=== PATIENT | female | born 1980 | race Two or more races ===

== ENCOUNTER 2020-05-28 15:28 | Outpatient (REF) | payer MEDICARE, MEDICAID, SELFPAY | END 2020-05-28 15:29 | disposition home or self-care (01) | LOC: HO.LAB 15:28 | PROVIDERS: Visit Provider Internal Medicine | DX: Z20.828 Contact with and (suspected) exposure to other viral communicable diseases (principal) | CPT/HCPCS: 87635 ==

== ENCOUNTER 2021-12-23 19:28 | Emergency (ER) | payer MEDICARE, MEDICAID, SELFPAY ==
--- NOTE | ~2021-12-23 | CT_ITS ---
EXAMINATION: CT ANGIOGRAM OF THE CHEST WITH AND WITHOUT CONTRAST (CT PULMONARY ANGIOGRAM FOR PE) CLINICAL INFORMATION: Reason for Exam right-sided chest pain with elevated D-dimer COMPARISON: Chest x-ray 12/23/2021 TECHNIQUE: Prior to contrast administration, noncontrast localization images were obtained. Subsequently, multidetector volumetric imaging was performed from the thoracic inlet to below the diaphragms following the administration of 100 mL Omnipaque 350 intravenous contrast. No contrast reaction reported Sagittal, coronal, and MIP oblique sagittal reformatted images were obtained on the CT workstation, uploaded to PACS, and reviewed. This CT examination was performed using dose optimization techniques as appropriate, variously including the following: *Automated exposure control *Adjustment of mA and/or kV according to patient size (this includes techniques or standardized protocols for targeted exams where dose is matched to indication/reason for exam; i.e. extremities or head) *Use of iterative reconstruction technique Total exam dose-length product 489 mGy-cm FINDINGS: QUALITY OF STUDY/CONTRAST BOLUS: Satisfactory. PULMONARY ARTERIES: No central or segmental pulmonary emboli. THORACIC AORTA: No aneurysm or dissection. LUNG: No focal consolidation, nodules or masses. Small calcified granuloma the right lower lobe. PLEURA: No pleural effusion or pneumothorax. MEDIASTINUM: Normal heart size. No pericardial effusion. No hilar or mediastinal lymphadenopathy. No evidence of septal bowing or right heart strain. CHEST WALL/AXILLA: No axillary or internal mammary lymphadenopathy. OSSEOUS STRUCTURES: No acute or suspicious osseous abnormality. Multilevel degenerative spondylosis of the dorsal spine. Focal bony exostosis of the posterior right fourth rib UPPER ABDOMEN: Unremarkable. No reflux of contrast into the hepatic veins to suggest elevated right heart pressures. CT/CT angio chest PE protocol IMPRESSION: No evidence of pulmonary embolism. No acute abnormality the chest. VTE: negative
--- NOTE | ~2021-12-23 | XR_ITS ---
EXAMINATION: XR CHEST CLINICAL INFORMATION: Chest pain COMPARISON: None TECHNIQUE: Frontal view of the chest was obtained. FINDINGS: No significant abnormality is noted involving the heart, lungs, mediastinum, bony thorax or soft tissues. XR/XR chest 1V IMPRESSION: Unremarkable chest examination.
--- NOTE | 2021-12-23 19:36 | ECG_ITS ---
Test Reason : chest pain Blood Pressure : / mmHG Vent. Rate : 080 BPM Atrial Rate : 080 BPM P-R Int : 160 ms QRS Dur : 092 ms QT Int : 368 ms P-R-T Axes : 029 011 024 degrees QTc Int : 424 ms Normal sinus rhythm Normal ECG No previous ECGs available Referred By: Generic ED Physician Electronically Signed By:Dwight oTledo
[2021-12-23 20:08] LABS: Basophils Absolute Auto 0.1 X10*3/uL (0.0-0.2); Basophils Percent Auto 0.8 % (0-2); Eosinophils Absolute Auto 0.2 X10*3/uL (0.0-0.4); Eosinophils Percent Auto 2.2 % (0-4); Hematocrit 37.4 % (37.0-47.0); Imm Gran Abs Auto 0.03 X10*3/uL (0.00-0.03); Imm Gran Pct Auto 0.3 % (0.0-0.4); Lymphocytes Absolute Auto 3.4 X10*3/uL (1.2-4.9); MANUAL DIFF FLAG NO; Mean Corpuscular HGB Conc 32.1 g/dl (31.0-35.0); Mean Corpuscular Hemoglobin 28.2 pg (27.0-33.0); Mean Platelet Volume 10.3 fL (9.4-12.3); Monocytes Absolute Auto 0.7 X10*3/uL (0.1-1.2); Monocytes Percent Auto 6.5 % (2-11); Neutrophils Absolute Auto 5.9 x10*3/uL (2.0-8.3); Neutrophils Percent Auto 57.2 % (45-73); Platelet Count 380 X10*3/uL (160-400); Red Blood Count 4.25 X10*6/uL (4.20-5.50); Red Cell Distribution Width 13.1 % (11.0-16.0); White Blood Count 10.4 X10*3/uL (4.8-10.8)
[2021-12-23 20:24] LABS: Anion Gap 12 (12-20); Blood Urea Nitrogen 14 mg/dL (9-16); Calcium 9.1 mg/dL (8.4-10.2); Carbon Dioxide 29 mmol/L (22-29); Chloride 101 mmol/L (96-108); Estimated Glomerular Filt Rate > 60; Glucose Random 85 mg/dL (60-115); Potassium 4.1 mmol/L (3.3-5.1); Sodium 138 mmol/L (135-145)
[2021-12-23 20:33] LABS: Troponin-I High Sensitivity < 3.5 ng/L (<3.5-17.0)
[2021-12-23 21:27] VITALS: BP 128/63; PULSE 76; RESP 18; TEMP 36.3; O2SAT 98; BMI 40.8
[2021-12-23 21:37] LABS: Appearance Urine CLEAR; Color Urine YELLOW; Glucose Urine UA NEG (NEG); Leukocyte Esterase Urine NEG (NEG); Nitrite Urine NEG (NEG); PH 6.5 (5.0-8.0); Urine Blood NEG (NEG); Urine Ketones NEG (NEG); Urine Protein NEG (NEG-TRACE)
[2021-12-23 21:38] LABS: UPreg QC Valid YES; Urine Pregnancy NEGATIVE (NEGATIVE)
--- NOTE | 2021-12-23 22:30 | ED.CHESTPAIN ---
HPI - Chest Pain General Chief Complaint: Chest Pain Stated Complaint: chest pain ,back pain, dif. 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 and on gets worse when taking deep breath and palpation no cough no shortness of breath no palpitation patient never had similar pain in the past patient not on any control pills does have a family history of blood clots but patient never had blood clots Related Data Previous Rx's Medication Instructions Recorded ibuprofen 600 mg tablet 600 mg PO Q6H PRN #20 tab 12/24/21 Allergies Allergy/AdvReac Type Severity Reaction Status Date / Time No Known Allergies Allergy Unverified 05/08/20 17:51 Review of Systems Review of Systems: Yes all other systems are reviewed and are negative [facility] Past Medical History Medical History Obese Social History Social History Advance Directives: No Physical Exam Vital Signs: Vital Signs: Last Vital Signs Temp 98.4 F 12/23/21 23:44 Pulse 70 12/23/21 23:44 Resp 18 12/23/21 23:44 BP 131/92 H 12/23/21 23:44 Pulse Ox 100 12/23/21 23:44 BMI result Body Mass Index 40.8 Appearance: Alert. Oriented X3. No acute distress. ENT: Pharynx normal. Oral Mucosa moist Neck: Normal inspection. Neck supple. CVS: Normal heart rate and rhythm. Pulses normal. Respiratory: No respiratory distress. Equal air entry bilateral, no wheezing/rales/rhonchi tenderness right 2nd intercostal space Abdomen: Soft and nontender. Bowel sounds are present, no mass palpable, Skin: Skin warm and dry. Normal skin color. Normal skin turgor. Extremities: No lower extremity edema. No calf tenderness Neuro: Oriented X 3. MDM - Chest Pain MDM Narrative Medical decision making narrative: Patient atypical pain reproducible on palpation of the 2nd right intercostal space normal EKG normal to high sensitive troponin. Patient does have family history of DVTs will check for D-dimer. 23:17 patient slightly elevated D-dimer with strong family history of DVTs get CTA chest to rule out PE 01:25 CTA chest negative for PE discharge patient home on analgesics for costochondritis Lab Data Attestation: I reviewed the patient's lab results. Result diagrams: 12/23/21 19:59 12/23/21 19:59 Labs: Lab Results 12/23/21 12/23/21 12/23/21 Range/Units 19:59 19:59 19:59 WBC 10.4 (4.8-10.8) X10*3/uL RBC 4.25 (4.20-5.50) X10*6/uL Hgb 12.0 (12.0-16.0) g/dl Hct 37.4 (37.0-47.0) % MCV 88.0 (80.0-98.0) fL MCH 28.2 (27.0-33.0) pg MCHC 32.1 (31.0-35.0) g/dl RDW 13.1 (11.0-16.0) % Plt Count 380 (160-400) X10*3/uL MPV 10.3 (9.4-12.3) fL Immature Gran % (Auto) 0.3 (0.0-0.4) % Neut % (Auto) 57.2 (45-73) % Lymph % (Auto) 33.0 (20-40) % Wetzel % (Auto) 6.5 (2-11) % Eos % (Auto) 2.2 (0-4) % Baso % (Auto) 0.8 (0-2) % Lymph # (Auto) 3.4 (1.2-4.9) X10*3/uL Wetzel # (Auto) 0.7 (0.1-1.2) X10*3/uL Eos # (Auto) 0.2 (0.0-0.4) X10*3/uL Baso # (Auto) 0.1 (0.0-0.2) X10*3/uL Abs Immat Gran (auto) 0.03 (0.00-0.03) X10*3/uL Absolute Neuts (auto) 5.9 (2.0-8.3) x10*3/uL Absolute Nucleated RBC 0.000 (0.0-0.012) X10*3/uL Nucleated RBC % (auto) 0.0 (0.0-0.2) /100WBC D-Dimer High Sensitivty NG/ML Sodium 138 (135-145) mmol/L Potassium 4.1 (3.3-5.1) mmol/L Chloride 101 (96-108) mmol/L Carbon Dioxide 29 (22-29) mmol/L Anion Gap 12 (12-20) BUN 14 (9-16) mg/dL Creatinine 0.85 (0.5-1.4) mg/dL Estim Creat Clear Calc TNP Estimated GFR > 60 Random Glucose 85 (60-115) mg/dL Calcium 9.1 (8.4-10.2) mg/dL Troponin I High Sens < 3.5 (<3.5-17.0) ng/L Urine Color Urine Appearance Urine pH (5.0-8.0) Ur Specific Wright (1.005-1.025) Urine Protein (NEG-TRACE) MG/DL Urine Glucose (UA) (NEG) MG/DL Urine Ketones (NEG) MG/DL Urine Blood (NEG) Urine Nitrite (NEG) Ur Leukocyte Esterase (NEG) Urine Test (NEGATIVE) 12/23/21 12/23/21 12/23/21 Range/Units 21:31 21:31 22:49 WBC (4.8-10.8) X10*3/uL RBC (4.20-5.50) X10*6/uL Hgb (12.0-16.0) g/dl Hct (37.0-47.0) % MCV (80.0-98.0) fL MCH (27.0-33.0) pg MCHC (31.0-35.0) g/dl RDW (11.0-16.0) % Plt Count (160-400) X10*3/uL MPV (9.4-12.3) fL Immature Gran % (Auto) (0.0-0.4) % Neut % (Auto) (45-73) % Lymph % (Auto) (20-40) % Wetzel % (Auto) (2-11) % Eos % (Auto) (0-4) % Baso % (Auto) (0-2) % Lymph # (Auto) (1.2-4.9) X10*3/uL Wetzel # (Auto) (0.1-1.2) X10*3/uL Eos # (Auto) (0.0-0.4) X10*3/uL Baso # (Auto) (0.0-0.2) X10*3/uL Abs Immat Gran (auto) (0.00-0.03) X10*3/uL Absolute Neuts (auto) (2.0-8.3) x10*3/uL Absolute Nucleated RBC (0.0-0.012) X10*3/uL Nucleated RBC % (auto) (0.0-0.2) /100WBC D-Dimer High Sensitivty 294 NG/ML Sodium (135-145) mmol/L Potassium (3.3-5.1) mmol/L Chloride (96-108) mmol/L Carbon Dioxide (22-29) mmol/L Anion Gap (12-20) BUN (9-16) mg/dL Creatinine (0.5-1.4) mg/dL Estim Creat Clear Calc Estimated GFR Random Glucose (60-115) mg/dL Calcium (8.4-10.2) mg/dL Troponin I High Sens (<3.5-17.0) ng/L Urine Color YELLOW Urine Appearance CLEAR Urine pH 6.5 (5.0-8.0) Ur Specific Wright 1.020 (1.005-1.025) Urine Protein NEG (NEG-TRACE) MG/DL Urine Glucose (UA) NEG (NEG) MG/DL Urine Ketones NEG (NEG) MG/DL Urine Blood NEG (NEG) Urine Nitrite NEG (NEG) Ur Leukocyte Esterase NEG (NEG) Urine Test NEGATIVE (NEGATIVE) ECG Data ECG #1: Attestation: I personally reviewed and interpreted this ECG as follows: Interpretation: Normal sinus rhythm heart rate 80 beats per minute normal interval normal axis no acute ST wave changes no acute ischemia impression normal EKG Discharge Plan Discharge Clinical Impression: Costalchondritis Patient Disposition: Home, Self-Care Instructions: Costochondritis (ED) Additional Instructions: Ibuprofen for pain Follow-up with PCP if any concerns Prescriptions: New ibuprofen 600 mg tablet 600 mg PO Q6H PRN (Reason: pain) Qty: 20 0RF
[2021-12-23 22:34] VITALS: BP 124/82; PULSE 71; RESP 16; TEMP 37.1; O2SAT 99
[2021-12-23 23:10] LABS: D Dimer High Sensitivity 294 NG/ML
[2021-12-23 23:44] VITALS: BP 131/92; PULSE 70; RESP 18; TEMP 36.9; O2SAT 100
[2021-12-24] MEDS: iohexoL 350 MG/ML 100 ML INFUS..BTL IV (00:24)
[2021-12-24] MEDS: Ketorolac Tromethamine 30 MG/ML VIAL IVPUSH (01:32)
== END 2021-12-24 01:56 | disposition home or self-care (01) ==
PROVIDERS: Emergency Provider Internal Medicine
DX: M94.0 Chondrocostal junction syndrome [Tietze] (principal); R79.1 Abnormal coagulation profile
CPT/HCPCS: 36415; 71045; 71275; 80048; 81003; 81025; 84484; 85025; 85379; 93005; 96374; 99284; J1885; Q9967

== ENCOUNTER 2022-03-03 17:46 | Emergency (ER) | payer MEDICARE, MEDICAID, SELFPAY ==
--- NOTE | ~2022-03-03 | US_ITS ---
EXAMINATION: US PELVIS CLINICAL INFORMATION: Ovarian torsion versus abscess, pelvic pain COMPARISON: 02/25/2015 TECHNIQUE: Ultrasound of the pelvis is performed using both transabdominal and transvaginal transducers along with Doppler. Transvaginal imaging is performed due to inadequate visualization transabdominally. FINDINGS: The uterus measures 13.0 cm in length and 4.6 x 6.9 cm in AP and transverse dimensions. Endometrial stripe measures 0.6 cm in thickness. The bilateral ovaries are only visible on transabdominal imaging. The right ovary measures 3.7 x 2.0 x 2.6 cm, and the left ovary measures 2.6 x 1.7 x 1.8 cm. Several follicles are noted bilaterally. Doppler evaluation demonstrates normal-appearing arterial and venous waveforms in the bilateral ovaries. No free fluid is seen. US/US pelvic ovarian doppler IMPRESSION: No acute findings identified.
--- NOTE | ~2022-03-03 | US_ITS ---
EXAMINATION: US PELVIS CLINICAL INFORMATION: Ovarian torsion versus abscess, pelvic pain COMPARISON: 02/25/2015 TECHNIQUE: Ultrasound of the pelvis is performed using both transabdominal and transvaginal transducers along with Doppler. Transvaginal imaging is performed due to inadequate visualization transabdominally. FINDINGS: The uterus measures 13.0 cm in length and 4.6 x 6.9 cm in AP and transverse dimensions. Endometrial stripe measures 0.6 cm in thickness. The bilateral ovaries are only visible on transabdominal imaging. The right ovary measures 3.7 x 2.0 x 2.6 cm, and the left ovary measures 2.6 x 1.7 x 1.8 cm. Several follicles are noted bilaterally. Doppler evaluation demonstrates normal-appearing arterial and venous waveforms in the bilateral ovaries. No free fluid is seen. US/US pelvic and transvaginal IMPRESSION: No acute findings identified.
--- NOTE | ~2022-03-03 | CT_ITS ---
EXAMINATION: CT ABDOMEN AND PELVIS WITHOUT CONTRAST CLINICAL INFORMATION: Left lower quadrant pain, rule out diverticulitis COMPARISON: None TECHNIQUE: Multidetector volumetric imaging was performed from the superior aspect of the liver through the pubic symphysis. Sagittal and coronal reformatted images were obtained on the technologist's workstation. This CT examination was performed using dose optimization techniques as appropriate, variously including the following: *Automated exposure control *Adjustment of mA and/or kV according to patient size (this includes techniques or standardized protocols for targeted exams where dose is matched to indication/reason for exam; i.e. extremities or head) *Use of iterative reconstruction technique DLP: 935 mGy-cm FINDINGS: LUNG BASES: The visualized lung bases are unremarkable. LIVER, GALLBLADDER, AND BILIARY TREE: The liver is normal in size, shape, and attenuation. No focal hepatic lesion or biliary ductal dilatation is present. Patient is status post cholecystectomy. PANCREAS: Unremarkable. SPLEEN: Unremarkable. ADRENAL GLANDS: Unremarkable. KIDNEYS AND URETERS: No hydronephrosis or obstructing calculus identified bilaterally. A few scattered calculi are present in the left kidney measuring up to 4 mm. BLADDER: Nearly empty and not well evaluated. GASTROINTESTINAL TRACT: No evidence of bowel obstruction. There is sigmoid colon diverticulosis without evidence of diverticulitis. The appendix is unremarkable. No free fluid or free air is seen. ABDOMINAL WALL: No significant hernia is appreciated. LYMPH NODES: Scattered mesenteric and retroperitoneal subcentimeter lymph nodes are present, without significant enlargement by size criteria. VASCULAR: Unremarkable. PELVIC VISCERA: Unremarkable. OSSEOUS STRUCTURES: Scattered degenerative endplate changes are present in the spine. CT/CT abdomen pelvis wo con IMPRESSION: No acute findings identified in the abdomen/pelvis. Colonic diverticulosis without findings of diverticulitis.
--- NOTE | 2022-03-03 17:51 | ECG_ITS ---
Test Reason : dizzy/abdminal pain Blood Pressure : / mmHG Vent. Rate : 081 BPM Atrial Rate : 081 BPM P-R Int : 162 ms QRS Dur : 082 ms QT Int : 372 ms P-R-T Axes : 037 012 027 degrees QTc Int : 432 ms Normal sinus rhythm Normal ECG When compared with ECG of 23-DEC-2021 19:46, No significant change was found Referred By: Generic ED Physician Electronically Signed By:NORA MARTINEZ MD
[2022-03-03 19:33] VITALS: BP 149/101; PULSE 84; RESP 18; TEMP 36.8; O2SAT 98; BMI 43.4
[2022-03-03 19:48] LABS: MANUAL DIFF FLAG NO
[2022-03-03 19:51] LABS: Appearance Urine CLEAR; Color Urine YELLOW; Glucose Urine UA NEG (NEG); Leukocyte Esterase Urine NEG (NEG); Nitrite Urine NEG (NEG); Specific Gravity - Urine >= 1.030 (1.005-1.025); UACC Culture Trigger NO; Urine Blood TRACE (NEG); Urine Ketones NEG (NEG); Urine Protein TRACE MG/DL (NEG-TRACE)
[2022-03-03 19:53] LABS: UPreg QC Valid YES; Urine Pregnancy NEGATIVE (NEGATIVE)
[2022-03-03 19:58] LABS: RBC Urine 0-2 /HPF (0); Squamous Epithelial Cell Urine 1+ /LPF; WBC Urine 0 /HPF (0-4)
[2022-03-03 20:00] LABS: Basophils Absolute Auto 0.1 X10*3/uL (0.0-0.2); Basophils Percent Auto 0.7 % (0-2); Eosinophils Absolute Auto 0.2 X10*3/uL (0.0-0.4); Eosinophils Percent Auto 1.6 % (0-4); Hematocrit 38.9 % (37.0-47.0); Hemoglobin 12.4 g/dl (12.0-16.0); Imm Gran Abs Auto 0.06 X10*3/uL (0.00-0.03); Imm Gran Pct Auto 0.4 % (0.0-0.4); Lymphocytes Absolute Auto 3.4 X10*3/uL (1.2-4.9); Lymphocytes Percent Auto 25.5 % (20-40); Mean Corpuscular HGB Conc 31.9 g/dl (31.0-35.0); Mean Corpuscular Hemoglobin 27.3 pg (27.0-33.0); Mean Corpuscular Volume 85.7 fL (80.0-98.0); Mean Platelet Volume 10.1 fL (9.4-12.3); Monocytes Absolute Auto 0.8 X10*3/uL (0.1-1.2); Monocytes Percent Auto 6.3 % (2-11); Neutrophils Absolute Auto 8.8 x10*3/uL (2.0-8.3); Neutrophils Percent Auto 65.5 % (45-73); Platelet Count 422 X10*3/uL (160-400); Red Blood Count 4.54 X10*6/uL (4.20-5.50); Red Cell Distribution Width 13.4 % (11.0-16.0); White Blood Count 13.4 X10*3/uL (4.8-10.8)
[2022-03-03 20:07] LABS: COVID-19 Test Negative (Negative)
[2022-03-03 20:08] LABS: Alanine Aminotransferase 38 U/L (0-31); Albumin Level 4.2 g/dL (3.5-5.0); Alkaline Phosphatase 72 U/L (39-117); Anion Gap 11 (12-20); Aspartate Amino Transferase 29 U/L (5-31); Bilirubin Total 0.4 mg/dL (0.0-1.0); Blood Urea Nitrogen 13 mg/dL (9-16); Calcium 8.8 mg/dL (8.4-10.2); Carbon Dioxide 27 mmol/L (22-29); Chloride 104 mmol/L (96-108); Creatinine Clr Calc Pharmacy 94.4; Estimated Glomerular Filt Rate > 60; Glucose Random 105 mg/dL (60-115); Potassium 4.6 mmol/L (3.3-5.1); Sodium 137 mmol/L (135-145); Total Protein 7.9 g/dL (6.5-8.0)
--- NOTE | 2022-03-04 00:18 | ED_ITS ---
HPI - Abdominal Pain General Chief Complaint: Abdominal Pain <FABIANO Coelho Last Filed: 03/04/22 03:38> Stated Complaint: Cramping/Dizziness <FABIANO Coelho Last Filed: 03/04/22 03:38> Time Seen by Provider: 03/04/22 01:56 <FABIANO Coelho Last Filed: 03/04/22 03:38> Source: patient <FABIANO Coelho Last Filed: 03/04/22 03:38> Mode of arrival: ambulatory <FABIANO Coelho Last Filed: 03/04/22 03:38> Limitations: no limitations <FABIANO Coelho Last Filed: 03/04/22 03:38> History of Present Illness HPI narrative: 41 yold female presents to the ED for lower abdominal cramping, brown discharge, and lower back pain since yesterday. Patient states irregular menstruation due to PCOS and her pain presenlty is ismiliary to her menstruation. Patient admits to be sexually active with no protection with same partner. patient admits to [facility] of PCoS and chlamydia <FABIANO Coelho Last Filed: 03/04/22 03:38> MD elicited complaint: abdominal pain <FABIANO Coelho Last Filed: 03/04/22 03:38> Related Data Home Medications: Previous Rx's Medication Instructions Recorded ibuprofen 600 mg tablet 600 mg PO Q6H PRN pain #20 tabs 12/24/21 naproxen 500 mg tablet 500 mg PO BID PRN pain 10 days #20 03/04/22 tabs <FABIANO Coelho Last Filed: 03/04/22 03:38> Allergies/Adverse Reactions: Allergies Allergy/AdvReac Type Severity Reaction Status Date / Time No Known Allergies Allergy Verified 03/03/22 19:33 <FABIANO Coelho Last Filed: 03/04/22 03:38> Review of Systems Review of Systems lower abdominal cramping with brown discharge and back pain. <FABIANO Coelho Last Filed: 03/04/22 03:38> Yes all other systems are reviewed and are negative <FABIANO Coelho Last Filed: 03/04/22 03:38> [facility] Past Medical History Medical History: Medical History Obese <FABIANO Coelho - Last Filed: 03/04/22 03:38> Social History Social History: Social History Alcohol intake: never Patient Tobacco Use Status: Current everyday Tobacco user Smoked in Last 30 Days: Yes Use of substances other than those prescribed or required for medical reasons: No Advance Directives: No Patient : No <FABIANO Coelho - Last Filed: 03/04/22 03:38> Physical Exam ED Vital Signs: Vital Signs - 24 hr 03/03/22 19:33 03/04/22 00:22 Temperature 98.2 F 97.6 F Pulse Rate 84 61 Respiratory Rate 18 17 Blood Pressure 149/101 H 125/86 Pulse Oximetry 98 98 Oxygen Delivery Method Room Air Room Air BMI result Body Mass Index 43.4 <FABIANO Coelho - Last Filed: 03/04/22 03:38> Vital Signs - 24 hr 03/03/22 19:33 03/04/22 00:22 Temperature 98.2 F 97.6 F Pulse Rate 84 61 Respiratory Rate 18 17 Blood Pressure 149/101 H 125/86 Pulse Oximetry 98 98 Oxygen Delivery Method Room Air Room Air BMI result Body Mass Index 43.4 <Seth Gann MD - Last Filed: 03/04/22 04:35> Const General: cooperative, healthy appearing, comfortable, no acute distress, well developed, alert, awake and Physically active <FABIANO Coelho - Last Filed: 03/04/22 03:38> Orientation/consciousness: oriented to time and patient oriented x3 <FABIANO Coelho Last Filed: 03/04/22 03:38> HENMT Head: Yes normal to inspection, Yes No palpable skull fracture present, Yes normocephalic, Yes atraumatic and No abrasion <FABIANO Coelho Last Filed: 03/04/22 03:38> Eyes General: appearance normal, both eyes and all related structures <FABIANO Coelho Last Filed: 03/04/22 03:38> Neck Neck: Yes normal visual inspection, Yes full ROM, Yes no lymphadenopathy, Yes no meningeal signs, Yes trachea midline, Yes supple, No anterior neck swelling and No tender <FABIANO Coelho Last Filed: 03/04/22 03:38> Chest Chest palpation & inspection: normal inspection of the chest and normal palpation of entire chest wall <FABIANO Coelho Last Filed: 03/04/22 03:38> Resp Effort & Inspection: normal respiratory effort and able to speak in complete sentences <FABIANO Neal Tolu Last Filed: 03/04/22 03:38> Auscultation: clear to auscultation bilaterally <FABIANO Coelho Last Filed: 03/04/22 03:38> Cardio Jugular venous distension: no JVD <FABIANO Coelho Last Filed: 03/04/22 03:38> Heart sounds: S1 normal heart sound present and S2 normal heart sound present <FABIANO Coelho Last Filed: 03/04/22 03:38> GI Inspection: Yes normal to inspection and No abdominal wall ecchymosis <FABIANO Coelho Tolu Last Filed: 03/04/22 03:38> Palpation (GI): Soft to palpation, not firm, Tenderness to palpation present (GI) suprapubicly (bilaterally), no guarding and not rigid <FABIANO Coelho Tolu Last Filed: 03/04/22 03:38> Other: positive for adenxal tenderness bilaterally on palpation. Positive for mucus is discharged. Mild CMT. <FABIANO Coelho Tolu Last Filed: 03/04/22 03:38> General: No CVA tenderness and Yes no CVA tenderness <FABIANO Coelho Tolu Last Filed: 03/04/22 03:38> Back/Spine/Pelvis Back: no CVA tenderness, No CVA tenderness and No ecchymosis <FABIANO Coelho Last Filed: 03/04/22 03:38> Skin General skin exam: no rashes or lesions noted and elasticity normal <FABIANO Coelho Tolu Last Filed: 03/04/22 03:38> Neuro General: oriented to time, patient oriented x3, gait normal, no meningeal signs and CN's II-XI intact bilaterally <FABIANO Coelho - Last Filed: 03/04/22 03:38> Cranial nerves: Yes CN's II-XII intact bilaterally <FABIANO Coelho - Last Filed: 03/04/22 03:38> Extrem General: Yes normal to inspection and Yes full ROM <FABIANO Coelho - Last Filed: 03/04/22 03:38> Psych Appearance: grossly normal, well kempt and not disheveled <FABIANO Coelho - Last Filed: 03/04/22 03:38> Course Course Course Narrative: labs ordered <FABIANO Coelho - Last Filed: 03/04/22 03:38> Reevaluation(s) Reevaluation #1: Pending ultrasound. The EKG negative STEMI. Pending troponin due to patient stating dizziness earlier yesterday morning and she is 41 years old. No need for head CT scan not suspect stroke. NIH score 0. patient feels better after receiving Toradol. Ultrasound and troponin pending. Dr. jin will follow <FABIANO Coelho - Last Filed: 03/04/22 03:38> Time: 03:25 <FABINAO Coelho - Last Filed: 03/04/22 03:38> MDM - Abdominal Pain MDM Narrative Medical decision making narrative: Pelvic pain <FABIANO Coelho - Last Filed: 03/04/22 03:38> Patient with lower abdominal pain ultrasound negative for Matteo cyst CT scan was also done which is negative for diverticulitis patient had diverti culosis and nonspecific lower abdominal pain vitals are stable labs are stable discharge patient home <Seth Gann MD - Last Filed: 03/04/22 04:35> Lab Data Attestation: I reviewed the patient's lab results. <Seth Gann MD - Last Filed: 03/04/22 04:35> Result diagrams: : 03/03/22 19:42 03/03/22 19:42 <FABIANO Coelho - Last Filed: 03/04/22 03:38> Labs: Lab Results 03/03/22 03/03/22 03/03/22 Range/Units 19:42 19:42 19:42 WBC 13.4 H (4.8-10.8) X10*3/uL RBC 4.54 (4.20-5.50) X10*6/uL Hgb 12.4 (12.0-16.0) g/dl Hct 38.9 (37.0-47.0) % MCV 85.7 (80.0-98.0) fL MCH 27.3 (27.0-33.0) pg MCHC 31.9 (31.0-35.0) g/dl RDW 13.4 (11.0-16.0) % Plt Count 422 H (160-400) X10*3/uL MPV 10.1 (9.4-12.3) fL Immature Gran % (Auto) 0.4 (0.0-0.4) % Neut % (Auto) 65.5 (45-73) % Lymph % (Auto) 25.5 (20-40) % Dane % (Auto) 6.3 (2-11) % Eos % (Auto) 1.6 (0-4) % Baso % (Auto) 0.7 (0-2) % Lymph # (Auto) 3.4 (1.2-4.9) X10*3/uL Dane # (Auto) 0.8 (0.1-1.2) X10*3/uL Eos # (Auto) 0.2 (0.0-0.4) X10*3/uL Baso # (Auto) 0.1 (0.0-0.2) X10*3/uL Abs Immat Gran (auto) 0.06 H (0.00-0.03) X10*3/uL Absolute Neuts (auto) 8.8 H (2.0-8.3) x10*3/uL Absolute Nucleated RBC 0.000 (0.0-0.012) X10*3/uL Nucleated RBC % (auto) 0.0 (0.0-0.2) /100WBC Sodium 137 (135-145) mmol/L Potassium 4.6 (3.3-5.1) mmol/L Chloride 104 (96-108) mmol/L Carbon Dioxide 27 (22-29) mmol/L Anion Gap 11 L (12-20) BUN 13 (9-16) mg/dL Creatinine 0.88 (0.5-1.4) mg/dL Estim Creat Clear Calc 94.4 Estimated GFR > 60 Random Glucose 105 (60-115) mg/dL Calcium 8.8 (8.4-10.2) mg/dL Total Bilirubin 0.4 (0.0-1.0) mg/dL AST 29 (5-31) U/L ALT 38 H (0-31) U/L Alkaline Phosphatase 72 (39-117) U/L Total Protein 7.9 (6.5-8.0) g/dL Albumin 4.2 (3.5-5.0) g/dL Urine Color Urine Appearance Urine pH (5.0-8.0) Ur Specific [place] (1.005-1.025) Urine Protein (NEG-TRACE) MG/DL Urine Glucose (UA) (NEG) MG/DL Urine Ketones (NEG) MG/DL Urine Blood (NEG) Urine Nitrite (NEG) Ur Leukocyte Esterase (NEG) Urine RBC (0) /HPF Urine WBC (0-4) /HPF Ur Squamous Epith Cells /LPF Urine Bacteria /LPF Urine Test NEGATIVE (NEGATIVE) Chlam trachomat DNA PCR (Not Detect.) COVID-19 (ZOË) (Negative) COVID-19 Clin Com N.gonorrhoeae DNA (PCR) (Not Detect.) 03/03/22 03/03/22 03/04/22 Range/Units 19:42 19:42 00:41 WBC (4.8-10.8) X10*3/uL RBC (4.20-5.50) X10*6/uL Hgb (12.0-16.0) g/dl Hct (37.0-47.0) % MCV (80.0-98.0) fL MCH (27.0-33.0) pg MCHC (31.0-35.0) g/dl RDW (11.0-16.0) % Plt Count (160-400) X10*3/uL MPV (9.4-12.3) fL Immature Gran % (Auto) (0.0-0.4) % Neut % (Auto) (45-73) % Lymph % (Auto) (20-40) % Dane % (Auto) (2-11) % Eos % (Auto) (0-4) % Baso % (Auto) (0-2) % Lymph # (Auto) (1.2-4.9) X10*3/uL Dane # (Auto) (0.1-1.2) X10*3/uL Eos # (Auto) (0.0-0.4) X10*3/uL Baso # (Auto) (0.0-0.2) X10*3/uL Abs Immat Gran (auto) (0.00-0.03) X10*3/uL Absolute Neuts (auto) (2.0-8.3) x10*3/uL Absolute Nucleated RBC (0.0-0.012) X10*3/uL Nucleated RBC % (auto) (0.0-0.2) /100WBC Sodium (135-145) mmol/L Potassium (3.3-5.1) mmol/L Chloride (96-108) mmol/L Carbon Dioxide (22-29) mmol/L Anion Gap (12-20) BUN (9-16) mg/dL Creatinine (0.5-1.4) mg/dL Estim Creat Clear Calc Estimated GFR Random Glucose (60-115) mg/dL Calcium (8.4-10.2) mg/dL Total Bilirubin (0.0-1.0) mg/dL AST (5-31) U/L ALT (0-31) U/L Alkaline Phosphatase (39-117) U/L Total Protein (6.5-8.0) g/dL Albumin (3.5-5.0) g/dL Urine Color YELLOW Urine Appearance CLEAR Urine pH 6.0 (5.0-8.0) Ur Specific [place] >= 1.030 H (1.005-1.025) Urine Protein TRACE (NEG-TRACE) MG/DL Urine Glucose (UA) NEG (NEG) MG/DL Urine Ketones NEG (NEG) MG/DL Urine Blood TRACE (NEG) Urine Nitrite NEG (NEG) Ur Leukocyte Esterase NEG (NEG) Urine RBC 0-2 (0) /HPF Urine WBC 0 (0-4) /HPF Ur Squamous Epith Cells 1+ /LPF Urine Bacteria NONE /LPF Urine Test (NEGATIVE) Chlam trachomat DNA PCR NOT DETECTED (Not Detect.) COVID-19 (ZOË) Negative (Negative) COVID-19 Clin Com See Note N.gonorrhoeae DNA (PCR) NOT DETECTED (Not Detect.) <FABIANO Coelho - Last Filed: 03/04/22 03:38> Lab Results 03/03/22 03/03/22 03/03/22 Range/Units 19:42 19:42 19:42 WBC 13.4 H (4.8-10.8) X10*3/uL RBC 4.54 (4.20-5.50) X10*6/uL Hgb 12.4 (12.0-16.0) g/dl Hct 38.9 (37.0-47.0) % MCV 85.7 (80.0-98.0) fL MCH 27.3 (27.0-33.0) pg MCHC 31.9 (31.0-35.0) g/dl RDW 13.4 (11.0-16.0) % Plt Count 422 H (160-400) X10*3/uL MPV 10.1 (9.4-12.3) fL Immature Gran % (Auto) 0.4 (0.0-0.4) % Neut % (Auto) 65.5 (45-73) % Lymph % (Auto) 25.5 (20-40) % Dane % (Auto) 6.3 (2-11) % Eos % (Auto) 1.6 (0-4) % Baso % (Auto) 0.7 (0-2) % Lymph # (Auto) 3.4 (1.2-4.9) X10*3/uL Dane # (Auto) 0.8 (0.1-1.2) X10*3/uL Eos # (Auto) 0.2 (0.0-0.4) X10*3/uL Baso # (Auto) 0.1 (0.0-0.2) X10*3/uL Abs Immat Gran (auto) 0.06 H (0.00-0.03) X10*3/uL Absolute Neuts (auto) 8.8 H (2.0-8.3) x10*3/uL Absolute Nucleated RBC 0.000 (0.0-0.012) X10*3/uL Nucleated RBC % (auto) 0.0 (0.0-0.2) /100WBC Sodium 137 (135-145) mmol/L Potassium 4.6 (3.3-5.1) mmol/L Chloride 104 (96-108) mmol/L Carbon Dioxide 27 (22-29) mmol/L Anion Gap 11 L (12-20) BUN 13 (9-16) mg/dL Creatinine 0.88 (0.5-1.4) mg/dL Estim Creat Clear Calc 94.4 Estimated GFR > 60 Random Glucose 105 (60-115) mg/dL Calcium 8.8 (8.4-10.2) mg/dL Total Bilirubin 0.4 (0.0-1.0) mg/dL AST 29 (5-31) U/L ALT 38 H (0-31) U/L Alkaline Phosphatase 72 (39-117) U/L Total Protein 7.9 (6.5-8.0) g/dL Albumin 4.2 (3.5-5.0) g/dL Urine Color Urine Appearance Urine pH (5.0-8.0) Ur Specific [place] (1.005-1.025) Urine Protein (NEG-TRACE) MG/DL Urine Glucose (UA) (NEG) MG/DL Urine Ketones (NEG) MG/DL Urine Blood (NEG) Urine Nitrite (NEG) Ur Leukocyte Esterase (NEG) Urine RBC (0) /HPF Urine WBC (0-4) /HPF Ur Squamous Epith Cells /LPF Urine Bacteria /LPF Urine Test NEGATIVE (NEGATIVE) Chlam trachomat DNA PCR (Not Detect.) COVID-19 (ZOË) (Negative) COVID-19 Clin Com N.gonorrhoeae DNA (PCR) (Not Detect.) 03/03/22 03/03/22 03/04/22 Range/Units 19:42 19:42 00:41 WBC (4.8-10.8) X10*3/uL RBC (4.20-5.50) X10*6/uL Hgb (12.0-16.0) g/dl Hct (37.0-47.0) % MCV (80.0-98.0) fL MCH (27.0-33.0) pg MCHC (31.0-35.0) g/dl RDW (11.0-16.0) % Plt Count (160-400) X10*3/uL MPV (9.4-12.3) fL Immature Gran % (Auto) (0.0-0.4) % Neut % (Auto) (45-73) % Lymph % (Auto) (20-40) % Dane % (Auto) (2-11) % Eos % (Auto) (0-4) % Baso % (Auto) (0-2) % Lymph # (Auto) (1.2-4.9) X10*3/uL Dane # (Auto) (0.1-1.2) X10*3/uL Eos # (Auto) (0.0-0.4) X10*3/uL Baso # (Auto) (0.0-0.2) X10*3/uL Abs Immat Gran (auto) (0.00-0.03) X10*3/uL Absolute Neuts (auto) (2.0-8.3) x10*3/uL Absolute Nucleated RBC (0.0-0.012) X10*3/uL Nucleated RBC % (auto) (0.0-0.2) /100WBC Sodium (135-145) mmol/L Potassium (3.3-5.1) mmol/L Chloride (96-108) mmol/L Carbon Dioxide (22-29) mmol/L Anion Gap (12-20) BUN (9-16) mg/dL Creatinine (0.5-1.4) mg/dL Estim Creat Clear Calc Estimated GFR Random Glucose (60-115) mg/dL Calcium (8.4-10.2) mg/dL Total Bilirubin (0.0-1.0) mg/dL AST (5-31) U/L ALT (0-31) U/L Alkaline Phosphatase (39-117) U/L Total Protein (6.5-8.0) g/dL Albumin (3.5-5.0) g/dL Urine Color YELLOW Urine Appearance CLEAR Urine pH 6.0 (5.0-8.0) Ur Specific [place] >= 1.030 H (1.005-1.025) Urine Protein TRACE (NEG-TRACE) MG/DL Urine Glucose (UA) NEG (NEG) MG/DL Urine Ketones NEG (NEG) MG/DL Urine Blood TRACE (NEG) Urine Nitrite NEG (NEG) Ur Leukocyte Esterase NEG (NEG) Urine RBC 0-2 (0) /HPF Urine WBC 0 (0-4) /HPF Ur Squamous Epith Cells 1+ /LPF Urine Bacteria NONE /LPF Urine Test (NEGATIVE) Chlam trachomat DNA PCR NOT DETECTED (Not Detect.) COVID-19 (ZOË) Negative (Negative) COVID-19 Clin Com See Note N.gonorrhoeae DNA (PCR) NOT DETECTED (Not Detect.) <Seth Gann MD - Last Filed: 03/04/22 04:35> ECG Data Interpretation: NOrmal Sinus rhythm. Vent rate 81, IL 162, QRS 82, and QTC 432 <FABIANO Coelho Last Filed: 03/04/22 03:38> Discharge Plan Discharge Clinical Impression: Pelvic pain, Abdominal pain <FABIANO Coelho Last Filed: 03/04/22 03:38> Patient Disposition: Home, Self-Care <FABIANO Coelho Last Filed: 03/04/22 03:38> Instructions: Abdominal Pain (ED), Pelvic Pain (ED) <FABIANO Coelho Last Filed: 03/04/22 03:38> Additional Instructions: return to ED for any worsening abdominal pain, nausea, vomiting, fever, chills, dysuria, hematuria, flank pain, loss of appetite, vaginal discharge, vaginal bleeding, or any other concerning symptoms. Please follow-up primary care provider OBGYN <FABIANO Coelho - Last Filed: 03/04/22 03:38> Prescriptions: New naproxen 500 mg tablet 500 mg PO BID PRN (Reason: pain) 10 Days Qty: 20 0RF No Action ibuprofen 600 mg tablet 600 mg PO Q6H PRN (Reason: pain) Qty: 20 0RF <FABIANO Coelho Last Filed: 03/04/22 03:38> Stand Alone Forms: Work/School Release <FABIANO Coelho Last Filed: 03/04/22 03:38> Print Language: Luxembourgish <FABIANO Coelho Last Filed: 03/04/22 03:38>
[2022-03-04 00:22] VITALS: BP 125/86; PULSE 61; RESP 17; TEMP 36.4; O2SAT 98
[2022-03-04] MEDS: Ketorolac Tromethamine 30 MG/ML VIAL IM (01:38)
--- NOTE | 2022-03-04 01:44 | PC.NURSE ---
administered medication to pt per MAR
[2022-03-04 02:20] LABS: CT PCR NOT DETECTED (Not Detect.); NG PCR NOT DETECTED (Not Detect.)
[2022-03-04 09:27] LABS: BV Int Neg Control Negative (Negative); BV Int Pos Control Positive (Positive)
== END 2022-03-04 04:52 | disposition home or self-care (01) ==
PROVIDERS: Physician Assistant; Emergency Provider Internal Medicine
DX: R10.2 Pelvic and perineal pain (principal); R10.9 Unspecified abdominal pain; E66.9 Obesity, unspecified; Z68.41 Body mass index [BMI] 40.0-44.9, adult; F17.200 Nicotine dependence, unspecified, uncomplicated; Z20.822 Contact with and (suspected) exposure to COVID-19
CPT/HCPCS: 74176; 76830; 76856; 80053; 81001; 81025; 85025; 87480; 87491; 87510; 87591; 87635; 87660; 93005; 93975; 96372; 99284; 99285; J1885

== ENCOUNTER 2022-05-11 18:58 | Emergency (ER) | payer MEDICARE, MEDICAID, SELFPAY ==
[2022-05-11 19:12] VITALS: BP 145/83; PULSE 62; RESP 18; TEMP 36.4; O2SAT 99; BMI 47.2
[2022-05-11 20:07] LABS: MANUAL DIFF FLAG NO
[2022-05-11 20:09] LABS: Basophils Absolute Auto 0.1 X10*3/uL (0.0-0.2); Basophils Percent Auto 0.9 % (0-2); Eosinophils Absolute Auto 0.3 X10*3/uL (0.0-0.4); Eosinophils Percent Auto 2.9 % (0-4); Hematocrit 38.9 % (37.0-47.0); Hemoglobin 12.5 g/dl (12.0-16.0); Imm Gran Abs Auto 0.03 X10*3/uL (0.00-0.03); Imm Gran Pct Auto 0.3 % (0.0-0.4); Lymphocytes Absolute Auto 3.4 X10*3/uL (1.2-4.9); Lymphocytes Percent Auto 36.1 % (20-40); Mean Corpuscular HGB Conc 32.1 g/dl (31.0-35.0); Mean Corpuscular Hemoglobin 27.4 pg (27.0-33.0); Mean Corpuscular Volume 85.3 fL (80.0-98.0); Mean Platelet Volume 9.6 fL (9.4-12.3); Monocytes Absolute Auto 0.6 X10*3/uL (0.1-1.2); Monocytes Percent Auto 6.4 % (2-11); Neutrophils Percent Auto 53.4 % (45-73); Platelet Count 397 X10*3/uL (160-400); Red Blood Count 4.56 X10*6/uL (4.20-5.50); White Blood Count 9.4 X10*3/uL (4.8-10.8)
[2022-05-11 20:45] LABS: Anion Gap 17 (12-20); Blood Urea Nitrogen 12 mg/dL (9-16); Calcium 9.1 mg/dL (8.4-10.2); Carbon Dioxide 28 mmol/L (22-29); Chloride 100 mmol/L (96-108); Creatinine Clr Calc Pharmacy 121.4; Estimated Glomerular Filt Rate > 60; Glucose Random 107 mg/dL (60-115); Potassium 4.5 mmol/L (3.3-5.1); Sodium 140 mmol/L (135-145)
== END 2022-05-12 00:45 | disposition left against medical advice (07) ==
PROVIDERS: Emergency Provider Emergency Medicine
DX: R10.9 Unspecified abdominal pain (principal); R07.9 Chest pain, unspecified
CPT/HCPCS: 36415; 80048; 85025; 99281; 99283

== ENCOUNTER 2023-03-31 16:17 | Outpatient (REF) | payer OTHER, SELFPAY ==
[2023-03-31 18:57] LABS: Alanine Aminotransferase 77 U/L (0-31); Albumin Level 4.1 g/dL (3.5-5.0); Alkaline Phosphatase 68 U/L (39-117); Anion Gap 12 (12-20); Aspartate Amino Transferase 59 U/L (5-31); Bilirubin Total 0.9 mg/dL (0.0-1.0); Blood Urea Nitrogen 6 mg/dL (9-16); Calcium 9.4 mg/dL (8.4-10.2); Carbon Dioxide 24 mmol/L (22-29); Chloride 105 mmol/L (96-108); Cholesterol 137 mg/dL; Estimated Glomerular Filt Rate > 60; Glucose Random 88 mg/dL (60-115); HDL Cholesterol 35 mg/dL; LDL Cholesterol Calculated 85 mg/dl; Potassium 4.3 mmol/L (3.3-5.1); Sodium 137 mmol/L (135-145); Total Protein 8.5 g/dL (6.5-8.0); Triglycerides 87 mg/dL
[2023-03-31 19:07] LABS: TSH reflex Free T4 1.28 uIU/mL (0.32-4.0)
[2023-04-01 02:58] LABS: Syphilis Screen Nonreactive (Nonreactive)
[2023-04-01 03:08] LABS: HIV AB/AG Nonreactive (Nonreactive); HIV Num 1 0.06 S/CO (0.00-0.99)
[2023-04-01 05:28] LABS: Estimated Average Glucose 111 mg/dL; Hemoglobin A1c % 5.5 %
[2023-04-01 06:41] LABS: CT PCR NOT DETECTED (Not Detect.); NG PCR NOT DETECTED (Not Detect.)
[2023-04-05 13:53] LABS: HCV Log PCR <1.18 NOT DETECTED Log IU/mL (NOT DETECTED); HepC Viral Load <15 NOT DETECTED IU/mL (NOT DETECTED)
== END 2023-03-31 16:18 | disposition home or self-care (01) ==
LOC: HO.HHCL 16:17
PROVIDERS: Visit Provider Registered Nurse
DX: Z00.00 Encounter for general adult medical examination without abnormal findings (principal); Z11.4 Encounter for screening for human immunodeficiency virus [HIV]; Z20.2 Contact with and (suspected) exposure to infections with a predominantly sexual mode of transmission; E66.01 Morbid (severe) obesity due to excess calories; R63.2 Polyphagia; Z86.32 Personal history of gestational diabetes
CPT/HCPCS: 0353U; 80053; 80061; 83036; 84443; 86780; 87389; 87522

== ENCOUNTER 2023-04-12 15:54 | Outpatient (REF) | payer OTHER, SELFPAY ==
--- NOTE | ~2023-04-12 | MM_ITS ---
EXAMINATION: MM SCREENING DIGITAL BREAST TOMOSYNTHESIS, BILATERAL CLINICAL INFORMATION: Screening. Asymptomatic. COMPARISON: Mammography: This study is compared with the only prior mammogram for comparison from 2015. TECHNIQUE: Digital breast tomosynthesis is performed in both the craniocaudal and mediolateral oblique views along with computer-aided detection (CAD). Synthesized 2D images are generated from the tomosynthesis. FINDINGS: There are scattered areas of fibroglandular density (ACR BI-RADS breast composition Category b). The patient has bilateral nipple rings. There are no significant masses, abnormal calcifications, or other abnormalities. MM/MM tomosynthesis screening BI IMPRESSION: No mammographic evidence of malignancy. ASSESSMENT: BI-RADS BI-RADS 1 - Negative RECOMMENDATION: Routine annual mammography screening. 1 year F/U This examination should not preclude the clinical evaluation of a suspicious palpable abnormality. This patient's information was entered into a reminder system with a target due date for their next mammogram.
== END 2023-04-12 15:55 | disposition home or self-care (01) ==
LOC: HO.MAMMO 15:54
PROVIDERS: PCP Registered Nurse; Visit Provider Registered Nurse
DX: Z12.31 Encounter for screening mammogram for malignant neoplasm of breast (principal)
CPT/HCPCS: 77063; 77067

== ENCOUNTER → 2023-04-12 16:15 | Outpatient (BNV) | payer OTHER, SELFPAY | PROVIDERS: PCP Registered Nurse; Visit Provider Radiology Diagnostic Radiology | DX: Z12.31 Encounter for screening mammogram for malignant neoplasm of breast (principal) | CPT/HCPCS: 77063; 77067 ==

== ENCOUNTER 2023-04-15 18:10 | Outpatient (REF) | payer OTHER, SELFPAY ==
[2023-04-15 18:24] LABS: Appearance Urine Clear; Color Urine Yellow; Glucose Urine UA Negative (Negative); Leukocyte Esterase Urine Trace (Negative); Nitrite Urine Negative (Negative); PH 6.5 (5.0-9.0); Specific Gravity - Urine 1.015 (1.005-1.025); UMIC TRIGGER UACC YES; Urine Blood Negative (Negative); Urine Ketones Negative (Negative); Urine Protein Negative (Neg-Trace)
[2023-04-15 18:29] LABS: Bacteria Urine None Seen (None Seen); Hyaline Casts Urine 0-2 /LPF (0-2); Squamous Epithelial Cell Urine 0-2 /HPF (0-2); WBC Urine 0-5 /HPF (0-5)
== END 2023-04-15 18:11 | disposition home or self-care (01) ==
LOC: HO.LNP 18:10
PROVIDERS: Visit Provider Internal Medicine
DX: R39.9 Unspecified symptoms and signs involving the genitourinary system (principal)
CPT/HCPCS: 81001

== ENCOUNTER 2023-06-21 19:53 | Outpatient (REF) | payer OTHER, SELFPAY ==
[2023-06-22 11:20] LABS: BV Int Neg Control Negative (Negative); BV Int Pos Control Positive (Positive)
[2023-06-25 06:58] LABS: HPV 16 RNA NOT DETECTED (NOT DETECTED); HPV mRNA E6/E7 rflx Detected (Not Detected)
== END 2023-06-21 19:54 | disposition home or self-care (01) ==
LOC: HO.CHCLNP 19:53
PROVIDERS: Visit Provider Advanced Practice Midwife
DX: Z12.4 Encounter for screening for malignant neoplasm of cervix (principal); Z11.51 Encounter for screening for human papillomavirus (HPV); N89.8 Other specified noninflammatory disorders of vagina
CPT/HCPCS: 87480; 87510; 87624; 87625; 87660; 88142

== ENCOUNTER 2023-07-18 11:55 | Outpatient (REF) | payer OTHER, SELFPAY ==
[2023-07-18 14:37] LABS: Alanine Aminotransferase 88 U/L (0-31); Albumin Level 4.1 g/dL (3.5-5.0); Alkaline Phosphatase 74 U/L (39-117); Aspartate Amino Transferase 63 U/L (5-31); Bilirubin Direct 0.4 mg/dL (0.0-0.5); Bilirubin Total 0.9 mg/dL (0.0-1.0); Total Protein 8.7 g/dL (6.5-8.0)
[2023-07-18 15:13] LABS: Influenza A PCR NEGATIVE (Negative); Influenza B PCR NEGATIVE (Negative); Resp Syncy Virus RNA Qual PCR POSITIVE (Negative); SARS COV2 PCR INHOUSE NEGATIVE (Negative)
[2023-07-19 08:02] LABS: HBS Num1 88.47 mIU/mL (0-7.99); HBc Num1 0.11 S/CO (0.00-0.79); HBsAGNum1 0.29 S/CO (0.00-0.99); Hepatitis B Core Antibody Nonreactive (Nonreactive); Hepatitis B Surface Antigen Negative (Negative); ~Hepatitis B Surface Antibody REACTIVE (Nonreactive)
[2023-07-19 08:14] LABS: Hepatitis A Antibody IgM 0.13 Index (0-0.79); ~Hepatitis A Antibody IgM Nonreactive (Nonreactive)
== END 2023-07-18 11:56 | disposition home or self-care (01) ==
LOC: HO.CHCLDS 11:55
PROVIDERS: Visit Provider Registered Nurse
DX: R74.8 Abnormal levels of other serum enzymes (principal); E66.01 Morbid (severe) obesity due to excess calories; R07.2 Precordial pain; I25.10 Atherosclerotic heart disease of native coronary artery without angina pectoris; Z68.43 Body mass index [BMI] 50.0-59.9, adult; Z20.822 Contact with and (suspected) exposure to COVID-19; Z79.899 Other long term (current) drug therapy
CPT/HCPCS: 0241U; 80076; 86704; 86706; 86709; 87070; 87340; 93005; 99202

== ENCOUNTER 2023-07-18 12:35 | Outpatient (AMB) | payer OTHER, SELFPAY ==
--- NOTE | 2023-07-18 12:42 | A.OFFVIS_ITS ---
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 She states that she has been under lot of stress at home as her daughter turned 18 and being disrespectful to her. She gets sharp chest pains at different times. No specific patterns and can happen any time. With or without activity. No known cardiac issues. No history of any coronary disease or myocardial infarction or cardiomyopathy. 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 Patient herself has a history of smoking but not recently. She is morbidly obese. [facility] Medical History (Updated 07/18/23 @ 12:57 by Andrea Melendez MD) Obese Surgical History (Updated 07/18/23 @ 12:47 by Ashleigh Gaspar) Hx of lithotripsy Hx of section History of carpal tunnel surgery Family History (Updated 07/18/23 @ 12:46 by Ashleigh Gaspar) Son History of open heart surgery (Updated 07/18/23 @ 12:56 by Andrea Melendez MD) Alcohol intake: never Patient Tobacco Use Status: Former Tobacco user Review of Systems Const Denies chills, Denies daytime sleepiness, Denies fatigue, Denies fever(s), Denies frequent falls, Denies night sweats, Denies snoring, Denies weakness, Denies weight gain and Denies weight loss Eyes Denies loss of vision ENT Denies dizziness and Denies hearing loss Card Denies chest pain, Denies chest pain with activity, Denies syncope, Denies rapid heart rate, Denies edema, Denies claudication, Denies leg edema, Denies lightheadedness, Denies palpitations, Denies dyspnea, Denies dyspnea on exertion and Denies orthopnea Resp Denies cough, Denies excessive phlegm production, Denies dyspnea, Denies dyspnea on exertion, Denies snoring and Denies wheezing GI Denies abdominal pain, Denies hematochezia, Denies change in bowel habits, Denies change in stool character, Denies heartburn, Denies nausea and Denies vomiting Denies hematuria, Denies urinary frequency and Denies dysuria Musc Denies arthralgias, Denies muscle weakness, Denies numbness and Denies tingling Skin/Breast Denies nail changes and Denies rash Neuro Denies Abnormal speech present, Denies dizziness, Denies syncope, Denies frequent falls, Denies loss of vision, Denies memory loss, Denies numbness, Denies tingling and Denies weakness Psych Denies depression and Denies memory loss Endo Denies fatigue and Denies palpitations Aller/Immun Denies wheezing Physical Exam Vital Signs: Last Vital Signs Pulse 83 07/18/23 12:43 BP 120/84 07/18/23 12:43 BMI result Body Mass Index 50.0 Const General: comfortable and no acute distress Orientation/consciousness: patient oriented x3 HEENT Other: Unremarkable Head: Yes normal to inspection Neck Neck: Yes normal visual inspection Chest Chest palpation & inspection: normal inspection of the chest Resp Auscultation: clear to auscultation bilaterally Cardio Palpation: normal PMI Heart sounds: S1 normal heart sound present, S2 normal heart sound present, no gallops, no murmurs and no rubs GI Palpation (GI): Soft to palpation Back/Spine/Pelvis Other: unremarkable Skin General skin exam: no rashes or lesions noted Neuro General: patient oriented x3 Speech: No Abnormal speech present Extrem General: Yes normal to inspection Psych Mental Status: mental status grossly normal Office Procedures EKG Details: EKG with sinus rhythm at 83/Min; no significant ST-T changes and otherwise unremarkable[place] [id number], Complete Assessment & Plan Assessment & Plan (1) Precordial chest pain: Code(s): R07.2 - Precordial pain Plan Atypical chest pain, morbidly obese, smoking history. Get echocardiogram and exercise stress test. Based on findings, can plan further care. Orders: Orders CA echo transthoracic complete Today I25.10 - Atherosclerotic heart disease of [place] coronary artery without angina pectoris, R07.2 - Precordial pain CA stress test Today R07.2 - Precordial pain Medications: Changed From naproxen 500 mg PO BID 10 days PRN 20 tabs 0RF pain To naproxen 500 mg PO BID PRN Coding Level of Care Code New Pt Level 3 (77092) Diagnoses Precordial chest pain R07.2 CPT Codes EKG - CPT: 48779-[id number], Complete ([id number])
[2023-07-18 12:43] VITALS: BP 120/84; PULSE 83; BMI 50.0
== END 2023-07-18 13:05 | disposition home or self-care (01) ==
PROVIDERS: PCP Registered Nurse; Visit Provider Internal Medicine
DX: R07.2 Precordial pain (principal)
CPT/HCPCS: 93010; 99203

== ENCOUNTER 2023-07-28 17:04 | Emergency (ER) | payer OTHER, SELFPAY | END 2023-07-28 19:17 | disposition left against medical advice (07) | PROVIDERS: Emergency Provider Emergency Medicine | DX: M25.569 Pain in unspecified knee (principal); M54.9 Dorsalgia, unspecified; Z91.81 History of falling; Z53.21 Procedure and treatment not carried out due to patient leaving prior to being seen by health care provider ==

== ENCOUNTER → 2023-08-24 10:06 | Outpatient (REF) | payer OTHER, MEDICAID, SELFPAY ==
--- NOTE | 2023-08-24 10:08 | CA_ITS ---
Acquisition Time: 2023-08-24 10:04:50 Total Exercise Time: 00:05:01 Test Indications: CP Medications: SEE H Protocol: WALTER Max HR: 160 BPM 89% of Pred: 178 BPM Max BP: 158/074 mmHG Max Work Load: 7.0 METS Exercise stress test exercise 5 min 1 sec of Walter protocol achieving 89% MPHR, with moderate SOB, 5/10 chest heaviness at baseline, 7/10 chest heaviness, without arrhythmais, with normotensive response to exercise, with scooping in leads 2, 3, and aVF, Breathing and chest heaviness returned to baseline. Test reviewed with Dr. Toledo. Referred By: Andrea Melendez Overread By: Miracle Diaz
== END ==
LOC: HO.CARD 10:06
PROVIDERS: PCP Registered Nurse; Visit Provider Internal Medicine
DX: R07.2 Precordial pain (principal)
CPT/HCPCS: 93017

== ENCOUNTER → 2023-08-24 10:08 | Outpatient (BNV) | payer OTHER, SELFPAY | PROVIDERS: PCP Registered Nurse; Visit Provider Nurse Practitioner | DX: R07.2 Precordial pain (principal) | CPT/HCPCS: 93016; 93018 ==

== ENCOUNTER 2023-09-09 14:36 | Outpatient (REF) | payer OTHER, SELFPAY ==
--- NOTE | ~2023-09-09 | US_ITS ---
EXAMINATION: US PELVIS CLINICAL INFORMATION: Excessive and frequent menstruation with regular cycle, last menstrual period May 2023. COMPARISON: CT abdomen and pelvis 03/04/2022. Ultrasound pelvis 03/04/2022. TECHNIQUE: Ultrasound of the pelvis is performed using both transabdominal and transvaginal transducers along with Doppler. Transvaginal imaging is performed due to inadequate visualization transabdominally. FINDINGS: The uterus measures 13.4 x 3.5 x 6.0 cm. No discrete fibroids. Endometrial thickness is 0.7 cm. Visualization of uterus and endometrium is limited on transvaginal ultrasound images due to length of uterus and bowel gas. Left ovary measures 3.0 x 2.5 x 2.2 cm, volume 8.6 mm and is unremarkable. Right ovary measures 3.7 x 1.9 x 1.9 cm, volume 7.0 mL and is grossly unremarkable. Possible small amount of free fluid adjacent to the right ovary. Limited visualization of the bilateral ovaries due to bowel gas. The bilateral ovaries are grossly unremarkable. US/US pelvic and transvaginal IMPRESSION: 1. Endometrial thickness is 0.7 cm. 2. Possible small amount of free fluid adjacent to the right ovary. 3. Limited visualization of the bilateral ovaries due to bowel gas.
== END 2023-09-09 14:37 | disposition home or self-care (01) ==
LOC: HO.US 14:36
PROVIDERS: PCP Registered Nurse; Visit Provider Advanced Practice Midwife
DX: N92.0 Excessive and frequent menstruation with regular cycle (principal)
CPT/HCPCS: 76830; 76856

== ENCOUNTER 2024-01-09 17:25 | Outpatient (REF) | payer MEDICARE, MEDICAID, SELFPAY ==
[2024-01-10 09:00] LABS: CT PCR NOT DETECTED (Not Detect.); NG PCR NOT DETECTED (Not Detect.)
== END 2024-01-09 17:26 | disposition home or self-care (01) ==
LOC: HO.HHCLNP 17:25
PROVIDERS: Visit Provider Advanced Practice Midwife
DX: Z20.2 Contact with and (suspected) exposure to infections with a predominantly sexual mode of transmission (principal)
CPT/HCPCS: 0353U

== ENCOUNTER 2024-01-15 19:54 | Emergency (ER) | payer MEDICARE, MEDICAID, SELFPAY ==
[2024-01-15 19:55] VITALS: BP 150/110; PULSE 70; RESP 18; TEMP 36.8; O2SAT 97; BMI 53.1
== END 2024-01-15 20:57 | disposition left against medical advice (07) ==
PROVIDERS: Emergency Provider Emergency Medicine; PCP Registered Nurse
DX: K08.89 Other specified disorders of teeth and supporting structures (principal)
CPT/HCPCS: 99281

== ENCOUNTER 2024-02-06 12:03 | Outpatient (AMB) | payer MEDICARE, MEDICAID, SELFPAY ==
[2024-02-06 12:05] VITALS: BP 138/84; BMI 52.9
--- NOTE | 2024-02-06 12:05 | A.OFFVIS_ITS ---
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 No history of abnormal Pap smears in the past Last mammogram was in 04/13 BI-RADS 1 Last co testing 07/14 Pap smear was negative, HPV E6/E7 positive Last ultrasound in 09/14 showed the following: 'The uterus measures 13.4 x 3.5 x 6.0 cm. No discrete fibroids. Endometrial thickness is 0.7 cm. Visualization of uterus and endometrium is limited on transvaginal ultrasound images due to length of uterus and bowel gas. Left ovary measures 3.0 x 2.5 x 2.2 cm, volume 8.6 mm and is unremarkable. Right ovary measures 3.7 x 1.9 x 1.9 cm, volume 7.0 mL and is grossly unremarkable. Possible small amount of free fluid adjacent to the right ovary. Limited visualization of the bilateral ovaries due to bowel gas. The bilateral ovaries are grossly unremarkable. COUNTS INCLUDE 234 BEDS AT THE [facility] Medical History (Updated 02/06/24 @ 12:28 by Alin Healy MD) HTN (hypertension) Obese Surgical History (Updated 02/06/24 @ 12:12 by Rama Mcguire CMA) Hx of tubal ligation Hx of lithotripsy Hx of section History of carpal tunnel surgery Family History Son History of open heart surgery Social History Alcohol intake: never Patient Tobacco Use Status: Former Tobacco user Female Reproductive History Menstrual Total pregnancies: 3 Full term: 3 Number of Living Children: 3 Review of Systems Const All systems reviewed & are unremarkable except as noted in HPI and below Card Reports as per HPI Resp Reports as per HPI GI Reports as per HPI and Reports no additional complaints Reports as per HPI Physical Exam Vital Signs: Last Vital Signs BP 138/84 02/06/24 12:05 BMI result Body Mass Index 52.9 Const General: cooperative, healthy appearing and comfortable Chest Chest palpation & inspection: normal inspection of the chest and normal palpation of entire chest wall Breast/axilla inspection: normal inspection of the breasts and normal inspection of the axillae Breast/axilla palpation: normal palpation of the breasts, normal palpation of the axillae and no axillary lymphadenopathy Resp Effort & Inspection: normal respiratory effort Auscultation: clear to auscultation bilaterally Percussion: percussion normal Cardio Palpation: normal PMI Rate: regular rate Rhythm: regular rhythm Heart sounds: no murmurs and no rubs Peripheral pulses: Peripheral pulses 2+ throughout GI Inspection: Yes normal to inspection Palpation (GI): Soft to palpation, nontender, no guarding, not rigid and No hepatosplenomegaly present Percussion: Yes normal to percussion Auscultation: normal bowel sounds Rectal Exam - Female: deferred General: Yes bladder normal to palpation External Female Exam: No lesion Speculum Exam - Vagina: normal appearance of the vagina, normal palpation, n ormal vaginal discharge and not erythematous Speculum Exam - Cervix: normal appearance of the cervix and normal palpation Bimanual exam- vagina & uterus: normal bimanual exam, normal palpation, uterine size normal, bladder normal to palpation, consistency normal and normal palpation Bimanual Exam- Adnexa, other: normal adnexae, no masses and no tenderness Results AMB Test Urine AMB Test Urine Negative Last Edit by Rama Mcguire CMA on 12:22 Assessment & Plan Assessment & Plan (1) Abnormal uterine bleeding (AUB): Comment: With hair growth Code(s): N93.9 - Abnormal uterine and vaginal bleeding, unspecified Category: Medical Plan: GC and chlamydia taken CBC, TSH, prolactin, HCG, testosterone total and free, 17 hydroxyprogesterone and pelvic ultrasound ordered. Discussed with the patient the different causes of abnormal bleeding including thyroid disorders, uterine and ovarian pathology, endometrial hyperplasia, carcinoma and other potential causes. Discussed with the patient the work up including CBC (to r/o anemia), TSH, prolactin, pelvic Ultrasound, endometrial biopsy to r/o endometrial pathology. All questions answered and the patient verbalized understanding. Instructed the patient to schedule an appointment for an endometrial biopsy in 2 weeks. (2) HPV (human papilloma virus) infection: Comment: Negative Pap Code(s): B97.7 - Papillomavirus as the cause of diseases classified elsewhere Category: Medical Plan: Since the patient does not have a previous history of abnormal Pap smear, recommended repeat co testing in 07/15. Instructions given the patient to schedule her next co testing appointment. Orders: Orders Complete Blood Count no Diff Today N93.9 - Abnormal uterine and vaginal bleeding, unspecified TSH reflex Free T4 Today N93.9 - Abnormal uterine and vaginal bleeding, unspecified Testosterone, Free/Total Today L68.0 - Hirsutism AMB HCG Urine Test Today Z32.02 - Encounter for test, result negative Prolactin Today N93.9 - Abnormal uterine and vaginal bleeding, unspecified HCG Quantitative Today N93.9 - Abnormal uterine and vaginal bleeding, unspecified 17 Hydroxyprogesterone Today L68.0 - Hirsutism Coding Level of Care Code New Pt Level 3 (41324) Diagnoses Abnormal uterine bleeding (AUB) N93.9 HPV (human papilloma virus) infection B97.7
== END 2024-02-06 12:38 | disposition home or self-care (01) ==
PROVIDERS: PCP Registered Nurse; Visit Provider Obstetrics & Gynecology
DX: N93.9 Abnormal uterine and vaginal bleeding, unspecified (principal); B97.7 Papillomavirus as the cause of diseases classified elsewhere; Z32.02 Encounter for pregnancy test, result negative
CPT/HCPCS: 99203

== ENCOUNTER 2024-02-06 12:03 | Outpatient (REF) | payer MEDICARE, MEDICAID, SELFPAY | END 2024-02-06 12:04 | disposition home or self-care (01) | LOC: HO.LNP 12:03 | PROVIDERS: PCP Registered Nurse; Visit Provider Obstetrics & Gynecology | DX: Z13.89 Encounter for screening for other disorder (principal) | CPT/HCPCS: 81025; 99202 ==

== ENCOUNTER 2024-02-06 12:46 | Outpatient (REF) | payer MEDICARE, MEDICAID, SELFPAY ==
[2024-02-06 13:45] LABS: Hematocrit 39.5 % (37.0-47.0); Hemoglobin 12.6 g/dl (12.0-16.0); Mean Corpuscular HGB Conc 31.9 g/dl (31.0-35.0); Mean Corpuscular Hemoglobin 27.5 pg (27.0-33.0); Mean Corpuscular Volume 86.1 fL (80.0-98.0); Mean Platelet Volume 10.2 fL (9.4-12.3); Platelet Count 452 X10*3/uL (160-400); Red Blood Count 4.59 X10*6/uL (4.20-5.50); Red Cell Distribution Width 13.2 % (11.0-16.0); White Blood Count 8.5 X10*3/uL (4.8-10.8)
[2024-02-06 14:41] LABS: HCG Quantitative < 2 mIU/mL; TSH reflex Free T4 1.29 uIU/mL (0.32-4.0)
[2024-02-06 16:53] LABS: CT PCR NOT DETECTED (Not Detect.); NG PCR NOT DETECTED (Not Detect.)
[2024-02-07 12:13] LABS: Prolactin 8.8 ng/mL
[2024-02-12 16:04] LABS: Testosterone, Free 4.7 pg/mL (0.1-6.4); Testosterone, Total 25 ng/dL (2-45)
== END 2024-02-06 12:47 | disposition home or self-care (01) ==
LOC: HO.LAB 12:46
PROVIDERS: PCP Registered Nurse; Visit Provider Obstetrics & Gynecology
DX: N93.9 Abnormal uterine and vaginal bleeding, unspecified (principal); L68.0 Hirsutism; Z32.02 Encounter for pregnancy test, result negative
CPT/HCPCS: 0353U; 81025; 83498; 84146; 84402; 84403; 84443; 84702; 85027; 99202

== ENCOUNTER 2024-03-12 07:58 | Outpatient (AMB) | payer MEDICARE, MEDICAID, SELFPAY ==
--- NOTE | 2024-03-12 08:30 | MHC.OFFVIS ---
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: No Information Interpreted: non-clinical & clinical Medical Laboratory Scientist: Medical Laboratory Scientist Present (Rama GALVAN) Accompanied by: Self / Same As Patient Allergies No Known Allergies Allergy (Verified 03/12/24 08:40) Is last menstrual period known: Yes Last menstrual period: 03/08/24 Post menopausal: No Patient : No Do you need a note to return to daycare/school/sports/work: Yes (for surgery on tuesday) HPI Comments Details: Presenting for endometrial biopsy [facility] Medical History HTN (hypertension) Obese Surgical History Hx of tubal ligation Hx of lithotripsy Hx of section History of carpal tunnel surgery Family History Son History of open heart surgery Social History Alcohol intake: never Patient Tobacco Use Status: Former Tobacco user Female Reproductive History Menstrual Date of last menstrual period: 03/08/24 Total pregnancies: 2 Full term: 2 Review of Systems Card Reports as per HPI and Reports no additional complaints Resp Reports as per HPI and Reports no additional complaints GI Reports as per HPI and Reports no additional complaints Reports as per HPI Physical Exam Const General: cooperative, healthy appearing and comfortable Resp Effort & Inspection: normal respiratory effort Auscultation: clear to auscultation bilaterally Percussion: percussion normal Cardio Palpation: normal PMI Rate: regular rate Rhythm: regular rhythm Heart sounds: no murmurs and no rubs Peripheral pulses: Peripheral pulses 2+ throughout GI Inspection: Yes normal to inspection Palpation (GI): Soft to palpation, nontender, no guarding, not rigid and No hepatosplenomegaly present Percussion: Yes normal to percussion Auscultation: normal bowel sounds Rectal Exam - Female: deferred Assessment & Plan Assessment & Plan (1) Abnormal uterine bleeding (AUB): Comment: With hair growth Code(s): N93.9 - Abnormal uterine and vaginal bleeding, unspecified Category: Medical Plan: EMB attempted but aborted was of technical difficulties in identifying the cervix with the longest and largest speculum and the patient's inability to tolerate the procedure. Recommended next step hysteroscopy/D&C possible polypectomy under anesthesia. Discussed with the patient the procedure , all benefits and risks including but not limited to inability to complete the procedure , insufficient endometrial tissue for a complete evaluation of the endometrial cavity , bleeding, infection, possible need for blood transfusion with all its risk ( HIV,syphilis, Hepatitis, anaphylaxis shock, others..), injury to bladder, rectum, possible need for laparoscopy/laparotomy or hysterectomy. The patient verbalized understanding and signed the consent. Instructions given the patient to stay NPO after midnight the day prior to the procedure and to take only the specific medication (s) discussed the morning of the surgical procedure and to schedule a 2 week postoperative appointment Coding Level of Care Code Est Pt Level 3 (67764) Diagnoses Abnormal uterine bleeding (AUB) N93.9
[2024-03-12 08:40] VITALS: BMI 52.9
== END 2024-03-12 09:54 | disposition home or self-care (01) ==
PROVIDERS: PCP Registered Nurse; Visit Provider Obstetrics & Gynecology
DX: Z32.02 Encounter for pregnancy test, result negative (principal); N93.9 Abnormal uterine and vaginal bleeding, unspecified
CPT/HCPCS: 99213

== ENCOUNTER 2024-03-12 07:58 | Outpatient (REF) | payer MEDICARE, MEDICAID, SELFPAY ==
[2024-03-12 18:01] LABS: CT PCR NOT DETECTED (Not Detect.); NG PCR NOT DETECTED (Not Detect.)
== END 2024-03-12 07:59 | disposition home or self-care (01) ==
LOC: HO.LNP 07:58
PROVIDERS: PCP Registered Nurse; Visit Provider Obstetrics & Gynecology
DX: N93.9 Abnormal uterine and vaginal bleeding, unspecified (principal)
CPT/HCPCS: 81025; 87491; 87591; 99212

== ENCOUNTER 2024-03-16 10:11 | Day surgery (SDC) | payer MEDICARE, MEDICAID, SELFPAY ==
[2024-03-16] VITALS (7 sets, daily range): BP systolic 128–145; BP diastolic 83–99; PULSE 66–97; RESP 16–17; TEMP 36.1–36.9; O2SAT 96–99; BMI 50.3
[2024-03-16 10:59] LABS: UPreg QC Valid YES; Urine Pregnancy NEGATIVE (NEGATIVE)
[2024-03-16] MEDS: Lactated Ringers 1,000 ML 100 ML IVCONT (11:25)
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
--- NOTE | 2024-03-16 11:31 | MHC.SHP ---
Pre-Procedural Eval Section A - 24 Hr Update-Section A only Date of Service: 03/16/24 Section B - Complete if H&P > 30 days Chief Complaint: Abnormal uterine and vaginal bleeding, Allergies: Allergies Allergy/AdvReac Type Severity Reaction Status Date / Time No Known Allergies Allergy Verified 03/16/24 10:54 Plan I have reviewed the history and physical and performed a pertinent physical examination on my patient. No changes have occurred unless specified. Time Spent With Patient Time: Total time managing care of this patient today ____ minutes.
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
--- NOTE | 2024-03-16 13:58 | P.BOP_ITS ---
Brief Operative Note Date of Service: 03/16/24 Pre-op diagnosis: Abnormal uterine bleeding Post-op diagnosis: same (Normal endometrial cavity) Procedure: Hysteroscopy D&C Surgeon: Alin Healy MD Anesthesia: GLMA Was an Wind Instrument Repairer used for this Procedure?: No Estimated blood loss (mL): 0 Pathology: other (Endometrial Scrapping) Condition: stable Disposition: PACU
--- NOTE | 2024-03-16 13:59 | W.PM.OPN ---
Operative Note Operative Note Date of Service: 03/16/24 Narrative: Preop Diagnosis: Abnormal uterine bleeding Operation: Diagnostic Hysteroscopy, Dilataion & Curettage Post Op Diagnosis: Normal endometrial and endocervical cavity, no evidence of pathology QBL: Minimal Anesthesia: GLMA Surgeon: Alin Healy MD Atmospheric Drier Tender: None Complication: None Pathology: Endometrial Scrapings Procedure: The patient was put in the dorsal lithotomy position, scrubbed, and draped in the usual manner. A sterile speculum was inserted in the patient's vagina. The anterior lip of the cervix was grasped with a single tooth tenaculum. The cervix was dilated up to 5 mm, then the scope was inserted in the patient's uterus. Inspection revealed normal endocervical & endometrial cavity with no evidence of pathology. The scope was taken out of the uterine cavity , then sharp curetting was carried on with no complications. At the end of the procedure, all instruments were taken out of the patient uterine and vaginal cavity. The single tooth tenaculum was removed and homeostasis was assured using pressure. The patient tolerated the procedure well and was transferred to the PACU in a stable condition.
[2024-03-16] MEDS: Acetaminophen 325 MG TABLET 650 MG PO (14:19)
[2024-03-16] MEDS: oxyCODONE HCl Immed Release 5 MG TABLET PO (14:19)
== END 2024-03-16 15:10 | disposition home or self-care (01) ==
PROVIDERS: PCP Registered Nurse; Visit Provider Obstetrics & Gynecology
PROC: 0UDB8ZZ Extraction of Endometrium, Via Natural or Artificial Opening Endoscopic (ICD-10-PCS; CPT 58558; principal; 2024-03-16 13:30)
DX: N93.9 Abnormal uterine and vaginal bleeding, unspecified (principal); L29.9 Pruritus, unspecified; E28.2 Polycystic ovarian syndrome; N80.9 Endometriosis, unspecified; Z98.51 Tubal ligation status; I10 Essential (primary) hypertension; E66.9 Obesity, unspecified; Z68.43 Body mass index [BMI] 50.0-59.9, adult; Z79.899 Other long term (current) drug therapy; Z98.890 Other specified postprocedural states; Z87.891 Personal history of nicotine dependence
CPT/HCPCS: 58558; 81025; 88305; J1100; J1885; J2250; J2405; J2704; J3010

== ENCOUNTER → 2024-03-16 10:11 | Outpatient (BNV) | payer MEDICARE, MEDICAID, SELFPAY | PROVIDERS: PCP Registered Nurse; Visit Provider Obstetrics & Gynecology | DX: N93.9 Abnormal uterine and vaginal bleeding, unspecified (principal) | CPT/HCPCS: 58558 ==

== ENCOUNTER 2024-04-02 09:50 | Outpatient (AMB) | payer MEDICARE, MEDICAID, SELFPAY ==
--- NOTE | 2024-04-02 09:51 | A.OFFVIS_ITS ---
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 The pathology showed the following: Endometrium, curettage: - Few superficial fragments of proliferative endometrium; negative for atypia or hyperplasia. - Fragments of mildly inflamed endocervical and squamous epithelium; fibroinflammatory material The following workup was done.: H&H= 12.6/39.5 TSH, prolactin, hCG, GC and chlamydia were negative. Testosterone free and total with 17 hydroxyprogesterone within normal Co testing was done in 07/14 showed negative Pap/HPV E6 E7 positive HPV 16/18/45 negative. Mammogram was BI-RADS 1 Pelvic ultrasound showed the following: The uterus measures 13.4 x 3.5 x 6.0 cm. No discrete fibroids. Endometrial thickness is 0.7 cm. Visualization of uterus and endometrium is limited on transvaginal ultrasound images due to length of uterus and bowel gas. Left ovary measures 3.0 x 2.5 x 2.2 cm, volume 8.6 mm and is unremarkable. Right ovary measures 3.7 x 1.9 x 1.9 cm, volume 7.0 mL and is grossly unremarkable. Possible small amount of free fluid adjacent to the right ovary. Limited visualization of the bilateral ovaries due to bowel gas. The bilateral ovaries are grossly unremarkable. [facility] Medical History Anxiety Endometriosis Migraines PCOS (polycystic ovarian syndrome) Gestational diabetes HTN (hypertension) Obese Surgical History Hx of tubal ligation Hx of lithotripsy Hx of section History of carpal tunnel surgery Family History Son History of open heart surgery Social History Alcohol intake: never Patient Tobacco Use Status: Former Tobacco user Review of Systems Const All systems reviewed & are unremarkable except as noted in HPI and below Reports as per HPI and Reports no additional complaints GI Reports no additional complaints Reports no additional complaints Physical Exam Vital Signs: BMI result Body Mass Index 52.9 Assessment & Plan Assessment & Plan (1) Abnormal uterine bleeding (AUB): Comment: With hair growth Code(s): N93.9 - Abnormal uterine and vaginal bleeding, unspecified Category: Medical Plan: Discussed with the patient the results of the work up done and options of treatment including Lysteda, control pills, Mirena IUD, endometrial ablation and hysterectomy. All pros, cons, risks and benefits if each option was discussed with the patient and the patient decided to go ahead with Mirena IUD so a more detailed discussion about it was conducted including mechanism of action, risks (uterine perforation, infection, injury to bladder, bowel, displacement, and others) benefits (hypo menorrhea, amenorrhea, ...). GC/CT were taken and the patient was instructed to schedule Mirena IUD insertion on day 1-5 of next cycle . All questions answered, the patient verbalized understanding (2) HPV (human papilloma virus) infection: Comment: Negative Pap Code(s): B97.7 - Papillomavirus as the cause of diseases classified elsewhere Category: Medical Plan: Instructions given the patient to schedule co testing appointment 07/15 Orders: Orders MM tomosynthesis screening BI Today Z12.31 - Encounter for screening mammogram for malignant neoplasm of breast Coding Level of Care Code Est Pt Level 3 (02935) Diagnoses Abnormal uterine bleeding (AUB) N93.9 HPV (human papilloma virus) infection B97.7
[2024-04-02 09:52] VITALS: BP 146/92; BMI 52.9
== END 2024-04-02 10:57 | disposition home or self-care (01) ==
LOC: HO.HWS 09:50
PROVIDERS: PCP Registered Nurse; Visit Provider Obstetrics & Gynecology
DX: N93.9 Abnormal uterine and vaginal bleeding, unspecified (principal); B97.7 Papillomavirus as the cause of diseases classified elsewhere
CPT/HCPCS: 99213

== ENCOUNTER → 2024-04-02 09:50 | Outpatient (BNVA) | payer MEDICARE, MEDICAID, SELFPAY | PROVIDERS: PCP Registered Nurse; Visit Provider Obstetrics & Gynecology | DX: N93.9 Abnormal uterine and vaginal bleeding, unspecified (principal); B97.7 Papillomavirus as the cause of diseases classified elsewhere; Z98.51 Tubal ligation status | CPT/HCPCS: 99212 ==

== ENCOUNTER 2024-06-01 10:56 | Outpatient (REF) | payer MEDICARE, MEDICAID, SELFPAY ==
[2024-06-01 14:11] LABS: MANUAL DIFF FLAG NO
[2024-06-01 14:16] LABS: Basophils Absolute Auto 0.1 X10*3/uL (0.0-0.2); Eosinophils Absolute Auto 0.3 X10*3/uL (0.0-0.4); Eosinophils Percent Auto 2.9 % (0-4); Hematocrit 37.7 % (37.0-47.0); Hemoglobin 12.2 g/dl (12.0-16.0); Imm Gran Abs Auto 0.04 X10*3/uL (0.00-0.03); Imm Gran Pct Auto 0.4 % (0.0-0.4); Lymphocytes Absolute Auto 2.9 X10*3/uL (1.2-4.9); Lymphocytes Percent Auto 31.7 % (20-40); Mean Corpuscular HGB Conc 32.4 g/dl (31.0-35.0); Mean Corpuscular Hemoglobin 27.4 pg (27.0-33.0); Mean Corpuscular Volume 84.7 fL (80.0-98.0); Mean Platelet Volume 10.4 fL (9.4-12.3); Monocytes Absolute Auto 0.6 X10*3/uL (0.1-1.2); Monocytes Percent Auto 6.1 % (2-11); Neutrophils Absolute Auto 5.3 x10*3/uL (2.0-8.3); Neutrophils Percent Auto 57.9 % (45-73); Platelet Count 458 X10*3/uL (160-400); Red Blood Count 4.45 X10*6/uL (4.20-5.50); Red Cell Distribution Width 13.6 % (11.0-16.0); White Blood Count 9.1 X10*3/uL (4.8-10.8)
[2024-06-01 14:37] LABS: Estimated Average Glucose 140 mg/dL; Hemoglobin A1C 136.4694 umol/L; Hemoglobin A1c % 6.5 % (<6.0); Total Hemoglobin (HGBA1C) 2898.2731 umol/L
[2024-06-01 14:45] LABS: Alanine Aminotransferase 72 U/L (0-31); Albumin Level 4.1 g/dL (3.5-5.0); Alkaline Phosphatase 73 U/L (39-117); Anion Gap 11 (12-20); Aspartate Amino Transferase 64 U/L (5-31); Bilirubin Total 0.7 mg/dL (0.0-1.0); Blood Urea Nitrogen 9 mg/dL (9-16); Calcium 9.4 mg/dL (8.4-10.2); Carbon Dioxide 30 mmol/L (22-29); Chloride 102 mmol/L (96-108); Cholesterol 142 mg/dL (<200); Estimated Glomerular Filt Rate > 60; Glucose Random 127 mg/dL (60-115); HDL Cholesterol 34 mg/dL (>40); LDL Cholesterol Calculated 81 mg/dL (<100); Potassium 3.7 mmol/L (3.3-5.1); Sodium 139 mmol/L (135-145); Total Protein 8.2 g/dL (6.5-8.0); Triglycerides 139 mg/dL (<150)
[2024-06-01 15:02] LABS: TSH reflex Free T4 1.28 uIU/mL (0.32-4.0)
[2024-06-01 18:36] LABS: CT PCR NOT DETECTED (Not Detect.); NG PCR NOT DETECTED (Not Detect.)
[2024-06-02 04:20] LABS: HIV AB/AG Nonreactive (Nonreactive); HIV Num 1 0.04 S/CO (0.00-0.99)
[2024-06-04 13:38] LABS: HCV Log PCR <1.18 NOT DETECTED Log IU/mL (NOT DETECTED); HepC Viral Load <15 NOT DETECTED IU/mL (NOT DETECTED)
[2024-06-05 17:08] LABS: RPR Rapid Plasma Reagin NON-REACTIVE (NON-REACTIVE)
== END 2024-06-01 10:57 | disposition home or self-care (01) ==
LOC: HO.CHCLDS 10:56
PROVIDERS: Visit Provider Registered Nurse
DX: Z00.00 Encounter for general adult medical examination without abnormal findings (principal); Z11.3 Encounter for screening for infections with a predominantly sexual mode of transmission; Z13.1 Encounter for screening for diabetes mellitus
CPT/HCPCS: 36415; 80053; 80061; 83036; 84443; 85025; 86592; 87389; 87491; 87522; 87591

== ENCOUNTER 2024-06-05 11:28 | Outpatient (REF) | payer MEDICARE, MEDICAID, SELFPAY ==
--- NOTE | ~2024-06-05 | XR_ITS ---
EXAMINATION: XR LUMBOSACRAL SPINE CLINICAL INFORMATION: Low back pain, shooting x 3 months. COMPARISON: None available. TECHNIQUE: Three views of the lumbosacral spine. FINDINGS: There is normal bony mineralization. There is no fracture, compression deformity, subluxation, or focal bony abnormality. Normal lordosis. No scoliosis. Alignment is anatomic. Mild lumbar degenerative disc changes are present, moderate in severity at L5-S1 with ventral disc osteophyte production. There is normal facet alignment. Mild degenerative facet changes L4-S1. Soft tissues demonstrate cholecystectomy clips. No additional soft tissue finding. XR/XR lumbar spine 2-3V IMPRESSION: 1. No acute bony findings. 2. Mild degenerative disc and facet disease, with moderate changes at L5-S1. Electronically signed by: Ant Diaz MD 07/24/2024 12:34 PM [facility]
== END 2024-06-05 11:29 | disposition home or self-care (01) ==
LOC: HO.XRAY 11:28
PROVIDERS: PCP Registered Nurse; Visit Provider Registered Nurse
DX: M54.50 Low back pain, unspecified (principal)
CPT/HCPCS: 72100

== ENCOUNTER → 2024-06-05 11:35 | Outpatient (BNV) | payer MEDICARE, MEDICAID, SELFPAY | PROVIDERS: PCP Registered Nurse; Visit Provider Radiology Diagnostic Radiology | DX: M54.50 Low back pain, unspecified (principal) | CPT/HCPCS: 72100 ==

== ENCOUNTER 2024-07-04 12:49 | Outpatient (REF) | payer MEDICARE, MEDICAID, SELFPAY ==
[2024-07-04 14:37] LABS: Estimated Average Glucose 143 mg/dL; Hemoglobin A1C 157.9968 umol/L; Hemoglobin A1c % 6.6 % (<6.0); Total Hemoglobin (HGBA1C) 3243.0191 umol/L
== END 2024-07-04 12:50 | disposition home or self-care (01) ==
LOC: HO.CHCLDS 12:49
PROVIDERS: Visit Provider Registered Nurse
DX: R73.09 Other abnormal glucose (principal)
CPT/HCPCS: 36415; 83036

== ENCOUNTER 2024-07-09 10:34 | Outpatient (REF) | payer MEDICARE, MEDICAID, SELFPAY ==
[2024-07-10 04:10] LABS: HBS Num1 120.65 mIU/mL (0-7.99); HBc Num1 0.17 S/CO (0.00-0.79); HBsAGNum1 0.44 S/CO (0.00-0.99); Hepatitis B Core Antibody Nonreactive (Nonreactive); Hepatitis B Surface Antigen Negative (Negative); ~Hepatitis B Surface Antibody REACTIVE (Nonreactive)
== END 2024-07-09 10:35 | disposition home or self-care (01) ==
LOC: HO.CHCLDS 10:34
PROVIDERS: Visit Provider Registered Nurse
DX: R74.8 Abnormal levels of other serum enzymes (principal); Z11.59 Encounter for screening for other viral diseases
CPT/HCPCS: 36415; 86704; 86706; 87340

== ENCOUNTER → 2024-07-18 19:00 | Outpatient (BNV) | payer MEDICARE, MEDICAID, SELFPAY | PROVIDERS: PCP Registered Nurse; Visit Provider Psychiatry & Neurology Neurology | DX: G47.33 Obstructive sleep apnea (adult) (pediatric) (principal) | CPT/HCPCS: 95806 ==

== ENCOUNTER → 2024-07-18 19:30 | Outpatient (REF) | payer MEDICARE, MEDICAID, SELFPAY | LOC: HO.SL 19:30 | PROVIDERS: PCP Registered Nurse; Visit Provider Registered Nurse | DX: R06.83 Snoring (principal); Z68.43 Body mass index [BMI] 50.0-59.9, adult; R40.0 Somnolence | CPT/HCPCS: 95806 ==

== ENCOUNTER 2024-07-25 14:11 | Outpatient (AMB) | payer MEDICARE, MEDICAID, SELFPAY ==
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
[2024-07-25 14:20] VITALS: BP 162/91; PULSE 79; O2SAT 97; BMI 55.2
== END 2024-07-25 14:41 | disposition home or self-care (01) ==
PROVIDERS: PCP Registered Nurse; Visit Provider Registered Nurse Emergency
DX: M54.9 Dorsalgia, unspecified (principal); G89.29 Other chronic pain; S39.012A Strain of muscle, fascia and tendon of lower back, initial encounter
CPT/HCPCS: 99204; G2211

== ENCOUNTER → 2024-07-25 14:11 | Outpatient (BNVA) | payer MEDICARE, MEDICAID, SELFPAY | PROVIDERS: PCP Registered Nurse; Visit Provider Registered Nurse Emergency | DX: M54.9 Dorsalgia, unspecified (principal); G89.4 Chronic pain syndrome; S39.012A Strain of muscle, fascia and tendon of lower back, initial encounter; V89.0XXA Person injured in unspecified motor-vehicle accident, nontraffic, initial encounter; Y93.9 Activity, unspecified; Y92.410 Unspecified street and highway as the place of occurrence of the external cause; Y99.9 Unspecified external cause status | CPT/HCPCS: 99202 ==

== ENCOUNTER 2024-08-06 09:41 | Outpatient (REF) | payer MEDICARE, MEDICAID, SELFPAY | END 2024-08-06 09:42 | disposition home or self-care (01) | LOC: HO.US 09:41 | PROVIDERS: PCP Registered Nurse; Visit Provider Registered Nurse | DX: R74.8 Abnormal levels of other serum enzymes (principal) | CPT/HCPCS: 76700; 76981 ==

== ENCOUNTER → 2024-08-06 09:43 | Outpatient (BNV) | payer MEDICARE, MEDICAID, SELFPAY | PROVIDERS: PCP Registered Nurse; Visit Provider Radiology Diagnostic Radiology | DX: R74.01 Elevation of levels of liver transaminase levels (principal); K76.0 Fatty (change of) liver, not elsewhere classified; R16.0 Hepatomegaly, not elsewhere classified; N13.30 Unspecified hydronephrosis | CPT/HCPCS: 76700; 76981 ==

== ENCOUNTER 2024-08-08 13:23 | Outpatient (AMB) | payer MEDICARE, MEDICAID, SELFPAY ==
--- NOTE | 2024-08-08 13:39 | HO.NEPHOV ---
Vital Signs 08/08/24 13:43 Height 5 ft 1 in Weight 289 lb 8 oz BMI 54.7 BP 114/80 Blood Pressure Location Lt brachial Position Sitting Pulse 84 Pulse Source Pulse Oximeter Pulse Oximetry (%) 98 Oxygen Delivery Method Room Air Intake Visit Reasons: History of Kidney Stones/ Pt missed 06/25 appt Program Eligibility Specialist Required: No Accompanied by: Self / Same As Patient Allergies No Known Allergies Allergy (Verified 08/08/24 13:43) HPI Comments Details: I had the pleasure of seeing Eloise for renal calculi. She had her first episode of renal calculus in her 20's. She has not had any relapse of the stone until recently. Now she continues to have low back pain as well as flank pain. When she had the flank pain in Sep, she underwent a CT scan which showed 4 mm obstructing stone at the right proximal ureter with resulting moderate right hydronephrosis. Her brother and sisters have renal calculi. She does not have any hematuria, fever, nausea or vomiting. Her renal functions have been normal. She is on Topamax. She has PCOS and has been on metformin. Her blood sugars have gone up and has been started on Trulicity. She has intermittent flank pain. She is concerned about an obstructed renal stones. Her blood pressure has been labile and has not been initiated on medications but she is working on weight loss to help with her BS and BP. [facility] Medical History (Updated 08/08/24 @ 14:01 by Nile Parkinson MD) History of kidney stones Anxiety Endometriosis Migraines PCOS (polycystic ovarian syndrome) Gestational diabetes HTN (hypertension) Obese Surgical History Hx of tubal ligation Hx of lithotripsy Hx of section History of carpal tunnel surgery Family History Son History of open heart surgery Social History Alcohol intake: never Patient Tobacco Use Status: Former Tobacco user Review of Systems Const All systems reviewed & are unremarkable except as noted in HPI and below Physical Exam Vital Signs: Last Vital Signs Pulse 84 08/08/24 13:43 BP 114/80 08/08/24 13:43 Pulse Ox 98 08/08/24 13:43 Oxygen Delivery Method Room Air 08/08/24 13:43 BMI result Body Mass Index 54.7 Const General: comfortable and no acute distress Orientation/consciousness: patient oriented x3 HEENT Head: Yes normocephalic Mouth: Normal oral and palatal mucosa present Eyes EOM: EOMs intact bilaterally Neck Neck: Yes supple Resp Auscultation: clear to auscultation bilaterally Cardio Jugular venous distension: no JVD Rate: regular rate GI Palpation (GI): Soft to palpation Auscultation: normal bowel sounds General: Yes no CVA tenderness Back/Spine/Pelvis Back: no CVA tenderness Skin General skin exam: no rashes or lesions noted Neuro General: patient oriented x3 and moves all extremities Extrem General: Yes no pedal edema Results Reviewed Nephrology Results: Renal US 08/08/24 Assessment & Plan Assessment & Plan (1) Renal calculus: Code(s): N20.0 - Calculus of kidney Category: Medical Plan I have arranged a stat renal USS to R/O obstructed renal calculus. She needs to maintain good hydration, cut back sodium in diet( which will help with her BP as well), cut back meat and increase fruits and vegetables. She likely will be a candidate for HCTZ and or K citrate. If possible, she should come off Topmax. I have also ordered 24 hour urine collection for stone screen. Further management is pending evolving data. All questions answered Orders: Orders Calcium 3 Weeks N20.0 - Calculus of kidney Parathyroid Hormone Intact 3 Weeks N20.0 - Calculus of kidney US renal BI 08/08/24 N20.0 - Calculus of kidney Uric Acid 3 Weeks N20.0 - Calculus of kidney Sodium, 24Hr Urine Group 08/08/24 N20.0 - Calculus of kidney Calcium, 24 Hr Ur 08/08/24 N20.0 - Calculus of kidney Oxalate, 24 Hr 08/08/24 N20.0 - Calculus of kidney Uric Acid, 24Hr Urine Group 08/08/24 N20.0 - Calculus of kidney Citric Acid 24hr Urine 08/08/24 N20.0 - Calculus of kidney Coding Level of Care Code New Pt Level 4 (03621) Diagnoses Renal calculus N20.0
[2024-08-08 13:43] VITALS: BP 114/80; PULSE 84; O2SAT 98; BMI 54.7
== END 2024-08-08 14:13 | disposition home or self-care (01) ==
PROVIDERS: PCP Registered Nurse; Referring Provider Registered Nurse; Visit Provider Internal Medicine Nephrology
DX: N20.0 Calculus of kidney (principal)
CPT/HCPCS: 99204

== ENCOUNTER 2024-08-08 14:25 | Outpatient (REF) | payer MEDICARE, MEDICAID, SELFPAY ==
--- NOTE | ~2024-08-08 | US_ITS ---
EXAMINATION: US RETROPERITONEAL LIMITED (RENAL ONLY) CLINICAL INFORMATION: Recent right obstructing stone with ongoing flank pain. COMPARISON: Ultrasound abdomen 08/06/2024 CT abdomen pelvis 03/04/2022 TECHNIQUE: Ultrasound of the kidneys was performed FINDINGS: RIGHT KIDNEY: 12.4 x 5.1 x 7.5 cm (SAG x AP x TRV). The kidney is normal in size, contour, and echogenicity. Renal cortical thickness is normal. No calculi or focal parenchymal lesions. There is mild fullness of the renal pelvis similar to the ultrasound 2 days ago but no gross hydronephrosis/caliectasis. LEFT KIDNEY: 11.2 x 5.6 x 4.5 cm (SAG x AP x TRV). The kidney is normal in size, contour, and echogenicity. Renal cortical thickness is normal. No calculi or focal parenchymal lesions. No hydronephrosis. US/US renal BI IMPRESSION: Mild fullness of the right renal pelvis without gross hydronephrosis. Electronically signed by: Tyrone Sigala MD 08/09/2024 11:57 PM EST
== END 2024-08-08 14:26 | disposition home or self-care (01) ==
LOC: HO.US 14:25
PROVIDERS: PCP Physician Assistant; Visit Provider Internal Medicine Nephrology
DX: N20.0 Calculus of kidney (principal)
CPT/HCPCS: 76775

== ENCOUNTER 2024-08-29 11:28 | Outpatient (REF) | payer MEDICARE, MEDICAID, SELFPAY ==
[2024-08-29 13:03] LABS: Lipase 26 U/L (8-78); Uric Acid 6.5 mg/dL (2.4-5.7)
[2024-08-29 13:09] LABS: Parathyroid Hormone Intact 51.7 pg/mL (8.7-77.1)
[2024-08-29 13:19] LABS: Amylase 38 U/L (28-100)
[2024-08-29 13:33] LABS: Creatinine, mg/dL 180.01
[2024-08-29 13:41] LABS: Creatinine, mg/dL 179.72; Uric Acid, mg/dL 71.8 mg/dL
[2024-08-29 13:52] LABS: Creatinine, 24Hr Urine 1.4 G/Day (1.0-2.0); Total Volume 24 Hour Urine 775 mL
[2024-08-29 13:53] LABS: Uric Acid, 24 Hr Urine 556.5 mg/Day (250-750)
[2024-08-29 13:54] LABS: Creatinine, 24Hr Urine 1.4 G/Day (1.0-2.0); Sodium 24 Hr Urine 112.4 mmol/Day (40-220); Total Volume 24 Hour Urine 775 mL
[2024-08-30 17:08] LABS: Calcium, 24 Hr Urine 107 mg/24 h; Calcium/Creatinine Ratio 80 mg/g creat (30-275); Creatinine 24Hr Urine 1.34 g/24 h (0.50-2.15)
[2024-09-02 01:59] LABS: 24hr Urine Total Volume 775 mL; Oxalic Acid 24 Urine 33.3 mg/24 h (3.6-38.0)
[2024-09-02 14:48] LABS: 24hr Urine Total Volume 775 mL; Citric Acid, 24hr Urine 467 mg/24 h (100-1300); Citric Acid/Creat Ratio 24U 348 mg/g creat (180-1070); Creatinine, 24U 1.34 g/24 h (0.50-2.15)
== END 2024-08-29 11:29 | disposition home or self-care (01) ==
LOC: HO.LAB 11:28
PROVIDERS: Absent Provider Internal Medicine Nephrology; PCP Registered Nurse; Visit Provider Registered Nurse
DX: N20.0 Calculus of kidney (principal); E11.9 Type 2 diabetes mellitus without complications
CPT/HCPCS: 36415; 82150; 82310; 82340; 82507; 83690; 83945; 83970; 84300; 84550; 84560

== ENCOUNTER 2024-08-31 10:40 | Outpatient (AMB) | payer MEDICARE, MEDICAID, SELFPAY ==
[2024-08-31 11:09] VITALS: BP 122/86; PULSE 78; O2SAT 98; BMI 55.2
--- NOTE | 2024-08-31 11:09 | HO.NEPHOV ---
Vital Signs 08/31/24 11:09 Height 5 ft 1 in Weight 292 lb BMI 55.2 BP 122/86 Blood Pressure Location Lt radial Position Sitting Pulse 78 Pulse Source Pulse Oximeter Pulse Oximetry (%) 98 Oxygen Delivery Method Room Air Intake Visit Reasons: Renal calculus-LVM Metal Room Dental Technician Required: No Accompanied by: Self / Same As Patient Allergies No Known Allergies Allergy (Verified 08/31/24 11:11) HPI Comments Details: Eloise was seen in follow up for renal calculi. She had her first episode of renal calculus in her 20's. She has not had any relapse of the stone until recently. When she had the flank pain in Sep, she underwent a CT scan which showed 4 mm obstructing stone at the right proximal ureter with resulting moderate right hydronephrosis. Her brother and sisters have renal calculi. She does not have any hematuria, fever, nausea or vomiting. Her renal functions have been normal. She is on Topamax. She has PCOS and has been on metformin. Her blood sugars have gone up and has been started on Trulicity. [facility] Medical History (Updated 08/08/24 @ 14:01 by Nile Parkinson MD) History of kidney stones Anxiety Endometriosis Migraines PCOS (polycystic ovarian syndrome) Gestational diabetes HTN (hypertension) Obese Surgical History Hx of tubal ligation Hx of lithotripsy Hx of section History of carpal tunnel surgery Family History Son History of open heart surgery Social History Alcohol intake: never Patient Tobacco Use Status: Former Tobacco user Review of Systems Const All systems reviewed & are unremarkable except as noted in HPI and below Physical Exam Vital Signs: Last Vital Signs Pulse 78 08/31/24 11:09 BP 122/86 08/31/24 11:09 Pulse Ox 98 08/31/24 11:09 Oxygen Delivery Method Room Air 08/31/24 11:09 BMI result Body Mass Index 55.2 Const General: comfortable and no acute distress Orientation/consciousness: patient oriented x3 HEENT Head: Yes normocephalic Mouth: Normal oral and palatal mucosa present Eyes EOM: EOMs intact bilaterally Neck Neck: Yes supple Resp Auscultation: clear to auscultation bilaterally Cardio Jugular venous distension: no JVD Rate: regular rate GI Palpation (GI): Soft to palpation Auscultation: normal bowel sounds General: Yes no CVA tenderness Back/Spine/Pelvis Back: no CVA tenderness Skin General skin exam: no rashes or lesions noted Neuro General: patient oriented x3 and moves all extremities Extrem General: Yes no pedal edema Results Reviewed Nephrology Results: Calcium 9.0 mg/dL (8.4-10.2) 08/29/24 PTH Intact 51.7 pg/mL (8.7-77.1) 08/29/24 Renal US 08/08/24 Assessment & Plan Assessment & Plan (1) Renal calculus: Code(s): N20.0 - Calculus of kidney Category: Medical Plan She needs to maintain good hydration, cut back sodium in diet( which will help with her BP as well), cut back meat and increase fruits and vegetables. She likely will be a candidate for HCTZ and or K citrate. If possible, she should come off Topmax. 24 hour urine collection for stone screen results are pending. Further management is pending evolving data. All questions answered Coding Level of Care Code Est Pt Level 4 (98712) Diagnoses Renal calculus N20.0
== END 2024-08-31 11:27 | disposition home or self-care (01) ==
PROVIDERS: PCP Registered Nurse; Visit Provider Internal Medicine Nephrology
DX: N20.0 Calculus of kidney (principal)
CPT/HCPCS: 99214

== ENCOUNTER → 2024-08-31 10:40 | Outpatient (BNVA) | payer MEDICARE, MEDICAID, SELFPAY | PROVIDERS: PCP Registered Nurse; Visit Provider Internal Medicine Nephrology | DX: N20.0 Calculus of kidney (principal) | CPT/HCPCS: 99212 ==

== ENCOUNTER 2024-10-25 13:57 | Outpatient (REF) | payer MEDICARE, MEDICAID, SELFPAY ==
[2024-10-30 15:06] LABS: HPV Genotype 16 Negative (Negative); HPV Genotype 18 Negative (Negative); HPV High Risk Negative (Negative)
== END 2024-10-25 13:58 | disposition home or self-care (01) ==
LOC: HO.LNP 13:57
PROVIDERS: PCP Registered Nurse; Visit Provider Advanced Practice Midwife
DX: Z13.89 Encounter for screening for other disorder (principal)
CPT/HCPCS: 87626; 88175

== ENCOUNTER 2024-10-25 13:57 | Outpatient (AMB) | payer MEDICARE, MEDICAID, SELFPAY ==
[2024-10-25 14:05] VITALS: BP 144/80; BMI 53.8
--- NOTE | 2024-10-25 14:05 | A.OFFVIS_ITS ---
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 Her last Pap smear was done 2022 and it had positive HPV.. Last year she had abnormal bleeding and had a D&C hysteroscopy with Dr. Healy. She had follow-up with him and a full discussion about what to do about her abnormal bleeding pattern. Thereafter she said she did not get a period for 4 months and the plan had been to put in a Mirena IU S when she got her next. Now her periods have returned and her last couple were very much shorter than they had been in the past but they are very painful and crampy and she bleeds very very heavily with them. This she had not called to schedule the Mirena insertion as previously discussd and planned. She also desires STI testing today.. She has struggles mightily with her weight she has been overweight for a long time she had gestational diabetes and preeclampsia with her 13 years ago she delivered the last 2 at [facility] though she began care 13 years ago with us until we transferred her because of the gestational diabetes and preeclampsia. She now has full-blown diabetes and hypertension but currently is not on meds and is managing. She sees her primary care provider at the [facility]. She was on Trulicity and was doing well with it and felt that she had lost weight and was happy with that. But then she developed an allergic reaction with hives all over and had to stop the Trulicity. She is waiting to see if she can get approved for some of the other injectables. She is afraid of surgery for weight loss because she has heard stories of people having complications but she and her primary care provider have discussed that her backup plan if she is not approved or does not have success with the injectable medications is to consider the gastric balloon. Her recent dietary intake is reasonable and she says she does not eat much [facility] Medical History History of kidney stones Anxiety Endometriosis Migraines PCOS (polycystic ovarian syndrome) Gestational diabetes HTN (hypertension) Obese Surgical History Hx of tubal ligation Hx of lithotripsy Hx of section History of carpal tunnel surgery Family History Son History of open heart surgery Social History Alcohol intake: never Patient Tobacco Use Status: Former Tobacco user Female Reproductive History Menstrual Age of Menarche: 13 Duration of menses: <3 days Date of last menstrual period: 10/03/24 control method: permanent sterilization Total pregnancies: 3 Full term: 3 Date of last pap smear: 06/22/23 (abn, pap,HPV+) History of abnormal pap smear: Yes Date of Mammogram: 04/12/23 (neg) Physical Exam Vital Signs: Last Vital Signs BP 144/80 H 10/25/24 14:05 BMI result Body Mass Index 53.8 Const General: healthy appearing, comfortable, no acute distress, well developed and alert Nutritional Appearance: average body habitus and obese morbidly obese Orientation/consciousness: patient oriented x3 Limitations: no limitations HEENT Head: Yes normocephalic Neck Neck: Yes normal visual inspection Chest Chest palpation & inspection: normal inspection of the chest Breast/axilla inspection: normal inspection of the breasts and normal inspection of the axillae Breast/axilla palpation: normal palpation of the breasts and normal palpation of the axillae Resp Effort & Inspection: normal respiratory effort GI Inspection: Yes normal to inspection, No Abdominal wall edema and No distended Palpation (GI): Soft to palpation and nontender Other: Adipose tissue noted external exam within normal limits vulva healthy mucosa pink no abnormal discharge no inflammation Extremely difficult to visualize patient's cervix unable to despite best efforts bimanual done without use of lubricant. Cervix palpated very high and anteriorly blind Pap done with Cytobrush and spatula held between examiner's fingers with patient confirming that I had reached her cervix small amount of bleeding obtained. No adnexal tenderness difficult to feel entire anatomy secondary to adipose. Good muscle tone in relatively low pubic arch respective to adipose tissue. General: Yes bladder normal to palpation External Female Exam: normal external appearance and normal appearance of the urethra Speculum Exam - Vagina: normal appearance of the vagina, normal palpation and normal vaginal discharge Speculum Exam - Cervix: normal appearance of the cervix, normal palpation and nontender Bimanual exam- vagina & uterus: normal bimanual exam, normal palpation, uterine size normal, bladder normal to palpation, consistency normal, normal palpation, uterine mobility normal, uterine shape normal, No Cervical tenderness present, non-tender and no cervical motion tenderness Bimanual Exam- Adnexa, other: normal adnexae, no masses, normal and No adnexal tenderness Neuro General: patient oriented x3 Results Reviewed Results Reviewed: Name: Eloise No Age/Sex: 42/F Attending: ISHAN RICHARDS CNM : 1980 Submitted by: ISHAN RICHARDS CNM Copies to: MR #: [id number] Status: DEP REF Collected: 06/21/23 Location: [facility] Received: 06/22/23 Interpretation General Category: Negative for intraepithelial lesion/malignancy. Adequacy: Endocervical component present. Interpretation: Reactive cellular changes. Abundant blood present. HPV mRNA E6/E7: DETECTED This assay detects E6/E7 viral messenger RNA (mRNA) from 14 high-risk HPV types (16, 18, 31, 33, 35, 39, 45, 51, 52, 56, 58, 59, 66, 68) HPV Type 16 RNA: Not Detected HPV Type 18/45 RNA: Not Detected HPV testing performed by [facility], [place], [place]. See reference laboratory portion of the EMR for entire report. Clinical Information LMP: Unknown date Previous PAP test: Unknown date/findings Material Received ThinPrep-Cervical Electronically Signed By: Miesha Jhaveri 06/27/23 9933 The Pap Test is a screening procedure with the inherent possibility of both false negative and false positive results. Results should be interpreted in the context of historic and current clinical findings. Reliability of the Pap Test is enhanced by performing the test on a regular repetitive basis. Patient: Eloise No Age/Sex: 42/F MR#: [id number] Page 1 of 1 Name: Eloise No Age/Sex: 43/F Attending: Alin Healy MD : 1980 Submitted by: Alin Healy MD Copies to: Litzy Farooq MR #: [id number] Status: [facility] Collected: 03/16/24 Location: [facility] Received: 03/16/24 Diagnosis Endometrium, curettage: - Few superficial fragments of proliferative endometrium; negative for atypia or hyperplasia. - Fragments of mildly inflamed endocervical and squamous epithelium; fibroinflammatory material. Clinical History Pre-Op Dx: Abnormal uterine and vaginal bleeding Post-Op Dx: Normal endometrial cavity Microscopic Description Microscopic sections reviewed. Material Received [facility] Gross Description Received in formalin labeled ?EMC? is a 2.0 x 2.0 x 1.0 cm aggregate of mucus, blood and multiple congested and hemorrhagic red-maroon tissue fragments, submitted in toto in cassettes A1 and A2. CEDS Copies To Litzy Farooq [address] [place] [address] Alin Healy MD [facility] [address] [place] [address] NOTE: Unless otherwise stated, all tissue is formalin-fixed and paraffin- embedded. Some or all of the immunohistochemical tests reported herein may have been developed and their performance characteristics determined by [facility]. They have not been cleared or approved by the U.S. Food and Drug Administration (FDA). However, the FDA has determined that such clearance or approval is not necessary. This laboratory is certified under the Clinical Laboratory Improvement Amendments of Patient: Eloise No Age/Sex: 43/F MR#: [id number] Page 1 of 2 Assessment & Plan Assessment & Plan (1) Abnormal uterine bleeding (AUB): Comment: With hair growth; see gynecology notes from 2023 plan had been made to insert Mirena IU S with next menses however patient had 4 months of amenorrhea. Periods have returned and are heavy and very crampy. Discussed trying for Mirena insertion with next menses as previously planned. This provider not able to visualize cervix today. (Pap smear of cervix done blindly with Cytobrush and spatula held between fingers- no lubricant used). Code(s): N93.9 - Abnormal uterine and vaginal bleeding, unspecified Category: Medical (2) HPV (human papilloma virus) infection: Comment: Negative Pap Code(s): B97.7 - Papillomavirus as the cause of diseases classified elsewhere Category: Medical (3) Encounter for screening examination for sexually transmitted disease: Code(s): Z11.3 - Encounter for screening for infections with a predominantly sexual mode of transmission Category: Medical (4) Diabetes: Code(s): E11.9 - Type 2 diabetes mellitus without complications Category: Medical (5) Obesity, morbid, BMI 50 or higher: Code(s): E66.01 - Morbid (severe) obesity due to excess calories Category: Medical (6) Women's annual routine gynecological examination: Code(s): Z01.419 - Encounter for gynecological examination (general) (routine) without abnormal findings Category: Medical (7) Breast cancer screening: Code(s): Z12.39 - Encounter for other screening for malignant neoplasm of breast Category: Medical Plan 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 Her last Pap smear was done 2022 and it had positive HPV.. Last year she had abnormal bleeding and had a D&C hysteroscopy with Dr. Healy. She had follow-up with him and a full discussion about what to do about her abnormal bleeding pattern. Thereafter she said she did not get a period for 4 months and the plan had been to put in a Mirena IU S when she got her next. Now her periods have returned and her last couple were very much shorter than they had been in the past but they are very painful and crampy and she bleeds very very heavily with them. This she had not called to schedule the Mirena insertion as previously discussd and planned. She also desires STI testing today.. States she is up-to-date on her mammograms -the last 1 I saw in the system was 2022 I will order 1. She has struggles mightily with her weight she has been overweight for a long time she had gestational diabetes and preeclampsia with her 13 years ago she delivered the last 2 at [facility] though she began care 13 years ago with us until we transferred her because of the gestational diabetes and preeclampsia. She now has full-blown diabetes and hypertension but currently is not on meds and is managing. She sees her primary care provider at the [facility]. She was on Trulicity and was doing well with it and felt that she had lost weight and was happy with that. But then she developed an allergic reaction with hives all over and had to stop the Trulicity. She is waiting to see if she can get approved for some of the other injectables. She is afraid of surgery for weight loss because she has heard stories of people having complications but she and her primary care provider have discussed that her backup plan if she is not approved or does not have success with the injectable medications is to consider the gastric balloon. Her recent dietary intake is reasonable and she says she does not eat much. I discussed all of the above with the patient in great detail the exam was very challenging today despite her best efforts to elevate her hips on her fists. I was unable to visualize the cervix with use of the speculum however I was able to palpate it between my fingers with maximal effort and patient confirmed that I had reached her cervix and blind Pap smear was done with Cytobrush and spatula. We will await the results, I discussed her history of AUB and how it relates to her extreme obesity in the history of PCOS and elevated hormonal milieu, and how this is a dysfunctional eating pattern that she is describing and reviewed previous plan that had been discussed with her and reviewed why this would be a sound plan she said that there was discussion also in the past about how difficult it was to reach her cervix and if he was not able to insert the Mirena in the office a plan might need to be made to do it under anesthesia. She had been instructed to call with her menses to arrange the Mirena insertion and I recommend she really try to make that happen with the next menses and if that can be accomplished it will really help her out. -------- Additionally extensive discussion about her efforts at weight loss and the current plans she is awaiting to see if she will be approved for 1 of the weight loss medications that might be different from the Trulicity which she had an allergic reaction to. Her backup plan is consideration of gastric balloon. I discussed dietary choices and acknowledged the challenge of feeding a family and trying to eat well as well discussed activity she loves going for walk and has a nice place to walk near her house year but [facility]. Suggested re- doubling efforts she has for the most part cut out [employer] as well, which is to her benefit. She has access to local farm produce as well at [facility]. Testing ordered for STIs which she will get done at her best convenience. She has access to portal so can get those results. Additionally we will await the results of the Pap smear and see if this i nadequate sample was obtained blind as it was. Patient has mammogram already ordered in the system scheduled Patient to attempt to Mirena insertion with Dr. Healy with heavy menses Await Pap RTC annually. Orders: Orders Pap Smear Today Z00.00 - Encounter for general adult medical examination without abnormal findings CT NG by PCR Today N89.8 - Other specified noninflammatory disorders of vagina, Z20.2 - Contact with and (suspected) exposure to infections with a predominantly sexual mode of transmission Bacterial Vaginosis Panel Today N89.8 - Other specified noninflammatory disorders of vagina Hepatitis C Antibody Today B97.7 - Papillomavirus as the cause of diseases classified elsewhere, E11.9 - Type 2 diabetes mellitus without complications, E66.01 - Morbid (severe) obesity due to excess calories, N93.9 - Abnormal uterine and vaginal bleeding, unspecified, Z11.3 - Encounter for screening for infections with a predominantly sexual mode of transmission Hepatitis B Surface Antigen Today B97.7 - Papillomavirus as the cause of diseases classified elsewhere, E11.9 - Type 2 diabetes mellitus without complications, E66.01 - Morbid (severe) obesity due to excess calories, N93.9 - Abnormal uterine and vaginal bleeding, unspecified, Z11.3 - Encounter for screening for infections with a predominantly sexual mode of transmission HIV Ab/Ag Today B97.7 - Papillomavirus as the cause of diseases classified elsewhere, E11.9 - Type 2 diabetes mellitus without complications, E66.01 - Morbid (severe) obesity due to excess calories, N93.9 - Abnormal uterine and vaginal bleeding, unspecified, Z11.3 - Encounter for screening for infections with a predominantly sexual mode of transmission Syphilis Screen Today B97.7 - Papillomavirus as the cause of diseases classified elsewhere, E11.9 - Type 2 diabetes mellitus without complications, E66.01 - Morbid (severe) obesity due to excess calories, N93.9 - Abnormal uterine and vaginal bleeding, unspecified, Z11.3 - Encounter for screening for infections with a predominantly sexual mode of transmission Coding Level of Care Code Est Pt Prev Care 40-64y([id number]) Diagnoses Abnormal uterine bleeding (AUB) N93.9 HPV (human papilloma virus) infection B97.7 Encounter for screening examination for sexually transmitted disease Z11.3 Diabetes E11.9 Obesity, morbid, BMI 50 or higher E66.01 Women's annual routine gynecological examination Z01.419 Breast cancer screening Z12.39
--- OUTSIDE RECORDS SUMMARY | 2024-10-25 17:04 | XMS_ITS | Encounter Summary ---
Author Organization [employer] Address [address] [place] [address] Care Team Providers Care Hospital Laboratory Technician Name Role Phone Litzy Farooq Primary Care Provider [phone] Nile Parkinson MD Unavailable Reason for Visit * Reason Onset Date Comments Chart Prep 09/25/2024 Encounter Details Date Type Department Care Team (Late st Contact Info) Description 09/25/2024 Telephone [facility] [address] [place] [address] Rosalio Segura MA Chart Prep Social History Tobacco Use Types Packs/Day Years Used Date Smoking Tobacco: Former Passive Smoke Exposure: Never Smokeless Tobacco: Never Alcohol Use Standard Drinks/Week Comments Never 0 (1 standard drink = 0.6 oz pur e alcohol) Depression Answer Date Recorded Patient Health Questionnaire-9 Score 7 07/18/2023 Patient Health Questionnaire-9 Score 7 07/18/2023 Last PHQ-9: Questionnaire Data Not on file 1 09/17/2022 Housing Stability Answer Date Recorded What is your housing situation today? I have maris ahmadi 01/27/[address] you li ve. Do you have problems with any of the following? None of the above 01/27/2024 Food Insecurity Answer Date Recorded Within the past 12 months, y ou worried that your food would run out before you got money to buy more: Never True 01/27/2024 Within the past 12 months,th e food you bought just didn't last and you didn't have enough money to get more: Never True 02/2024 Transportation Answer Date Recorded In the past 12 months, has l ack of transportation kept you from medical appts, meetings, work or from getting things needed for daily living? No 01/27/2024 Utilities Answer Date Recorded In the past 12 months, has t he electric, gas, oil or water company threatened to shut off services in your home? No 01/27/2024 Depression Answer Date Recorded Patient Health Questionnaire-2 Score 2 07/18/2023 Internet Access Answer Date Recorded Internet Access Q1 Yes 06/01/2024 Internet Access Q2 Not on file 06/01/2024 Comments No Sex and Gender Information Value Date Recorded Sex Assigned at Female 06/21/2022 10:20 AM EDT Legal Sex Female 10:20 AM EDT Gender Identity Female 06/21/2022 10:20 AM EDT Sexual Orientation Straight 06/21/2022 10 :20 AM EDT documented as of this encounter Miscellaneous Notes * Telephone Encounter - Rosalio Huffman MA - 09/25/2024 5:28 PM EST Chart Prep Labs: done Images: done Vaccines due: no updates Referrals: pending appt Screenings: pap smear , Foot Exam, Urine Protein Overdue care gaps: n/a documented in this encounter Plan of Treatment Upcoming Encounters Date Type Department Care Team ([facility] st Contact Info) Description 11/09/2024 11:30 AM EDT Office Visit [facility] [address] [place] [address] Litzy Farooq FNP [address] [place] [address] documented as of this encounter Visit Diagnoses Not on filedocumented in this encounter Additional Health Concerns Assessment Noted Time PHQ-9 Depression Total Score: 7 07/18/20 23 1:09 PM EST documented as of this encounter Care Teams Hospital Laboratory Technician Relationship Specialty Start Date End Date Litzy Farooq FNP [address] [place] [id number] PCP - General Family Medicine 07/19/22 Nile Parkinson MD [address] [place] [address] Drive [address] [place] [address] Nephrology 08/17/24 documented as of this encounter
--- OUTSIDE RECORDS SUMMARY | 2024-10-25 17:04 | XMS_ITS | Encounter Summary ---
Author Organization [employer] Address [address] [place] [address] Care Team Providers Care Scrub Technician Name Role Phone Litzy Farooq Primary Care Provider [phone] Nile Parkinson MD Unavailable Reason for Visit * Reason Onset Date Comments PT1 06/27/2024 Encounter Details Date Type Department Care Team ([facility] st Contact Info) Description 06/27/2024 Telephone [facility] [address] [place], [place] [phone] Litzy Farooq FNP [address] [place], [place] [id number] PT1 Social History Tobacco Use Types Packs/Day Years [...] encounter Miscellaneous Notes * Telephone Encounter - Risa Sauceda - 06/28/2024 9:22 AM EST PT-1 submitted for patient. They will receive a letter of approval or denial in the mail. * Telephone Encounter - Josse Flores RN - 06/27/2024 12:12 PM EST Please see PT1 request below. Thanks. * Telephone Encounter - Alicia Pierce - 06/27/2024 11:47 AM EST Patient calling requesting PT1 Home Address verified: Y/N: Yes Provider name or facility name: [facility] Facility Address: [address] [place] [address] Escort needed: Y/N: No Do you have a wheelchair: Y/N: No If yes- Manual or electric: Visits: 4-5 times a month for 12 months documented in this encounter Plan of Treatment Upcoming Encounters Date Type Department Care Team (Late st Contact Info) Description 11/09/2024 11:30 AM EDT Office Visit [facility] [address] [place] [address] Litzy Farooq FNP [address] [place] [address] documented as of this encounter Visit Diagnoses Not on filedocumented in this encounter Additional Health Concerns Assessment Noted Time PHQ-9 Depression Total Score: 7 07/18/20 23 1:09 PM EST documented as of this encounter Care Teams Scrub Technician Relationship Specialty Start Date End Date Litzy Farooq FNP [address] [place] [address] PCP - General Family Medicine 07/19/22 Nile Parkinson MD [address] [place] [address] Nephrology 08/17/24 documented as of this encounter
--- OUTSIDE RECORDS SUMMARY | 2024-10-25 17:04 | XMS_ITS | Encounter Summary ---
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 Phone Litzy Farooq Primary Care Provider [phone] Nile Parkinson MD Unavailable Reason for Referral * PFT (Routine) - Closed Specialty Diagnoses / Procedures Referred By Edna tang Referred To Contact Diagnoses Wheezing Procedures Pulmonary Function Test Litzy Farooq FNP [address] [place] [address] Phone: tel: fax: [address] Phone: tel: fax: Referral ID Status Reason Start Date Expiration Date Visits Re quested Visits Authorized [id number] Closed 06/24/2024 06/24/2025 1 1 * Hospital - Outpatient (Routine) - Canceled Specialty Diagnoses / Procedures Referred By Edna tang Referred To Contact Diagnoses Loud snoring Procedures Polysomnography Litzy Farooq FNP [address] [place] [address] Phone: tel: fax: [facility] Phone: tel: fax: Referral ID Status Reason Start Date Expiration Date V isits Requested Visits Authorized [id number] Canceled 06/24/2024 06/24/2025 1 1 * Imaging (Routine) - Closed Specialty Diagnoses / Procedures Referred By Edna t Referred To Contact Radiology Diagnoses Elevated liver enzymes Procedures US Abdomen Comp w elastography Litzy Farooq FNP [address] [place] [address] Phone: tel: fax: [facility] [address] [place] [address] Phone: tel: fax: Referral ID Status Reason Start Date Expiration Date Visits Re quested Visits Authorized [id number] Closed 06/22/2024 06/22/2025 1 1 Encounter Details Date Type Department Care Team (Late st Contact Info) Description 06/22/2024 11:15 AM EDT Office Visit [facility] [address] [place] [address] Litzy Farooq FNP [address] [place] [address] Elevated hemoglobin A1c (Primary Dx); Elevated liver enzymes; Encounter for screening for other viral diseases; Loud snoring; Wheezing; Low back pain at multiple sites Social History Tobacco Use Types Packs/Day Years [...] AM EDT documented as of this encounter Last Filed Vital Signs Vital Sign Reading Time Taken Comments Blood Pressure 122/82 06/22/2024 11:30 AM EDT Pulse 81 06/22/2024 11:30 AM EDT Temperature 36.7 ??C (98.1 ??F) 06/22/2024 11:30 AM E DT Respiratory Rate 20 06/22/2024 11:30 AM EDT Oxygen Saturation 98% 06/22/2024 11:30 AM EDT Inhaled Oxygen Concentration - - Weight 127 kg (279 lb 6 oz) 06/22/2024 11:30 AM EDT Height 156.2 cm (5' 1.5 ) 06/22/2024 11:30 AM ED T Body Mass Index 51.93 06/22/2024 11:30 AM EDT documented in this encounter Progress Notes * BAKARI Best - 06/22/2024 11:15 AM EDT Subjective: Eloise Thompson is a 43 y.o. female w/ PMH migraine, PCOS, mixed anxiety and depression,and AUB, who presents to the office for a follow up visit. Interim History: Last PCP visit: 06/01/24 Christiane not approved per insurance, referred to Bariatric clinic Hx of kidney stones - referred to Nephrology, CT scan ordered Referred to Pain Medicine for back pain Mammogram ordered, pending Labs reviewed Blood pressure readings: Home BP readings reviewed, more than 75% SBP WNL, DBP elevated in low 90s.BP well controlled today in office. Denies any chest pain, SOB, WARREN. Acute concerns: Intermittent wheezing with physical activity, URIs, Check PFTs Loud snoring with daytime sleepiness. Risk factors: BMI > 50. Check sleep study. Social History Social History Narrative - Living with her children - Sexual hx: sexually active with [facility] male partner. - Contraception: Hx of bilat salpingectomy - Mental health: denies SI/HI/thoughts of self harm Substance use: -Tobacco: former cigg smoking -Alcohol: none -Opioids: none No Known Allergies Review of Systems Constitutional: Negative for chills and fever. HENT: Negative for congestion. Respiratory: Positive for wheezing. Negative for cough and shortness of breath. Cardiovascular: Negative for chest pain and palpitations. Gastrointestinal: Negative for diarrhea, nausea and vomiting. Psychiatric/Behavioral: Positive for sleep disturbance. Negative for suicidal ideas. Visit Vitals BP 122/82 (BP Location: Left arm, Patient Position: Sitting, BP Cuff Size: Large adult) Pulse 81 Temp 98.1 ??F (36.7 ??C) (Oral) Resp 20 Ht 5' 1.5 (1.562 m) Wt 279 lb 6 oz (127 kg) LMP 06/19/2024 (Exact Date) SpO2 98% BMI 51.93 kg/m?? OB Status Having periods Smoking Status Former BSA 2.35 m?? Physical Exam Constitutional: Appearance: Normal appearance. HENT: Head: Atraumatic. Right Ear: External ear normal. Left Ear: External ear normal. Cardiovascular: Rate and Rhythm: Normal rate and regular rhythm. Pulmonary: Effort: Pulmonary effort is normal. Breath sounds: Normal breath sounds. Neurological: Mental Status: She is alert and oriented to person, place, and time. Psychiatric: Mood and Affect: Mood normal. Behavior: Behavior normal. Problem List Items Addressed This Visit Hematologic Elevated hemoglobin A1c - Primary Overview Lab Results Component Value Date HGBA1C 6.5 (H) 06/01/2024 HGBA1C 5.5 03/31/2023 HGBA1C 5.6 09/16/2021 Current Assessment & Plan Lifestyle interventions encouraged Plan to repeat venous A1c to confirm diagnosis May consider GLP1 for weight management/BG if applicable Relevant Orders Hemoglobin A1c Other Elevated liver enzymes Overview Lab Results Component Value Date AST 64 (H) 06/01/2024 ALT 72 (H) 06/01/2024 TOTPROTEIN 8.2 (H) 06/01/2024 ALB 4.1 06/01/2024 ALP 73 06/01/2024 TOTALBILIRUB 0.7 06/01/2024 Current Assessment & Plan -DDx: MAFLD vs BOLTON vs viral hepatitis vs hemochromatosis vs other -Hep C neg May 2024 -Reviewed lifestyle interventions including routine physical activity, diet rich in fruits, vegetables, and healthy fats. Limited/no alcohol use. May consider coffee intake (3 cups per day) -Fib4: 0.69 -Plan: given persistent elevation, shared decision making to proceed with US with elastography Relevant Orders US Abdomen Comp w elastography Hepatitis B Core Antibody, Total Hepatitis B Surface Antibody, Qualitative Hepatitis B surface antigen, EIA Other Visit Diagnoses Encounter for screening for other viral diseases Relevant Orders Hepatitis B Core Antibody, Total Hepatitis B Surface Antibody, Qualitative Hepatitis B surface antigen, EIA Loud snoring Relevant Orders Polysomnography Wheezing Intermittent, check pulmonary function testing Relevant Orders Pulmonary Function Test Follow up: 1 week, sooner as needed. Current Outpatient Medications Medication Sig Dispense Refill acetaminophen (Tylenol Extra Strength) 500 MG tablet Take 1000mg (2 tablets) every 8 hours prn fever/pain/WARREN. Do not take more than 6 tablets in 24 hours. 120 tablet 3 Blood Pressure Monitor kit Use as directed 3x/week 1 kit 0 clotrimazole (Lotrimin) 1 % cream Apply topically 2 times daily. Use for 4 weeks. 30 g 1 FLUoxetine (PROzac) 10 MG tablet Take 1 tablet (10 mg) by mouth at bedtime. (Take with 20mg pill for total of 30mg) 90 tablet 1 FLUoxetine (PROzac) 20 MG capsule TAKE 1 CAPSULE BY MOUTH EVERY DAY 30 capsule 0 FLUoxetine (PROzac) 20 MG capsule Take 1 capsule (20 mg) by mouth at bedtime. (Take with 10mg pill for total of 30mg) 90 capsule 1 fluticasone (Flonase) 50 MCG/ACT nasal spray Administer 1 spray into each nostril Once per day. 16 g 0 hydrOXYzine HCl (Atarax) 25 MG tablet Take 1 tablet (25 mg) by mouth every 8 (eight) hours if needed for anxiety. 90 tablet 1 ibuprofen 600 MG tablet Take 1 tablet every 8 h during menses. Take with food. May take with Tylenol 30 tablet 1 lidocaine (Lidoderm) 5 % patch Apply 1 patch topically Once per day. Remove & discard patch within 12 hours or as directed by MD. 30 patch 3 melatonin (Melatonin Maximum Strength) 5 MG tablet TAKE 1 TABLET (5 MG) BY MOUTH IF NEEDED AT BEDTIME (DIFFICULTY SLEEPING). 90 tablet 1 metFORMIN (Glucophage) 500 MG tablet Take 1 tablet (500 mg) by mouth with evening meal. 90 tablet 1 Semaglutide-Weight Management (Wegovy) 0.25 MG/0.5ML solution auto-injector Inject 0.25 mg subcutaneously once a week for weeks 1-4 2 mL 3 sodium chloride ([place] Nasal [place]) 0.65 % nasal spray Administer 1 spray into each nostril if needed for congestion. 30 mL 0 SUMAtriptan (Imitrex) 25 MG tablet Take 1 tablet (25 mg) by mouth 1 (one) time if needed for headache. Can repeat dose in 2 hours if no response, but do not exceed 2 doses in 24 hours 15 tablet 0 topiramate 50 MG tablet Take 50 mg by mouth at bedtime. 90 tablet 1 No current facility-administered medications for this visit. Immunization History Administered Date(s) Administered Td (adult), unspecified 02/02/2021 Tdap 11/20/2011 * Alyssa Willingham RN - 06/22/2024 11:15 AM EDT TC to patient. No answer,message left to return call to office. documented in this encounter Miscellaneous Notes * Assessment & Plan Note - BAKARI Best - 06/24/2024 7:51 AM ESTAssociated Problem(s): Type 2 diabetes mellitus without complication, without long-term current useof insulin (CMS/HCC) Lifestyle interventions encouraged Plan to repeat venous A1c to confirm diagnosis May consider GLP1 for weight management/BG if applicable * Assessment & Plan Note - BAKARI Best - 06/24/2024 7:50 AM ESTAssociated Problem(s): Elevated liver enzymes -DDx: MAFLD vs BOLTON vs viral hepatitis vs hemochromatosis vs other -Hep C neg May 2024 -Reviewed lifestyle interventions including routine physical activity, diet rich in fruits, vegetables, and healthy fats. Limited/no alcohol use. May consider coffee intake (3 cups per day) -Fib4: 0.69 -Plan: given persistent elevation, shared decision making to proceed with US with elastography documented in this encounter Plan of Treatment Upcoming Encounters Date Type Department Care Team (Late st Contact Info) Description 11/09/2024 11:30 AM EDT Office Visit [facility] [address] [place] [address] Litzy Farooq FNP [address] [place] [address] Scheduled Orders Name Type Priority Associated Diagnoses Orde r Schedule Polysomnography [facility] Center Routine Loud snoring Expected: 06/24/2024 (Approximate), Expires: 06/24/2025 Pulmonary Function Test PFT Routine Wheezing Expected: 06/24/2024, Expires: 12/22/2024 documented as of this encounter Procedures Procedure Name Priority Date/Time Associated Diagnosis Comments US ABDOMEN COMPLETE WITH ELASTOGRAPHY Routine 08/06/2024 10:14 AM EST Elevated liver enzymes HEPATITIS B SURFACE ANTIGEN, EIA Routine 07/09/2024 10:36 AM EST Elevated liver enzymes Encounter for screening for other viral diseases HEPATITIS B CORE AB TOTAL Routine 07/09/2024 10:36 AM EST Elevated liver enzymes Encounter for screening for other viral diseases HEPATITIS B SURFACE ANTIBODY, QUALITATIVE Routine 07/09/2024 10:36 AM EST Elevated liver enzymes Encounter for screening for other viral diseases HEMOGLOBIN A1C Routine 07/04/2024 12:50 PM EST Elevated hemoglobin A1c documented in this encounter Results * US Abdomen Comp w elastography (08/06/2024 10:14 AM EST) Anatomical Region Laterality Modality Abdomen Ultrasound 08/06/2024 10:1 4 AM EST Narrative 09/18/2024 9:47 AM EST ? [facility] ?[address] ?[place] [address] ? Ultrasound Report ? Signed ? Patient: Ronnie Thompson,Eloise ?M ?? R#: [id number] ? : 1980 ?Acct:[id number] ? Age/Sex: 44 / F ?ADM Date: 08/06/24 ? Loc: HO.US ? Attending Dr: Litzy VILLEGAS ? Ordering Physician: Litzy Farooq ?? Date of Service: 08/06/24 ?? Procedure(s): US abdomen comp w elastography ?? Accession Number(s): [id number] ? cc: Litzy Farooq ? EXAMINATION: ??US ABDOMEN COMPLETE WITH LIVER ELASTOGRAPHY ? HISTORY: Elevated LFT x 2 years ? TECHNIQUE: Real-time grayscale ultrasound imaging of the abdomen was ?? performed and images were reviewed. ? COMPARISON: Correlation is made with a CT of the abdomen without ?? contrast dated 03/04/2022. ? FINDINGS: ?? Liver: ??The liver is enlarged and demonstrates increased echotexture, ?? consistent with steatosis. ??No focal mass or intrahepatic biliary ?? ductal dilatation is identified. ??There is normal hepatopedal flow in ?? the portal vein. ? Ultrasound elastography of the liver was performed with 10 separate ?? measurements of the liver parenchyma with the patient in the supine ?? position. ??Measurements were obtained approximately 2 cm below ?? Zbigniew's capsule and perpendicular to the capsule. ??Images are of ?? satisfactory quality. ? The median shear wave velocity is 1.80 m/s. ?? The interquartile range/median (IQR/median) is 0.04. ? Gallbladder and biliary tree: The gallbladder is surgically absent. ? The common bile duct measures 9 mm in diameter which may be within ?? normal limits for a patient status post cholecystectomy. ? Kidneys: ??The right kidney measures 10.6 cm in length. The left kidney ?? measures 11.5 cm in length. There is slight fullness of the right renal ?? pelvis. ??The kidneys are otherwise unremarkable, without evidence of ?? masses, hydronephrosis, or calculi. ? Pancreas: The pancreatic head, neck, and body are unremarkable. The ?? pancreatic tail is obscured by bowel gas. ? Spleen: The spleen is normal in size and contour, measuring 9.7 cm in ?? length. ? Abdominal aorta and inferior vena cava: The visualized portions of the ?? abdominal aorta and inferior vena cava are normal in caliber. ? There is no free fluid in the abdomen. ? US/US abdomen comp w elastography ?? IMPRESSION: ? Hepatomegaly and hepatic steatosis. ? The median shear wave velocity is 1.80 m/s, corresponding to a median ?? liver stiffness of 9.91 kPa. ??The IQR/median value is 0.04. ??This is ?? indicative of a quality data set. ?? Findings are indicative of a high elastography value suggestive of ?? advanced chronic liver disease. ? REFERENCE: ?? Society of Radiologists in Ultrasound Liver Stiffness Thresholds (2020): ? LIVER STIFFNESS THRESHOLDS: ?? *Shear wave velocity less than 1.3 m/s (Liver Stiffness equal or less ?? than 5 kPa): ??High probability of being normal. ?? *Shear wave velocity less than 1.7 m/s (Liver Stiffness less than 9 ?? kPa): ??In the absence of other known clinical signs, rules out ?? compensated advanced chronic liver disease. ?? *Shear wave velocity between 1.7-2.1 m/s (Liver Stiffness 9-13 kPa): ? Suggestive of compensated advanced chronic liver disease but need ?? further test for confirmation. ?? *Shear wave velocity between 2.1-2.4 m/s (Liver Stiffness 13-17 kPa): ? Rules in compensated advanced chronic liver disease. ?? *Shear wave velocity ??greater than 2.4 m/s (Liver Stiffness over 17 ?? kPa): ??Suggestive of clinically significant portal hypertension. ? QUALITY OF DATA SET: ?? *IQR/Median value equal or less than 0.15 implies a quality data set. ?? *IQR/Median value over 0.15 implies a poor quality data set. ? SIGNIFICANT CHANGE FROM PRIOR EXAM: ?? Significant change if liver stiffness measurement is 10% or greater ?? from prior exam. ? OTHER CONSIDERATIONS: ?? The stage of liver fibrosis may be overestimated in the setting of ?? acute hepatitis, liver inflammation, elevated liver function tests, ?? hepatic vascular congestion, obstructive cholestasis, non-fasting ?? state, and infiltrative diseases such as amyloidosis and lymphoma. ??In ?? some patients with NAFLD, the liver stiffness thresholds for ?? compensated advanced chronic liver disease may be lower. ??In causes ?? other than viral hepatitis and NAFLD, liver stiffness thresholds are ?? not well established. ? Electronically signed by: ??Pedro Pablo Epstein MD ??09/18/2024 09:44 AM EST ? Dictated By: ?Pedro Pablo Epstein MD ? Signed By: ?<Electronically signed by Pedro Pablo Epstein MD in OV> ?09/18/24 0944 ? DD/ 1014 ? TD/TT: 08/06/24 1030 ? Burner Operator: ? Procedure Note Dellsepidehkendaljungter, Image - 09/18/[address] [address] Ultrasound Report Signed Patient: Bill No R#: [id number] : 1980Acct:[id number] Age/Sex: 44 / FADM Date: 08/06/24 Loc: HO.US Attending Dr: Litzy VILLEGAS Ordering Physician: Litzy Farooq Date of Service: 08/06/24 Procedure(s): US abdomen comp w elastography Accession Number(s): [id number] cc: Litzy Farooq EXAMINATION: US ABDOMEN COMPLETE WITH LIVER ELASTOGRAPHY HISTORY: Elevated LFT x 2 years TECHNIQUE: Real-time grayscale ultrasound imaging of the abdomen was performed and images were reviewed. COMPARISON: Correlation is made with a CT of the abdomen without contrast dated 03/04/2022. FINDINGS: Liver: The liver is enlarged and demonstrates increased echotexture, consistent with steatosis. No focal mass or intrahepatic biliary ductal dilatation is identified. There is normal hepatopedal flow in the portal vein. Ultrasound elastography of the liver was performed with 10 separate measurements of the liver parenchyma with the patient in the supine position. Measurements were obtained approximately 2 cm below Zbigniew's capsule and perpendicular to the capsule. Images are of satisfactory quality. The median shear wave velocity is 1.80 m/s. The interquartile range/median (IQR/median) is 0.04. Gallbladder and biliary tree: The gallbladder is surgically absent. The common bile duct measures 9 mm in diameter which may be within normal limits for a patient status post cholecystectomy. Kidneys: The right kidney measures 10.6 cm in length. The left kidney measures 11.5 cm in length. There is slight fullness of the right renal pelvis. The kidneys are otherwise unremarkable, without evidence of masses, hydronephrosis, or calculi. Pancreas: The pancreatic head, neck, and body are unremarkable. The pancreatic tail is obscured by bowel gas. Spleen: The spleen is normal in size and contour, measuring 9.7 cm in length. Abdominal aorta and inferior vena cava: The visualized portions of the abdominal aorta and inferior vena cava are normal in caliber. There is no free fluid in the abdomen. US/US abdomen comp w elastography IMPRESSION: Hepatomegaly and hepatic steatosis. The median shear wave velocity is 1.80 m/s, corresponding to a median liver stiffness of 9.91 kPa. The IQR/median value is 0.04. This is indicative of a quality data set. Findings are indicative of a high elastography value suggestive of advanced chronic liver disease. REFERENCE: Society of Radiologists in Ultrasound Liver Stiffness Thresholds (2020): LIVER STIFFNESS THRESHOLDS: *Shear wave velocity less than 1.3 m/s (Liver Stiffness equal or less than 5 kPa): High probability of being normal. *Shear wave velocity less than 1.7 m/s (Liver Stiffness less than 9 kPa): In the absence of other known clinical signs, rules out compensated advanced chronic liver disease. *Shear wave velocity between 1.7-2.1 m/s (Liver Stiffness 9-13 kPa): Suggestive of compensated advanced chronic liver disease but need further test for confirmation. *Shear wave velocity between 2.1-2.4 m/s (Liver Stiffness 13-17 kPa): Rules in compensated advanced chronic liver disease. *Shear wave velocity greater than 2.4 m/s (Liver Stiffness over 17 kPa): Suggestive of clinically significant portal hypertension. QUALITY OF DATA SET: *IQR/Median value equal or less than 0.15 implies a quality data set. *IQR/Median value over 0.15 implies a poor quality data set. SIGNIFICANT CHANGE FROM PRIOR EXAM: Significant change if liver stiffness measurement is 10% or greater from prior exam. OTHER CONSIDERATIONS: The stage of liver fibrosis may be overestimated in the setting of acute hepatitis, liver inflammation, elevated liver function tests, hepatic vascular congestion, obstructive cholestasis, non-fasting state, and infiltrative diseases such as amyloidosis and lymphoma. In some patients with NAFLD, the liver stiffness thresholds for compensated advanced chronic liver disease may be lower. In causes other than viral hepatitis and NAFLD, liver stiffness thresholds are not well established. Electronically signed by: Pedro Pablo Epstein MD 09/18/2024 09:44 AM EST Dictated By: Pedro Pablo Epstein MD Signed By: <Electronically signed by Pedro Pablo Epstein MD in OV> 09/18/24 0944 DD/ 1014 TD/TT: 08/06/24 1030 Burner Operator: us Litzy VILLEGAS IMG US PROCEDURES Final Result * Hepatitis B surface antigen, EIA (07/09/2024 10:36 AM EST) Hepatitis B Surface Ag Negative Negative [facility] Blood Venous blood specimen / Unknown 07/09/2024 10:36 AM EST 07/09/2024 2:11 PM EST us Litzy VILLEGAS LAB BLOOD ORDERABLES Final Res ult Performing Organization Address [facility] Co de Phone Number [facility] [address] [place] [phone] * Hepatitis B Surface Antibody, Qualitative (07/09/2024 10:36 AM EST) ~Hepatitis B Surface Antibody REACTIVE Nonreactive [facility] Comment:REACTIVE: > 11.99 mI U/mL Blood Venous blood specimen / Unknown 07/09/2024 10:36 AM EST 07/09/2024 2:11 PM EST Litzy Farooq RPG PROGRAMMER LAB BLOOD ORDERABLES Final Res ult Performing Organization Address [facility] Co de Phone Number [facility] [address] [place] [phone] * Hepatitis B Core Antibody, Total (07/09/2024 10:36 AM EST) Pathologist [facility] Hepatitis B Core Antibody Nonreactive Nonreactive [facility] Blood Venous blood specimen / Unknown 07/09/2024 10:36 AM EST 07/09/2024 2:11 PM EST Litzy Farooq RPG PROGRAMMER LAB BLOOD ORDERABLES Final Res ult Performing Organization Address [facility] de Phone Number [facility] [address] [place] [phone] * (ABNORMAL) Hemoglobin A1c (07/04/2024 12:50 PM EST) Hemoglobin A1c 6.6(H) <6.0 % [facility] Comment:Hemoglobin A1C Refer ence Range Adults: 4.8 - 6.0 % Non diabetic: < 6.0 % Goal: < 7.0 %Additional Action Suggested: > 8.0 %Note: Hemoglobin A1c results are invalid for patients with abnormal amounts of HbF. Blood transfusions may impact the HbA1c concentration in the patient sample. Estimated Average Glucose 143 mg/dL [facility] Comment:eAG = Estimated ave rage glucose which is %A1C expressed asaverage glucose, using the formula of the [id number] Glucose study (ADAG), Diabetes Care, Vol.31,#8,Mar. 2007 Blood Venous blood specimen / Unknown 07/04/2024 12:50 PM EST 07/04/2024 2:19 PM EST us Litzy VILLEGAS LAB BLOOD ORDERABLES Final Res ult [facility] [address] [place] [phone] documented in this encounter Visit Diagnoses Diagnosis Elevated hemoglobin A1c- Primary Other abnormal blood chemistry Elevated liver enzymes Other nonspecific abnormal serum enzyme levels Encounter for screening for other viral diseases Loud snoring Wheezing Low back pain at multiple sites documented in this encounter Additional Health Concerns Assessment Noted Time PHQ-9 Depression Total Score: 7 07/18/20 23 1:09 PM EST documented as of this encounter Care Teams Sawmill Production Worker Relationship Specialty Start Date End Date Litzy Farooq FNP [address] [place] [phone] PCP - General Family Medicine 07/19/22 Nile Parkinson MD [address] [place] [address] Drive [address] [place] [address] Nephrology 08/17/24 documented as of this encounter
--- OUTSIDE RECORDS SUMMARY | 2024-10-25 17:04 | XMS_ITS | Encounter Summary ---
Author Organization [employer] Address [address] [facility] 7t [place] [address] Care Team Providers Care Touring Production Manager Name Role Phone Litzy Farooq Primary Care Provider [phone] Nile Parkinson MD Unavailable Encounter Details Date Type Department Care Team ([facility] Contact Info) Description 10/10/2024 Telephone [facility] CHC MED & PEDS [address] [place], [place] [phone] Litzy Farooq FNP [address] [place], [place] [phone] Social History Tobacco Use Types Packs/Day Years [...] encounter Miscellaneous Notes * Telephone Encounter - Kristen Gaspar LPN - 10/12/2024 1:15 PM EST Call was returned to inform pcp changed medication to Mounjaro. No answer No VM left Tc from pt calling to inform received PA letter for medication semaglutide (Ozempic) 2 MG/1.5ML solution pen-injector and states was denied . Pt would like to know next step. * Telephone Encounter - Alicia Pierce - 10/10/2024 12:38 PM EST Tc from pt calling to inform received PA letter for medication semaglutide (Ozempic) 2 MG/1.5ML solution pen-injector and states was denied . Pt would like to know next step. documented in this encounter Plan of Treatment Upcoming Encounters Date Type Department Care Team (Late st Contact Info) Description 11/09/2024 11:30 AM EDT Office Visit [facility] MED & PEDS [address] [place] [address] iLtzy Farooq FNP [address] [place] [address] documented as of this encounter Visit Diagnoses Not on filedocumented in this encounter Additional Health Concerns Assessment Noted Time PHQ-9 Depression Total Score: 7 07/18/20 23 1:09 PM EST documented as of this encounter Care Teams Touring Production Manager Relationship Specialty Start Date End Date Litzy Farooq FNP [address] [place] [address] PCP - General Family Medicine 07/19/22 Nile Parkinson MD [address] [place] [address] Drive [address] [place] [address] Nephrology 08/17/24 documented as of this encounter
--- OUTSIDE RECORDS SUMMARY | 2024-10-25 17:04 | XMS_ITS | Encounter Summary ---
Author Organization [employer] Address [address] [facility] 7t [place] [address] Care Team Providers Care Supervisor [employer] Name Role Phone Litzy Farooq Primary Care Provider [phone] Nile Parkinson MD Unavailable Encounter Details Date Type Department Care Team ([facility] st Contact Info) Description 10/12/2024 Orders Only [facility] CHC MED & PEDS [address] [place], [place] [phone] Litzy Farooq FNP [address] [place], [place] [phone] Type 2 diabetes mellitus without complication, without long-term current use of insulin ([facility]) (Primary Dx) Social History Tobacco Use Types Packs/Day Years [...] AM EDT documented as of this encounter Progress Notes * BAKARI Best - 10/12/2024 1:08 PM EST FABIANO for Meredith denied, requested fredo. Med sent to [facility] pharmacy. documented in this encounter Plan of Treatment Upcoming Encounters Date Type Department Care Team ([facility] Contact Info) Description 11/09/2024 11:30 AM EDT Office Visit [facility] MED & PEDS [address] [place] [address] Litzy Farooq FNP [address] [place] [address] documented as of this encounter Visit Diagnoses Diagnosis Type 2 diabetes mellitus without complication, without long-term current use of insulin ([facility])- Primary documented in this encounter Additional Health Concerns Assessment Noted Time PHQ-9 Depression Total Score: 7 07/18/20 23 1:09 PM EST documented as of this encounter Care Teams Supervisor [employer] Relationship Specialty Start Date End Date Litzy Farooq FNP [address] [place] [address] PCP - General Family Medicine 07/19/22 Nile Parkinson MD [address] [place] [address] Drive [address] [place] [address] Nephrology 08/17/24 documented as of this encounter
--- OUTSIDE RECORDS SUMMARY | 2024-10-25 17:04 | XMS_ITS | Encounter Summary ---
Author Organization [employer] Address 75 [facility] 7t [place] [address] Care Team Providers Care Licensed Acupuncturist Name Role Phone Litzy Farooq Primary Care Provider [phone] Nile Parkinson MD Unavailable Reason for Visit * Reason Onset Date Comments Pt1 06/22/2024 Encounter Details Date Type Department Care Team (Late st Contact Info) Description 06/22/2024 Telephone [facility] MEDICINE [address] [place] [address] Litzy Farooq FNP [address] [place], [place] [phone] Pt1 Social History Tobacco Use Types Packs/Day Years [...] your housing situation today? I have maris galdino 01/27/[address] you li [...] encounter Miscellaneous Notes * Telephone Encounter - Forrest Paulson - 06/22/2024 2:27 PM EDT Patient calling requesting PT1 Home Address verified: Y/N: Yes Provider name or facility name: [facility] Escort needed: Y/N: Yes Do you have a wheelchair: Y/N: No If yes- Manual or electric: Visits: 1x a month documented in this encounter Plan of Treatment Upcoming Encounters Date Type Department Care Team ([facility] st Contact Info) Description 11/09/2024 11:30 AM EDT Office Visit [facility] MED & PEDS [address] [place] [address] Litzy Farooq FNP [address] [place] [address] documented as of this encounter Visit Diagnoses Not on filedocumented in this encounter Additional Health Concerns Assessment Noted Time PHQ-9 Depression Total Score: 7 07/18/20 23 1:09 PM EST documented as of this encounter Care Teams Licensed Acupuncturist Relationship Specialty Start Date End Date Litzy Farooq FNP [address] [place] [address] PCP - General Family Medicine 07/19/22 Nile Parkinson MD [address] [place] [address] [address] [place] [address] Nephrology 08/17/24 documented as of this encounter
--- OUTSIDE RECORDS SUMMARY | 2024-10-25 17:04 | XMS_ITS | Encounter Summary ---
Author Organization [employer] Address 75 [facility] 7 [place] [address] Care Team Providers Care Sane Nurse Name Role Phone Litzy Farooq Primary Care Provider [phone] Nile Parkinson MD Unavailable Reason for Visit * Reason Onset Date Comments Prior Authorization 10/03/2024 Encounter Details Date Type Department Care Team ([facility] st Contact Info) Description 10/03/2024 Telephone [facility] CHC MED & PEDS [address] [place], [place] [phone] Litzy Farooq FNP [address] [place], [place] [phone] Prior Authorization Social History Tobacco Use Types Packs/Day Years [...] is your housing situation today? I have mrais ahmadi 01/27/[address] you [...] Telephone Encounter - Kristen Gaspar LPN - 10/03/2024 9:03 AM EST PA GENERATED VIA [facility] PENDING INSURANCE DESICION ---- Message from Litzy Farooq sent at 09/30/2024 8:01 PM EST ----- Please generate PA for ozempic for pt (T2DM) - she has tried and failed Trulicity. Thank you! * Telephone Encounter - Kristen Gaspar LPN - 10/03/2024 9:03 AM EST ----- Message from Litzy Farooq sent at 09/30/2024 8:01 PM EST ----- Please generate PA for ozempic for pt (T2DM) - she has tried and failed Trulicity. Thank you! documented in this encounter Plan of Treatment Upcoming Encounters Date Type Department Care Team (Late st Contact Info) Description 11/09/2024 11:30 AM EDT Office Visit [facility] MED & PEDS [address] [place] [address] Litzy Farooq FNP 505 [place] [address] documented as of this encounter Visit Diagnoses Not on filedocumented in this encounter Additional Health Concerns Assessment Noted Time PHQ-9 Depression Total Score: 7 07/18/20 23 1:09 PM EST documented as of this encounter Care Teams Sane Nurse Relationship Specialty Start Date End Date Litzy Farooq FNP [address] [place] [address] PCP - General Family Medicine 07/19/22 Nile Parkinson MD [address] [place] [address] Drive [address] [place] [address] Nephrology 08/17/24 documented as of this encounter
--- OUTSIDE RECORDS SUMMARY | 2024-10-25 17:04 | XMS_ITS | Encounter Summary ---
Author Organization [employer] Address [address] [facility] [address] 7t [place] [address] Care Team Providers Care Seismic Computer Name Role Phone CedrickLitzy carlson BAKARI Primary Care Provider [phone] Nile Parkinson MD Unavailable Encounter Details Date Type Department Care Team (Latest Contact Info) Description 09/28/2024 Travel Social History Tobacco Use Types Packs/Day Years [...] AM EDT documented as of this encounter Plan of Treatment Upcoming Encounters Date Type Department Care Team (Late st Contact Info) Description 11/09/2024 11:30 AM EDT Office Visit [facility] CHC MED & PEDS [address] [place] [address] Litzy Farooq FNP 505 [place] [address] documented as of this encounter Visit Diagnoses Not on filedocumented in this encounter Additional Health Concerns Assessment Noted Time PHQ-9 Depression Total Score: 7 07/18/20 23 1:09 PM EST documented as of this encounter Care Teams Seismic Computer Relationship Specialty Start Date End Date Litzy Farooq FNP [address] [place] [address] PCP - General Family Medicine 07/19/22 Nile Parkinson MD [address] [place] [address] Drive [address] [place] [address] Nephrology 08/17/24 documented as of this encounter
--- OUTSIDE RECORDS SUMMARY | 2024-10-25 17:04 | XMS_ITS | Encounter Summary ---
Author Organization [employer] Address [address] [facility] 7t [place] [address] Care Team Providers Care Rock Star Name Role Phone Litzy Farooq Primary Care Provider [phone] Nile Parkinson MD Unavailable Encounter Details Date Type Department Care Team (Late st Contact Info) Description 09/28/2024 11:30 AM EST Office Visit [facility] CHC MED & PEDS [address] [place], [place] [phone] Litzy Farooq FNP 505 [place] [address] Type 2 diabetes mellitus without complication, without long-term current use of insulin (CMS/HCC) (Primary Dx); Adjustment disorder with mixed anxiety and depressed mood Social History Tobacco Use Types Packs/Day Years [...] Sign Reading Time Taken Comments Blood Pressure 138/90 09/28/2024 11:59 AM EST Pulse 80 09/28/2024 11:57 AM EST Temperature 36.2 ??C (97.2 ??F) 09/28/2024 11:[address] Respiratory Rate 22 09/28/2024 11:57 AM EST Oxygen Saturation - - Inhaled Oxygen Concentration - - Weight 128 kg (282 lb 2 oz) 09/28/2024 11:57 AM EST Height 156.2 cm (5' 1.5 ) 09/28/2024 11:57 AM ES T Body Mass Index 52.44 09/28/2024 11:57 AM EST documented in this encounter Progress Notes * Litzy Farooq, BALLAST INSPECTOR - 09/28/2024 11:30 AM EST Subjective: Eloise Thompson is a 44 y.o. female w/ PMH migraine, PCOS, mixed anxiety and depression,and AUB, who presents to the office for a follow up visit. Interim History: - Last PCP visit: 08/17/24 - 08/31/24: [facility]: Dr. Nile Parkinson. F/up for renal calculi. Plan: good hydration, decrease sodium and meat, increase fruits and vegetables. Likely candidate for hydrochlorothiazide orK-citrate. If possible, come off Topamax. - Today, reports that current dose of Topamax has been therapeutic for migraines and not interestedin decreasing dose at this time. HPI: T2DM: initiated on Trulicity last appt, noticed decrease in appetite and has been eating smaller portion sizes and healthier food choices. FBG levels reviewed, >80% within target. However, after afew injections, started to get injection site reaction with redness, mild swelling, and itching. Worsened with subsequent injections and advised to discontinue medication. She is interested in trial of similar medication given its efficacy in assistance with BG control and appetite regulation. Mental health: history of adjustment disorder with mixed anxiety and depressed mood. Continues withfluoxetine 30mg daily and hydroxyzine PRN. Was referred to OP therapy in 2022, although reports never able to establish. Currently experiencing symptoms of increased anxiety, mind racing, and difficulty with concentration. Social History Social History Narrative - Living with her children - Sexual hx: sexually active with intermediate male partner. - Contraception: Hx of bilat salpingectomy - Mental health: denies SI/HI/thoughts of self harm Substance use: -Tobacco: former cigg smoking -Alcohol: none -Opioids: none Allergies Allergen Reactions Dulaglutide Rash Review of Systems Constitutional: Negative for chills and fever. HENT: Negative for congestion. Respiratory: Negative for cough and shortness of breath. Cardiovascular: Negative for chest pain and palpitations. Gastrointestinal: Negative for diarrhea, nausea and vomiting. Psychiatric/Behavioral: Positive for decreased concentration. Negative for suicidal ideas. The patient is nervous/anxious. Visit Vitals BP (!) 138/90 (BP Location: Right arm, Patient Position: Sitting, BP Cuff Size: Large adult) Pulse 80 Temp 97.2 ??F (36.2 ??C) (Oral) Resp 22 Ht 5' 1.5 (1.562 m) Wt 282 lb 2 oz (128 kg) LMP (LMP Unknown) BMI 52.44 kg/m?? OB Status Having periods Smoking Status Former BSA 2.36 m?? Physical Exam Constitutional: Appearance: Normal appearance. HENT: Head: Atraumatic. Right Ear: External ear normal. Left Ear: External ear normal. Cardiovascular: Rate and Rhythm: Normal rate and regular rhythm. Pulmonary: Effort: Pulmonary effort is normal. Breath sounds: Normal breath sounds. Abdominal: Tenderness: There is no right CVA tenderness or left CVA tenderness. Neurological: Mental Status: She is alert and oriented to person, place, and time. Psychiatric: Mood and Affect: Mood normal. Behavior: Behavior normal. Screening: Adult ADHD Self-Report Scale (ASRS-v1.1) Part A score: 4/6 Problem List Items Addressed This Visit Endocrine/Metabolic Type 2 diabetes mellitus without complication, without long-term current use of insulin ([facility]) -Primary Overview Lab Results Component Value Date HGBA1C 6.6 (H) 07/04/2024 HGBA1C 6.5 (H) 06/01/2024 HGBA1C 5.5 03/31/2023 Lab Results Component Value Date TRIG 139 06/01/2024 CHOL 142 06/01/2024 LDLCHOLCAL 81 06/01/2024 HDL 34 (L) 06/01/2024 Microalbumin: discuss at f/up Eye exam: discuss at f/up Foot exam: discuss at f/up PNA: eligible Tdap/Td: UTD ACEi/ARB: no Statin: no ASA: no Medications: Start semaglutide 0.25mg subcutaneous weekly. Reviewed med safety and SE Previous medications: - Trulicity subcutaneous (Jun 2024-Sep 2024) discontinued d/t SE/reaction -Lifestyle interventions encouraged Treatment Goals: A1c goal: <7% FBG goal: <130 2 hour post prandial goal: <180 Current Assessment & Plan PA request for semaglutide sent 09/30/24 Other Adjustment disorder with mixed anxiety and depressed mood Current Assessment & Plan Has been experiencing increased symptoms of racing thoughts, anxiety, and difficulty concentrating Behavioral health: BE completed 07/18/23 and referred to [facility] for OP therapy - not established Re-referral for BE scheduled 10/10/24 Medications: Cont fluoxetine to 30mg daily Cont hydroxyzine 25mg TID PRN for acute stress/anxiety Cont melatonin 5mg at bedtime PRN sleeping difficulties Reviewed med use, safety, and SE Follow up: 6 weeks T2DM, sooner as needed Current Outpatient Medications Medication Sig Dispense Refill acetaminophen (Tylenol Extra Strength) 500 MG tablet Take 1000mg (2 tablets) every 8 hours prn fever/pain/WARREN. Do not take more than 6 tablets in 24 hours. 120 tablet 3 Alcohol Swabs 70 % pads Use to test blood sugar 1-2 times daily 100 each 11 Blood Glucose Monitoring Suppl (FreeStyle [place]sonia Lite) w/Device kit Use to test blood sugar 1-2 times daily 1 kit 1 Blood Pressure Monitor kit Use as directed 3x/week 1 kit 0 clotrimazole (Lotrimin) 1 % cream Apply topically 2 times daily. Use for 4 weeks. 30 g 1 famotidine (Pepcid) 20 MG tablet Take 1 tablet (20 mg) by mouth if needed in the morning and at bedtime for heartburn or indigestion. 60 tablet 2 FLUoxetine (PROzac) 10 MG capsule Take 1 tablet (10 mg) by mouth at bedtime. (Take with 20mg pill for total of 30mg) 90 capsule 1 FLUoxetine (PROzac) 10 MG capsule Take 1 capsule (10 mg) by mouth Once per day. (Take with 20mg pill for a total of 30mg) 90 capsule 1 FLUoxetine (PROzac) 20 MG capsule Take 1 capsule (20 mg) by mouth at bedtime. (Take with 10mg pill for total of 30mg) 90 capsule 1 fluticasone (Flonase) 50 MCG/ACT nasal spray Administer 1 spray into each nostril Once per day. 16 g 0 FREESTYLE LITE test strip Use to test blood sugar 1-2 times daily 100 each 12 hydrOXYzine HCl (Atarax) 25 MG tablet TAKE 1 TABLET (25 MG) BY MOUTH EVERY 8 (EIGHT) HOURS IF NEEDED FOR ANXIETY. 270 tablet 1 ibuprofen 600 MG tablet Take 1 tablet every 8 h during menses. Take with food. May take with Tylenol 30 tablet 1 Lancets misc Use to test blood sugar 1-2 times daily 100 each 11 lidocaine (Lidoderm) 5 % patch Apply 1 patch topically Once per day. Remove & discard patch within 12 hours or as directed by . 30 patch 3 melatonin (Melatonin Maximum Strength) 5 MG tablet TAKE 1 TABLET (5 MG) BY MOUTH IF NEEDED AT BEDTIME (DIFFICULTY SLEEPING). 90 tablet 1 metFORMIN (Glucophage) 500 MG tablet Take 1 tablet (500 mg) by mouth with evening meal. 90 tablet 1 semaglutide (Ozempic) 2 MG/1.5ML solution pen-injector Inject 0.25 mg under the skin 1 (one) time per week. 1 each 1 simethicone (Mylicon) 80 MG tablet Take 1-2 tablets (80-160 mg) by mouth if needed in the morning, at noon, and at bedtime (gas and bloating). 100 tablet 3 sodium chloride (Chilton Nasal Aston) 0.65 % nasal spray Administer 1 spray into each nostril if needed for congestion. 30 mL 0 SUMAtriptan (Imitrex) 25 MG tablet Take 1 tablet (25 mg) by mouth 1 (one) time if needed for headache. Can repeat dose in 2 hours if no response, but do not exceed 2 doses in 24 hours 15 tablet 0 topiramate 50 MG tablet Take 1 tablet (50 mg) by mouth at bedtime. 90 tablet 1 No current facility-administered medications for this visit. Immunization History Administered Date(s) Administered Td (adult), unspecified 02/02/2021 Tdap 11/20/2011 documented in this encounter Miscellaneous Notes * Assessment & Plan Note - BAKARI Best - 09/30/2024 8:01 PM ESTAssociated Problem(s): Type 2 diabetes mellitus without complication, without long-term current useof insulin ([facility]) PA request for semaglutide sent 09/30/24 * Assessment & Plan Note - BAKARI Best - 09/30/2024 7:55 PM ESTAssociated Problem(s): Adjustment disorder with mixed anxiety and depressed mood Has been experiencing increased symptoms of racing thoughts, anxiety, and difficulty concentrating Behavioral health: BE completed 07/18/23 and referred to [facility] for OP therapy - not established Re-referral for BE scheduled 10/10/24 Medications: Cont fluoxetine to 30mg daily Cont hydroxyzine 25mg TID PRN for acute stress/anxiety Cont melatonin 5mg at bedtime PRN sleeping difficulties Reviewed med use, safety, and SE documented in this encounter Plan of Treatment Upcoming Encounters Date Type Department Care Team (Late st Contact Info) Description 11/09/2024 11:30 AM EDT Office Visit [facility] CHC MED & PEDS [address] [place] [address] Litzy Farooq FNP [address] [place] [address] documented as of this encounter Visit Diagnoses Diagnosis Type 2 diabetes mellitus without complication, without long-term current use of insulin ([facility])- Primary Adjustment disorder with mixed anxiety and depressed mood documented in this encounter Additional Health Concerns Assessment Noted Time PHQ-9 Depression Total Score: 7 07/18/20 23 1:09 PM EST documented as of this encounter Care Teams Rock Star Relationship Specialty Start Date End Date Litzy Farooq FNP [address] [place] [address] PCP - General Family Medicine 07/19/22 Nile Parkinson MD [address] [place] [address] [address] [place] [address] Nephrology 08/17/24 documented as of this encounter
--- OUTSIDE RECORDS SUMMARY | 2024-10-25 17:04 | XMS_ITS | Encounter Summary ---
Author Organization [employer] Address [address] [facility] [address] 7t [place] [address] Care Team Providers Care Medical Parasitologist Name Role Phone CedrickLitzy carlson BAKARI Primary Care Provider [phone] Nile Parkinson MD Unavailable Encounter Details Date Type Department Care Team (Late st Contact Info) Description 10/05/2024 Telephone [facility] CHC MED & PEDS [address] [place], [place] [phone] Alyssa Willingham, ARNAUD Social History Tobacco Use Types Packs/Day Years [...] encounter Miscellaneous Notes * Telephone Encounter - Alyssa Willingham RN - 10/05/2024 11:28 AM EST Tc to patient for status check. Patient states she did go to [facility] ED, waited 5 hours, and left without being seen, because she needed to get home to feed with baby. Patient states she is feeling much better today, although she is still concerned why her BP is up and down. RN reviewed [facility] hours andpurpose with patient. Pt states she might go to [facility] today, or she might go to [facility] ED. Patient verbally agreed to go to ED if she gets chest ain, shortness of breath, severe headache, blurry vision. documented in this encounter Plan of Treatment Upcoming Encounters Date Type Department Care Team (Late st Contact Info) Description 11/09/2024 11:30 AM EDT Office Visit [facility] MED & PEDS [address] [place] [address] Litzy Farooq FNP [address] [place] [address] documented as of this encounter Visit Diagnoses Not on filedocumented in this encounter Additional Health Concerns Assessment Noted Time PHQ-9 Depression Total Score: 7 07/18/20 23 1:09 PM EST documented as of this encounter Care Teams Medical Parasitologist Relationship Specialty Start Date End Date Litzy Farooq FNP [address] [place] [address] PCP - General Family Medicine 07/19/22 Nile Parkinson MD [address] [place] [address] [place] [id number] Nephrology 08/17/24 documented as of this encounter
--- OUTSIDE RECORDS SUMMARY | 2024-10-25 17:04 | XMS_ITS | Clinical Summary ---
Author Organization [employer] Address [address] [place] [address] Care Team Providers Care Engineering Analyst Name Role Phone CedrickLitzy carlson BAKARI Primary Care Provider [phone] Nile Parkinson MD Unavailable Allergies Active Allergy Reactions Criticality Noted Date Comments Dulaglutide Rash Low 09/28/2024 Medications * This document contains information received from the source organization and may not represent a complete record from that organization. Blood Pressure Monitor kitIndications: Borderline high blood pressure Use as directed 3x/week 1 kit 3 Active ibuprofen 600 MG tablet Take 1 tablet every 8 h during menses. Take with food. May take with Tylenol 30 tablet 1 3 Active SUMAtriptan (Imitrex) 25 MG tablet Take 1 tablet (25 mg) by mouth 1 (one) time if needed for headache. Can repeat dose in 2 hours if no response, but do not exceed 2 doses in 24 hours 15 tablet 4 Active sodium chloride (Schoolcraft Nasal [place]) 0.65 % nasal spray Administer 1 spray into each nostril if needed for congestion. 30 mL 4 04/07/20 25 Active fluticasone (Flonase) 50 MCG/ACT nasal spray Administer 1 spray into each nostril Once per day. 16 g 4 Active acetaminophen (Tylenol Extra Strength) 500 MG tablet Take 1000mg (2 tablets) every 8 hours prn fever/pain/WARREN. Do not take more than 6 tablets in 24 hours. 120 tablet 3 4 Active clotrimazole (Lotrimin) 1 % creamIndication s:Intertrigo Apply topically 2 times daily. Use for 4 weeks. 30 g 1 4 Active lidocaine (Lidoderm) 5 % patchIndication s:Low back pain at multiple sites Apply 1 patch topically Once per day. Remove & discard patch within 12 hours or as directed by MD. 30 patch 3 4 Active famotidine (Pepcid) 20 MG tabletIndicatio ns:Epigastric burning sensation Take 1 tablet (20 mg) by mouth if needed in the morning and at bedtime for heartburn or indigestion. 60 tablet 2 4 08/17/20 25 Active simethicone (Mylicon) 80 MG tabletIndicatio ns:Bloating Take 1-2 tablets (80-160 mg) by mouth if needed in the morning, at noon, and at bedtime (gas and bloating). 100 tablet 3 4 Active FREESTYLE LITE test stripIndication s:Type 2 diabetes mellitus without complication, without long-term current use of insulin ([facility]/HCC) Use to test blood sugar 1-2 times daily 100 each 12 4 08/17/20 25 Active Lancets miscIndications :Type 2 diabetes mellitus without complication, without long-term current use of insulin ([facility]/HCC) Use to test blood sugar 1-2 times daily 100 each 11 4 Active Alcohol Swabs 70 % padsIndications :Type 2 diabetes mellitus without complication, without long-term current use of insulin ([facility]) Use to test blood sugar 1-2 times daily 100 each 11 4 Active Blood Glucose Monitoring Suppl (FreeStyle [place] Lite) w/Device kitIndications: Type 2 diabetes mellitus without complication, without long-term current use of insulin ([facility]) Use to test blood sugar 1-2 times daily 1 kit 1 4 Active topiramate 50 MG tabletIndicatio ns:Migraine without status migrainosus, not intractable, unspecified migraine type Take 1 tablet (50 mg) by mouth at bedtime. 90 tablet 1 5 Active FLUoxetine (PROzac) 20 MG capsuleIndicati ons:Adjustment disorder with mixed anxiety and depressed mood Take 1 capsule (20 mg) by mouth at bedtime. (Take with 10mg pill for total of 30mg) 90 capsule 1 5 09/03/19 26 Active metFORMIN (Glucophage) 500 MG tablet Take 1 tablet (500 mg) by mouth with evening meal. 90 tablet 5 09/03/19 26 Active FLUoxetine (PROzac) 10 MG capsuleIndicati ons:Adjustment disorder with mixed anxiety and depressed mood Take 1 tablet (10 mg) by mouth at bedtime. (Take with 20mg pill for total of 30mg) 90 capsule 5 Active FLUoxetine (PROzac) 10 MG capsule Take 1 capsule (10 mg) by mouth Once per day. (Take with 20mg pill for a total of 30mg) 90 capsule 5 09/03/19 26 Active hydrOXYzine HCl (Atarax) 25 MG tablet TAKE 1 TABLET (25 MG) BY MOUTH EVERY 8 (EIGHT) HOURS IF NEEDED FOR ANXIETY. 270 tablet 1 5 Active melatonin (Melatonin Maximum Strength) 5 MG tablet TAKE 1 TABLET (5 MG) BY MOUTH IF NEEDED AT BEDTIME (DIFFICULTY SLEEPING). 90 tablet 1 5 Active Tirzepatide (Mounjaro) 2.5 MG/0.5ML solution auto-injectorIn dications:Type 2 diabetes mellitus without complication, without long-term current use of insulin (CMS/HCC) Inject 2.5 mg under the skin 1 (one) time per week. 2 mL 1 5 11/12/19 25 Active Dulaglutide (Trulicity) 0.75 MG/0.5ML solution auto-injectorIn dications:Type 2 diabetes mellitus without complication, without long-term current use of insulin (CMS/HCC) Inject 0.5 mL (0.75 mg) under the skin 1 (one) time per week. 2 mL 2 4 09/28/19 25 Discontin ued(Thera py completed ) semaglutide (Ozempic) 2 MG/1.5ML solution pen-injector Inject 0.25 mg under the skin 1 (one) time per week. 1 each 1 5 10/12/19 25 Discontin ued(Thera py completed ) Active Problems Problem Noted Date Diagnosed Date Obstructive sleep apnea 08/17/2024 Overview (08/17/2024): - Sleep study 07/18/24: mild ADRIAN. AHI 9. oxygen elena 84%. Rec: start AutoPAP 5- 20 cm water. - Machine order faxed to [facility] on 08/09/24. Discussed goals and compliance including using >4 hours per night. Type 2 diabetes mellitus wit hout complication, without long-term current use of insulin 06/24/2024 Overview (09/30/2024): Lab Results Component Value Date HGBA1C 6.6 [...] <130 2 hour post prandial goal: <180 Assessment & Plan (09/30/2024 8:01 PM EST): PA request for semaglutide sent 09/30/24 Assessment & Plan (08/17/2024 12:49 PM EST): - Lifestyle interventions encouraged: information provided re: carbohydrates. - Glucometer prescribed - Reviewed symptoms/sign of hypoglycemia Assessment & Plan (06/24/2024 7:51 AM EST): Lifestyle interventions encouraged Plan to repeat venous A1c to confirm diagnosis May consider GLP1 for weight management/BG if applicable Low back pain at multiple sites 06/07/2024 Assessment & Plan (08/17/2024 12:35 PM EST): Following with [facility] - referred to physical therapy during consult Jul 2024 XR May 2024: Mild degenerative disc and facet disease, with moderate changes at L5-S1. Assessment & Plan (06/07/2024 8:00 AM EDT): Describes shooting pain in low back for 3 months No red flag symptoms Plan: check XR for initial imaging Discussed additional tx options such as physical therapy and product management specialist consult. Pt interested in referral to [facility] for further eval, referral placed 06/07/24. History of kidney stones 06/07/2024 Overview (06/07/2024): Personal and family history of kidney stones Initial kidney stone in her 20s Referral to Nephrology for further renal eval May 2024 Assessment & Plan (08/17/2024 12:37 PM EST): - Following with [facility] - Dr. Parkinson (workup initiated Jul 2024) - May be candidate for hydrochlorothiazide or potassium citrate Assessment & Plan (06/07/2024 8:03 AM EDT): - Plan to check CT w/o contrast for eval of shooting back pain with hx of kidney stones - Given personal and family hx of nephrolithiasis, Referral to Nephrology for further consideration of renal causes that could be contributing to formation of kidney stones Abnormal uterine bleeding (AUB) 06/01/2024 Overview (06/07/2024): Followed by [facility]PER[facility] - Dr. Healy EMB completed February 2024 w/ no evidence of pathology Plan: Mirena IUD insertion w/ [facility] 09/09/23: Pelvic/TVUS with the following impression: endometrial thickness is 0.7cm, possible small amount of free fluid adjacent to the right ovary, limited visualization of the bilateral ovaries due to bowel gas. February 2024 EMB Path report: Endometrium, curettage: Few superficial fragments of proliferative endometrium; negative for atypia or hyperplasia. Fragments of mildly inflamed endocervical and squamous epithelium; fibroinflammatory material. Class 3 severe obesity due t o excess calories with body mass index (BMI) of 50.0 to 59.9 in adult 01/29/2024 Assessment & Plan (06/07/2024 8:16 AM EDT): Discussed multimodal approach to weight management, and goals of healthier lifestyle interventions Pt currently on topiramate 50mg nightly for migraines Hx of elevated LFTs, would be good candidate for GLP-1 Discussed Wegovy MOA, SE, safety and use. Christiane MARIO re-initiated May 2024 If not approved through PCP, plan to then consider referral to bariatric surgery Assessment & Plan (01/29/2024 2:03 PM EDT): Discussed multimodal approach to weight management, and goals of healthier lifestyle interventions Plan: continue limiting sugary beverages, increase water consumption Pt currently on topiramate 50mg nightly for migraines Hx of elevated LFTs, would be good candidate for GLP-1 Discussed Wegosummer MOA, SE, safety and use. Nealgovy rx sent to the pharmacy on 01/27/24, PA request submitted 01/29/24 PCOS (polycystic ovarian syndrome) 09/22/2023 Assessment & Plan (09/22/2023 7:13 PM EST): -Continues with metformin 500mg daily -Pelvic US Aug 2023: endometrial thickness is 0.7cm, possible small amount of free fluid adjacent to the right ovary, limited visualization of the bilateral ovaries due to bowel gas. May trial low dose hormonal pills or IUD -Has follow up to discuss options with [facility] CNM Elevated liver enzymes 07/18/2023 Overview (06/24/2024): Lab Results Component Value Date AST 64 (H) 06/01/2024 ALT 72 (H) 06/01/2024 TOTPROTEIN 8.2 (H) 06/01/2024 ALB 4.1 06/01/2024 ALP 73 06/01/2024 TOTALBILIRUB 0.7 06/01/2024 Assessment & Plan (06/24/2024 7:50 AM EST): -DDx: MAFLD vs BOLTON vs viral hepatitis vs hemochromatosis vs other -Hep C neg May 2024 -Reviewed lifestyle interventions including routine physical activity, diet rich in fruits, vegetables, and healthy fats. Limited/no alcohol use. May consider coffee intake (3 cups per day) -Fib4: 0.69 -Plan: given persistent elevation, shared decision making to proceed with US with elastography Assessment & Plan (06/07/2024 8:17 AM EDT): -DDx: NAFLD vs BOLTON vs infx vs other -Labs from Jun 2023 with persistent elevation AST and ALT -Hepatitis Panel c/w immunity to Hep B. Neg for Hep A & Hep C -Denies history of excess alcohol consumption -Reviewed lifestyle interventions including routine physical activity, diet rich in fruits, vegetables, and healthy fats. Limited/no alcohol use. -Plan: repeat labs, consider Abd US w/ elastography Assessment & Plan (08/22/2023 6:10 PM EST): -DDx: NAFLD vs BOLTON vs infx vs other -Labs from Jun 2023 with persistent elevation AST and ALT -Hepatitis Panel c/w immunity to Hep B. Neg for Hep A & Hep C -Denies history of excess alcohol consumption -Reviewed lifestyle interventions including routine physical activity, diet rich in fruits, vegetables, and healthy fats. Limited/no alcohol use. -Plan to repeat labs in 3-6 months, consider abd US Assessment & Plan (07/18/2023 9:56 PM EST): -History of elevated liver enzymes on blood work from Mar 2023 -Repeat blood work ordered today for further eval. To be completed prior to next appt, with plan to review results during appt Adjustment disorder with mixed anxiety and depre ssed mood 06/12/2023 Assessment & Plan (09/30/2024 7:55 PM EST): Has been experiencing increased symptoms of racing thoughts, anxiety, and difficulty concentrating Behavioral health: BE completed 07/18/23 and referred to [facility] for OP therapy - not established Re-referral for BE scheduled 10/10/24 Medications: Cont fluoxetine to 30mg daily Cont hydroxyzine 25mg TID PRN for acute stress/anxiety Cont melatonin 5mg at bedtime PRN sleeping difficulties Reviewed med use, safety, and SE Assessment & Plan (09/22/2023 7:18 PM EST): ?? Well controlled with current regimen ?? Behavioral health: BE completed 07/18/23 and referred to [facility] for OP therapy ?? Medications: ?? Cont fluoxetine to 30mg daily ?? Cont hydroxyzine 25mg TID PRN for acute stress/anxiety ?? Cont melatonin 5mg at bedtime PRN sleeping difficulties ?? Reviewed med use, safety, and SE Assessment & Plan (08/22/2023 6:11 PM EST): ?? Well controlled with current regimen ?? Behavioral health: BE completed 07/18/23 and referred to [facility] for OP therapy ?? Medications: ?? Cont fluoxetine to 30mg daily ?? Cont hydroxyzine 25mg TID PRN for acute stress/anxiety ?? Cont melatonin 5mg at bedtime PRN sleeping difficulties ?? Reviewed med use, safety, and SE Assessment & Plan (07/18/2023 9:55 PM EST): ?? Experience of stress and anxiety related to current family dynamics in the household. ?? Behavioral health: BE completed 07/18/23 ?? Medications: ?? Increase fluoxetine to 30mg daily ?? Cont hydroxyzine 25mg TID PRN for acute stress/anxiety ?? Cont melatonin 5mg at bedtime PRN sleeping difficulties ?? Reviewed med use, safety, and SE Assessment & Plan (07/18/2023 1:25 PM EST): Assessment: Patient presents with anxiety and depressive sxs symptoms. No risk for self- harm, SI, HI. Reason for visit was follow up to assess symptoms and provide support to patient. Symptoms are present in the context of relationship stress with 18 y/o daughter. Provided space to vent and psychoeducation around coping mechanisms to manage anxiety and depressive sxs and recommended Ind. Therapy referral. PCP prescribed fluoxetine 20mg 1 capsule at bed time and hydroxyzine 25mg as needed. At this time Eloise Thompson meets criteria for Visit Diagnoses: Problem List Items Addressed This Visit Other Adjustment disorder with mixed anxiety and depressed mood Patient ready to address current needs Yes Strengths include willing to seek treatment PLAN: 1. Follow up with [facility]: Recommended for follow-up: as needed 2. Patient goal is to engage in OP services 3. Behavioral Recommendations a. Ind. Therapy, referral will be submitted b. Use of coping skills provided c. Take medication as prescribed. Assessment & Plan (06/12/2023 12:48 PM EDT): ?? Experience of stress and anxiety related to current family dynamics in the household. No safety concerns. Leading to difficulties with sleep and functioning throughout the day ?? Behavioral health: following with a therapist ?? Medications: ?? Start fluoxetine 20mg daily ?? Start hydroxyzine 25mg TID PRN for acute stress/anxiety ?? Start melatonin 5mg at bedtime PRN sleeping difficulties ?? Reviewed med use, safety, and SE Intermittent chest pain 06/12/2023 Assessment & Plan (08/22/2023 6:15 PM EST): ?? Intermittent left sided chest pains described as sharp and non- reproducible. Lasting for a few seconds at a time. Asymptomatic in the office ? ? 07/18/23: [facility] Cards - Dr. Melendez. Atypical chest pain, obesity, smoking history. Plan for echo and exercise stress test. Further POC based on findings. ?? ED/urgent care precautions reviewed Assessment & Plan (06/12/2023 12:49 PM EDT): ?? Intermittent left sided chest pains described as sharp and non- reproducible. Lasting for a few seconds at a time. Asymptomatic in the office ?? Referral to cards for further workup and eval placed on 06/12/23 ?? ED/urgent care precautions reviewed Carpal tunnel syndrome of left wrist 04/21/2023 Assessment & Plan (04/21/2023 7:57 PM EDT): -currently tx with symptomatic/conservative measures Elevated blood pressure reading 04/15/2023 Assessment & Plan (06/07/2024 8:14 AM EDT): Initial and repeat elevated in office Asymptomatic Plan: monitor home BP readings over next 2-4 weeks, bring log to follow up appt for review DASH diet Assessment & Plan (04/21/2023 8:06 PM EDT): ?? Possibly r/t ear pain in office ?? Denies any associated cardiac symptoms ?? Recheck at follow up appt in 2-4 weeks Assessment & Plan (04/15/2023 4:08 PM EDT): I advise low Na diet, weight reduction RTC 2 weeks for nurse visit if BP is not at goal plan is to start amlodipine 2.5mg Migraine 01/18/2023 Overview (09/22/2023): ?? Topiramate 50mg nightly for prevention Healthcare maintenance 01/18/2023 Overview (06/07/2024): Pap: May 2023 NILM HPV Positive w/ [facility] CNM. Due for repeat co-testing May 2024 (scheduled with [facility]ICE OPER[facility] Jun 2024) Mammo: BIRADS 1 on 04/12/23. Repeat order placed 06/01/24 Colonoscopy: routine screening starting at 45 y/o Last comprehensive exam: 06/01/24 Assessment & Plan (06/12/2023 12:52 PM EDT): ?? Pap: reports last pap approx 4-5 years ago, believes results were normal. Scheduled with [facility] CNM on 06/21/23. Also interested in discussion of IUD at that time. ?? Mammo: BIRADS 1 on 04/12/23 ?? Colonoscopy: routine screening starting at 45 y/o ?? Asymptomatic STI screening: last Mar 2023 Assessment & Plan (04/21/2023 8:08 PM EDT): ?? Pap: reports last pap approx 4-5 years ago, believes results were normal. Due to schedule follow up ?? Mammo: order placed Mar 2023 for routine screening ?? Colonoscopy: routine screening starting at 45 y/o ?? Asymptomatic STI screening ordered Resolved Problems Problem Noted Date Diagnosed Date Resolved Date COVID-19 04/07/2024 06/01/2024 Assessment & Plan (04/07/2024 9:38 AM EDT): Rx Paxlovid x 5 days, [place] interactions module checked, she will take fluoxetine every other day while taking Paxlovid as fluoxetine levels can be increased by Paxlovid. She will resume fluoxetine daily after she completes rx. Isolation until 04/10. She can be out of isolation, wearing a mask from 04/11 until 04/15, if sxs are resolved without other meds for at least 24h. Counseled to let close contacts within the past week, know about dx so they can be tested if needed. Rest (sleep at least 8 hours a night). Wash hands frequently Hydrate with plenty of water. Use saline nose drops Take Acetaminophen alternated with Ibuprofen as Prn fever or discomfort Gargle with salt water and use throat sprays/lozenges prn Use heated, humidified air or take hot showers. If you have a fever, stay home and away from others (self isolation) until fever-free for 72 hours (temperature should be less than 100??F without medication). UTI symptoms 04/15/2023 04/21/2023 Encounters * This document contains information received from the source organization and may not represent a complete record from that organization. Date Type Department Care Team Description 10/12/2024 Orders Only [facility] [address] [place] [address] Litzy Farooq FNP Type 2 diabetes mellitus without complication, without long-term current use of insulin ([facility]) (Primary Dx) 10/10/2024 Telephone [facility] [address] [place] [address] Litzy Farooq FNP 10/05/2024 Telephone [facility] [address] [place] [address] Alyssa Willingham RN 10/03/2024 Telephone [facility] [address] [place] [address] Litzy Farooq FNP Prior Authorization 09/28/2024 11:30 AM EST Office Visit [facility] [address] [place] [address] Litzy Farooq FNP Type 2 diabetes mellitus without complication, without long-term current use of insulin ([facility]) (Primary Dx); Adjustment disorder with mixed anxiety and depressed mood 09/28/2024 Travel 09/25/2024 Telephone [facility] [address] [place] [address] Rosalio Segura MA Chart Prep 09/21/2024 11:15 AM EST Telemedicine [facility] [address] [place] [address] Vargas Pereira MD Allergic reaction, subsequent encounter (Primary Dx) 09/21/2024 Travel 09/21/2024 Telephone [facility] [address] [place] [address] Litzy Farooq FNP Nurse Triage 09/17/2024 Telephone [facility] [address] [place] [address] Litzy Farooq FNP Nurse Triage 09/12/2024 Refill [facility] [address] [place] [address] Litzy Farooq FNP 09/10/2024 Refill [facility] [address] [place] [address] Litzy Farooq FNP 09/03/2024 Refill [facility] [address] [place] [address] Litzy Farooq FNP Adjustment disorder with mixed anxiety and depressed mood 09/02/2024 Refill [facility] [address] [place] [address] Litzy Farooq FNP Migraine without status migrainosus, not intractable, unspecified migraine type; Adjustment disorder with mixed anxiety and depressed mood 08/27/2024 2:45 PM EST Office Visit [facility] [address] [place] [address] Boom, Cee, OD Accommodative insufficiency (Primary Dx) 08/27/2024 Travel 08/17/2024 11:15 AM EST Office Visit [facility] [address] [place] [address] Litzy Farooq FNP Type 2 diabetes mellitus without complication, without long-term current use of insulin ([facility]/HCC) (Primary Dx); Low back pain at multiple sites; History of kidney stones; Obstructive sleep apnea; Epigastric burning sensation; Bloating 08/17/2024 Travel 08/16/2024 Telephone [facility] [address] [place] [address] Rosalio Segura MA Chart Prep 08/09/2024 Telephone [facility] [address] [place] [id number] Alyssa Jerez RN 08/08/2024 Telephone [facility] [address] [place] [address] Litzy Farooq FNP TC: Sleep Study Results from Last 3 Months Immunizations Name Administration Dates Next Due Td (adult), unspecified 02/02/2021 Tdap 11/20/2011 Family History Medical History Relation Name Comments Diabetes Brother Nephrolithiasis Brother Breast cancer Maternal Grandmother postme nopausal thyroid disorder Maternal Grandmother Diabetes Mother Nephrolithiasis Sister cancer unspecified Sister Relation Name Status Comments Brother Maternal Grandmother Mother Sister Social History Tobacco Use Types Packs/Day Years Used Date Smoking Tobacco: Former Passive Smoke Exposure: Never Smokeless Tobacco: Never Tobacco Cessation:Counseling Given: Not Answered Alcohol Use Standard Drinks/Week Comments Never 0 [...] Orientation Straight 06/21/2022 10 :20 AM EDT Last Filed Vital Signs Vital Sign Reading Time Taken Comments Blood Pressure 138/90 09/28/2024 11:59 AM EST Pulse 80 09/28/2024 11:57 AM EST Temperature 36.2 ??C (97.2 ??F) 09/28/2024 11:[address] Respiratory Rate 22 09/28/2024 11:57 AM EST Oxygen Saturation 98% 08/17/2024 11:20 AM EST Inhaled Oxygen Concentration - - Weight 128 kg (282 lb 2 oz) 09/28/2024 11:57 AM EST Height 156.2 cm (5' 1.5 ) 09/28/2024 11:57 AM ES T Body Mass Index 52.44 09/28/2024 11:57 AM EST Plan of Treatment Upcoming Encounters Date Type Department Care Team (Late st Contact Info) Description 11/09/2024 11:30 AM EDT Office Visit [facility] [address] [place] [address] Litzy Farooq FNP [address] [place] [address] Health Maintenance Due Date Last Done Comments Diabetes: Foot Exam 1991 Diabetes: Urine Protein Screening 2000 Pneumococcal Vaccine: Pediatrics (0 to 5 Years) and At-Risk Patients (6 to 49) Years) (1 of 2 - PCV) 2000 Mammogram 04/12/2024 04/12/2023 Cervical Cancer Screening 06/21/2024 HPV/Cotest 06/21/2024 06/21/2023 Pap Smear 06/21/2024 06/21/2023 Depression Screening 07/18/2024 07/18/2023, 07/18/20 23 Diabetes: Hemoglobin A1C 01/01/2025 024, 06/01/2024, 03/31/2023, Additional history exists Family Planning (PISQ) 01/08/2025 01/09/2024 Influenza Vaccine (#1) 2025 Postp oned from 04/22/2024 (Patient Refused) Alcohol/Substance Use Screening 06/01/2025 06/01/2024 COVID-19 Vaccine ( season) 2025 Postponed from 04/22/2024 (Patient Refused) Lipid Panel 06/01/2025 06/01/2024, 03/22, 09/16/2021 SDOH Screening 06/01/2025 06/01/2024 Tobacco Screening 09/28/2025 09/28/2024 Eye Exam 03/15/2026 03/15/2024, 02/20, 03/15/2024, Additional history exists DTaP/Tdap/Td Vaccines (3 - Td or Tdap) 02/02/2031 02/02/2021, 11/20/2011 Zoster Vaccines (1 of 2) 2031 RSV Patients and Patients Aged 60 years or older (1 - 1-dose 75+ series) 2056 HIV Screening Completed 06/01/2024, 03/22, 09/16/2021 Hepatitis C Screening Completed 06/01/2024 , 03/31/2023, 09/16/2021 HIB Vaccines Aged Out No longer eligi ble based on patient's age to complete this topic HPV Vaccines Aged Out No longer eligi ble based on patient's age to complete this topic Hepatitis A Vaccines Aged Out No long er eligible based on patient's age to complete this topic Hepatitis B Vaccines Discontinued IPV Vaccines Aged Out No longer eligi ble based on patient's age to complete this topic Meningococcal Vaccine Aged Out No katty eneida eligible based on patient's age to complete this topic RSV under 20 months Aged Out No longe r eligible based on patient's age to complete this topic Rotavirus Vaccines Aged Out No longer eligible based on patient's age to complete this topic Procedures Procedure Name Priority Date/Time Associated Diagnosis Comments PTH, INTACT WITHOUT CALCIUM Routine 08/29/2024 11:49 AM EST CALCIUM Routine 08/29/2024 11:49 AM EST URIC ACID Routine 08/29/2024 11:49 AM EST AMYLASE Routine 08/29/2024 11:49 AM EST Type 2 diabetes mellitus without complication, without long-term current use of insulin ([facility]) Epigastric burning sensation LIPASE Routine 08/29/2024 11:49 AM EST Type 2 diabetes mellitus without complication, without long-term current use of insulin ([facility]) Epigastric burning sensation CITRIC ACID, 24-HOUR URINE WITH CREATININE Routine 08/29/2024 7:30 AM EST OXALATE, URINE, 24 HOUR Routine 08/29/2024 7:30 AM EST CALCIUM, 24 HOUR URINE (W/ CREATININE) Routine 08/29/2024 7:30 AM EST URIC ACID, URINE, 24 HOUR Routine 08/29/2024 7:30 AM EST SODIUM, 24-HOUR URINE WITH CREATININE Routine 08/29/2024 7:30 AM EST US ABDOMEN COMPLETE WITH ELASTOGRAPHY Routine 08/06/2024 10:14 AM EST Elevated liver enzymes HEMOGLOBIN A1C Routine 07/04/2024 12:50 PM EST Elevated hemoglobin A1c HEPATITIS C VIRAL RNA, QUANTITATIVE, REAL-TIME PCR Routine 06/01/2024 10:59 AM EDT Healthcare maintenance HIV 1/2 ANTIGEN/ANTIBODY, FOURTH GENERATION W/RFL Routine 06/01/2024 10:59 AM EDT Healthcare maintenance LIPID PANEL, STANDARD Routine 06/01/2024 10:59 AM EDT Healthcare maintenance HPV MRNA E6/E7 REFLEX TO HPV 16, 18/45 Routine 06/21/2023 10:10 AM EDT PAP SMEAR Routine 06/21/2023 10:10 AM EDT BI MAMMOGRAM SCREENING TOMOSYNTHESIS BILATERAL Routine 04/12/2023 4:16 PM EDT from Last 3 Months or Most Recently Relevant to Health Maintenance Results * (ABNORMAL) Uric acid (08/29/2024 11:49 AM EST) Uric Acid 6.5(H) 2.4 - 5.7 mg/dL [facility] 08/29/2024 11:4 9 AM EST 08/29/2024 11:49 AM EST us Generic External Data Provider LAB BLOOD ORDERAB LES Final Result Performing Organization Address [facility]/ZIP Co de Phone Number [facility] [address] [place] [phone] * PTH, Intact Without Calcium (08/29/2024 11:49 AM EST) Parathyroid Hormone, Intact 51.7 8.7 - 77.1 pg/mL [facility] 08/29/2024 11:4 9 AM EST 08/29/2024 11:49 AM EST Generic External Data Provider LAB BLOOD ORDERAB LES Final Result Performing Organization Address City/[facility]/ZIP Co de Phone Number [facility] [address] [place] [phone] * Lipase (08/29/2024 11:49 AM EST) Lipase 26 8 - 78 U/L [facility] Blood Venous blood specimen / Unknown 08/29/2024 11:49 AM EST 08/29/2024 11:49 AM EST us Litzy Farooq MARINE CARGO SPECIALIST LAB BLOOD ORDERABLES Final Res ult Performing Organization Address [facility]/ZIP Co de Phone Number [facility] [address] [place] [phone] * Calcium (08/29/2024 11:49 AM EST) Calcium 9.0 8.4 - 10.2 mg/dL [facility] 08/29/2024 11:4 9 AM EST 08/29/2024 11:49 AM EST us Generic External Data Provider LAB BLOOD ORDERAB LES Final Result Performing Organization Address [facility] Co de Phone Number [facility] [address] [place] [phone] * Amylase (08/29/2024 11:49 AM EST) Amylase 38 28 - 100 U/L [facility] Blood Venous blood specimen / Unknown 08/29/2024 11:49 AM EST 08/29/2024 11:49 AM EST us Litzy Farooq [employer]INE CARGO SPECIALIST LAB BLOOD ORDERABLES Final Res ult Performing Organization Address [facility] de Phone Number [facility] [address] [place] [phone] * Citric Acid, 24-Hour Urine with Creatinine (08/29/2024 7:30 AM EST) Creatinine, 24 Hour Urine 1.34 0.50 - 2.15 g/24 h [facility] Comment:This test was develo ped and its analytical performancecharacteristics have been determined by [employer] [place], [place]. It hasnot been cleared or approved by the U.S. Food and DrugAdministration. This assay has been validated pursuantto the CLIA regulations and is used for clinicalpurposes.THIS TEST WAS PERFORMED AT:[facility] [place] [address]MKFMGJTFLACA CARABALLO MD,PHD Citric Acid, 24 Hr Urine 467 100 - 1300 mg/24 h [facility] Citric Acid/Creatinine Ratio 348 180 - 1070 mg/g creat [facility] Total Volume 775 mL [facility] 08/29/2024 7:30 AM EST 08/29/2024 12:43 PM EST [facility] - 09/02/2024 2:48 PM EST [id number] Generic External Data Provider LAB URINE ORDERAB LES Final Result [facility] [address] [place] [phone] * Sodium, 24-Hour Urine with Creatinine (08/29/2024 7:30 AM EST) Sodium, 24 Hour Urine 112.4 40 - 220 mmol/Day [facility] Creatinine, 24 Hour Urine 1.4 1.0 - 2.0 G/Day [facility] Creatinine, Urine 180.01 [facility] Urine Total Volume 24 Hour 775 mL [facility] 08/29/2024 7:30 AM EST 08/29/2024 12:43 PM EST [facility] - 08/29/2024 1:54 PM EST [id number] us Generic External Data Provider LAB URINE ORDERAB LES Final Result Performing Organization Address [facility] Co de Phone Number [facility] [address] [place] [phone] * Calcium, 24 Hour Urine W/ Creatinine (08/29/2024 7:30 AM EST) Calcium, 24 Hour Urine 107 mg/24 h [facility] Comment:Reference Range 35-2 50 Low calcium diet 35-200 Calcium/Creatini ne Ratio 80 30 - 275 mg/g creat [facility] Creatinine, 24 Hour Urine 1.34 0.50 - 2.15 g/24 h [facility] Comment:THIS TEST WAS PERFOR MED AT:[email or web address] [place] [id number] PEREZ MD 08/29/2024 7:30 AM EST 08/29/2024 12:43 PM EST [facility] - 09/02/2024 1:59 AM EST [id number] Generic External Data Provider LAB URINE ORDERAB LES Final Result Performing Organization Address [facility] de Phone Number [facility] [address] [place] [phone] * Uric acid, urine, 24 hour (08/29/2024 7:30 AM EST) Uric Acid, 24 Hour Urine 556.5 250 - 750 mg/Day [facility] Creatinine, 24 Hour Urine 1.4 1.0 - 2.0 G/Day [facility] Creatinine, Urine 179.72 [facility] Urine Total Volume 24 Hour 775 mL [facility] 08/29/2024 7:30 AM EST 08/29/2024 12:43 PM EST [facility] - 08/29/2024 1:53 PM EST [id number] us Generic External Data Provider LAB URINE ORDERAB LES Final Result Performing Organization Address [facility] Co de Phone Number [facility] [address] [place] [phone] [phone] * Oxalic Acid, 24-Hour Urine without Creatinine (08/29/2024 7:30 AM EST) Oxalic Acid, 24-Hr Urine 33.3 3.6 - 38.0 mg/24 h [facility] Comment:THIS TEST WAS PERFOR MED AT:[facility]/[employer] [id number] [place] [address]ZITZWCHRISTINE HATCH MD,PHD,DAVID Total Volume 775 mL [facility] 08/29/2024 7:30 AM EST 08/29/2024 12:43 PM EST Narrative [facility] - 09/02/2024 1:59 AM EST [id number] Generic External Data Provider LAB URINE ORDERAB LES Final Result Performing Organization Address [facility] Co de Phone Number [facility] [address] [place] [phone] * US Abdomen Comp w elastography (08/06/2024 10:14 AM EST) Anatomical Region Laterality Modality Abdomen Ultrasound 08/06/2024 10:1 4 AM EST Narrative 09/18/2024 9:47 AM EST ? [facility] ?[address] ?[place] [address] ? Ultrasound Report ? Signed ? Patient: Ronnie Thompson,Eloise ?M ?? R#: [id number] ? : 1980 ?Acct:[id number] ? Age/Sex: 44 / F ?ADM Date: 12/16/24 ? Loc: HO.US ? Attending Dr: Litzy VILLEGAS ? Ordering Physician: Litzy Farooq ?? Date of Service: 08/06/24 ?? Procedure(s): US abdomen comp w elastography ?? Accession Number(s): [id number] ? cc: Litzy Farooq ? EXAMINATION: ??US [...] of Radiologists in Ultrasound Liver Stiffness Thresholds (2019): ? LIVER STIFFNESS THRESHOLDS: ?? *Shear wave [...] Pablo Epstein MD ??09/18/2024 09:44 AM EST ?? RP ? Dictated By: ?Pedro Pablo Epstein MD ? Signed By: ?<Electronically signed by Pedro Pablo Epstein MD in OV> ?09/18/24 0944 ? DD/ 1014 ? TD/TT: 08/06/24 1030 ? District Plant Superintendent: ? Procedure Note Donotuseinterpreter, Image - 09/18/2024 [place] [address] Ultrasound Report Signed Patient: Bill No R#: [id number] : 1980Acct:[id number] Age/Sex: 44 / FADM Date: 08/06/24 Loc: HO.US Attending Dr: Litzy VILLEGAS Ordering Physician: Litzy Farooq Date of Service: 08/06/24 Procedure(s): US abdomen comp w elastography Accession Number(s): [id number] cc: Lizty Farooq EXAMINATION: US ABDOMEN COMPLETE WITH LIVER [...] of Radiologists in Ultrasound Liver Stiffness Thresholds (2019): LIVER STIFFNESS THRESHOLDS: *Shear wave velocity less [...] 09/18/24 0944 DD/ 1014 TD/TT: 08/06/24 1030 District Plant Superintendent: us Litzy ANDERSONP IMG US PROCEDURES Final Result * (ABNORMAL) Hemoglobin A1c (07/04/2024 12:50 PM EST) Hemoglobin A1c 6.6(H) <6.0 % [facility] Comment:Hemoglobin A1C Refer ence Range Adults: 4.8 - 6.0 % Non diabetic: < 6.0 % Goal: < 7.0 %Additional Action Suggested: > 8.0 %Note: Hemoglobin A1c results are invalid for patients with abnormal amounts of HbF. Blood transfusions may impact the HbA1c concentration in the patient sample. Estimated Average Glucose 143 mg/dL [facility] Comment:eAG = Estimated ave rage glucose which is %A1C expressed asaverage glucose, using the formula of the Y5O-SqwgflgInesekb Glucose study (ADAG), Diabetes Care, Vol.31,#8,Mar. 2007 Blood Venous blood specimen / Unknown 07/04/2024 12:50 PM EST 07/04/2024 2:19 PM EST us Litzy VILLEGAS LAB BLOOD ORDERABLES Final Res ult Performing Organization Address City/State/[facility] Co de Phone Number [facility] [address] [place] [phone] * Hepatitis C Viral RNA, Quantitative, Real-Time PCR (06/01/2024 10:59 AM EDT) Hepatitis C Viral Load <15 NOT DETECTED NOT DETECTED IU/mL [facility] HCV Log PCR <1.18 NOT DETECTED NOT DETECTED Log IU/mL [facility] Comment:For additional infor naomi, please refer tohttp://education.Hiperos/faq/ZXG00r7(This link is being provided for informational/educational purposes only.)THIS TEST WAS PERFORMED AT:[facility] [place] [phone] PEREZ MD Blood 06/01/2024 10:5 9 AM EDT 06/01/2024 2:05 PM EDT Litzy Farooq [facility] LAB BLOOD ORDERABLES Final Res ult Performing Organization Address City/[facility] Hospital/ZIP Co de Phone Number [facility] [address] [place] [phone] * HIV-1/2 Antigen and Antibodies, Fourth Generation, with Reflexes (06/01/2024 10:59 AM EDT) Pathologist [facility] HIV AB/AG Nonreactive Nonreactive [facility] Comment:HIV-1 p24 Ag and/or HIV-1/HIV-2 Ab not detected.A test result that is nonreactive does not exclude thepossibility of exposure to or infection with HIV-1 and/orHIV-2. Nonreactive results in this assay for individualswith prior exposure to HIV-1 and/or HIV-2 may be due toantigen and antibody levels that are below the limit ofdetection of this assay.The regrob.comniBiomode - Biomolecular Determination HIV Ag/Ab Combo assay result andsupplemental assay results should be interpreted inconjunction with the patient's clinical presentation,history and other laboratory results. If the results areinconsistent with clinical evidence, additional testing issuggested to confirm the result. Blood Venous blood specimen / Unknown 06/01/2024 10:59 AM EDT 06/01/2024 2:05 PM EDT Litzy Farooq [facility] LAB BLOOD ORDERABLES Final Res ult Performing Organization Address City/[facility] Hospital/ZIP Co de Phone Number [facility] [address] [place] [phone] * (ABNORMAL) Lipid Panel, Standard (06/01/2024 10:59 AM EDT) Pathologist [facility] Triglycerides 139 <150 mg/dL [facility] Comment:Desirable Triglyceri de: less than 150 mg/dLBorderline High Triglyceride 150-199 mg/dLHigh Triglyceride: 200-499 mg/dLVery High Triglyceride: greater than or equal to 5OO mg/dL Cholesterol 142 <200 mg/dL [facility] Comment:Desirable Cholestero l: less than 200 mg/dLBorderline High Cholesterol: 200-239 mg/dLHigh Cholesterol: greater than 239 mg/dL LDL Cholesterol Calculated 81 <100 mg/dL [facility] Comment:Desirable LDL: less than 100 mg/dLNear Optimal/Above Optimal LDL: 110- 129 mg/dLBorderline High LDL: 130-159 mg/dLHigh LDL: 160-189 mg/dLVery High LDL: greater than or equal to 190 mg/dL HDL Cholesterol 34(L) >40 mg/dL [facility] Comment:Desirable HDL: great er than 40 mg/dL Note: This HDL assay may give artificially low results in patients with liver disease. Blood Venous blood specimen / Unknown 06/01/2024 10:59 AM EDT 06/01/2024 2:05 PM EDT us Litzy Farooq [facility] LAB BLOOD ORDERABLES Final Res ult [facility] [address] [place] [phone] * (ABNORMAL) HPV mRNA E6/E7 w/Reflex to HPV Genotypes 16, 18/45 (06/21/2023 10:10 AM EDT) HPV nRNA E6/E7 Detected(A ) Not Detected [facility] Comment:Methodology: Transcr iption-Mediated AmplificationThis assay detects E6/E7 viral messenger RNA (mRNA) from 14high-risk HPV types (16,18,31,33,35,39,45,51,52,56,58,59,66,68).Cervical sources are required for HPV testing.If a vaginal source from a patient who has had atotal hysterectomy with removal of cervix wassubmitted, please contact the testing laboratoryfor alternative testing options.For additional information, please refer tohttp://education.Hiperos/faq/KQY054m3(This link if provided for information/educational purposes only.)THIS TEST WAS PERFORMED AT:[facility] [address] [id number] PEREZ MD HPV 16 RNA NOT DETECTED NOT DETECTED [facility] HPV 18/45 RNA NOT DETECTED NOT DETECTED [facility] Comment:Methodology: Transcr iption Mediated AmplificationCervical sources are required for HPV testing.If a vaginal source from a patient who has had atotal hysterectomy with removal of cervix wassubmitted, please contact the testing laboratoryfor alternative testing options.THIS TEST WAS PERFORMED AT:[facility] [address] [phone] PEREZ MD 06/21/2023 10:1 0 AM EDT 06/22/2023 9:00 AM EDT Ishan Richards [facility] CYTOLOGY ORDERABLES F inal Result [facility] [address] [place] [phone] * Pap Smear (06/21/2023 10:10 AM EDT) 06/21/2023 10:1 0 AM EDT 06/22/2023 9:00 AM EDT Narrative [facility] - 06/27/2023 1:07 PM EST ----- ------- Name: Eloise No ? Age/Sex: 42/F ? : 1980 Unit#: [id number] ?? Attend Dr: ISHAN RICHARDS CNM ?Re06/21/23 ?Status: DEP REF ? Location: HO.CHCLNP ? Disch: ? ----- ------- SPEC : [id number] ?RECD: 06/22/23 ? STATUS: ??SOUT ? REQ NUM: [id number] ? DEBORAH: 06/21/230 ? SUBM DR: ISHAN RICHARDS CNM ? ENTERED: ??06/22/23 ?SP TYPE: Pap Smr ?OTHR DR: ? ORDERED: ??Pap Smear, PAP path review ? Interpretation ?? General Category: ? Negative for intraepithelial lesion/malignancy. ?? Adequacy: ? Endocervical component present. ?? Interpretation: ? Reactive cellular changes. ?Abundant blood present. ? HPV mRNA E6/E7: ?DETECTED ? This assay detects E6/E7 viral messenger RNA (mRNA) from 14 high-risk HPV types (16, 18, ?? 31, 33, 35, 39, 45, 51, 52, 56, 58, 59, 66, 68) ? HPV Type 16 RNA: ?Not Detected ?? HPV Type 18/45 RNA: ? Not Detected ? HPV testing performed by [facility], [place], [place]. ??See reference laboratory ?? portion of the EMR for entire report. ?Clinical Information LMP: Unknown date Previous PAP test: Unknown date/findings ? Material Received ?? ThinPrep-Cervical ----- ------- Signed (signature on file) Miesha Jhaveri 06/27/23 3947 ? ----- ------- ? END OF REPORT ? us Ishan Rizzardini CNM LAB CYTOLOGY ORDERABLES F inal Result [facility] [address] [place] [phone] * BI Mammogram Screening Tomosynthesis Bilateral (04/12/2023 4:16 PM EDT) Anatomical Region Laterality Modality Breast Bilateral Mammography 04/12/2023 4:16 PM EDT Narrative 04/12/2023 5:35 PM EDT ? [facility] [place] ? [address] ?[place] [address] ? Mammography Report ? Signed ? Patient: Trujillo ThompsonJaylinEloise ?M ?? R#: [id number] ? : 1980 ?Acct:[id number] ? Age/Sex: 42 / F ?ADM Date: 04/12/23 ? Loc: HO.MAMMO ? Attending Dr: Litzy Farooq MARINE CARGO SPECIALIST ? Ordering Physician: Litzy Farooq MARINE CARGO SPECIALIST ?Results: 1Negat ?? cassandra ? Date of Service: 04/12/23 ?Follow Up: 1 Year From Orig ?? inal Mammogram ? Procedure(s): MM tomosynthesis screening BI ?? Accession Number(s): [id number] ? cc: Litzy Farooq MARINE CARGO SPECIALIST ? EXAMINATION: ?? MM SCREENING DIGITAL BREAST TOMOSYNTHESIS, BILATERAL ? CLINICAL INFORMATION: ? Screening. Asymptomatic. ? COMPARISON: ?? Mammography: This study is compared with the only prior mammogram for ?? comparison from 2015. ? TECHNIQUE: ?? Digital breast tomosynthesis is performed in both the craniocaudal and ?? mediolateral oblique views along with computer-aided detection (CAD). ?? Synthesized 2D images are generated from the tomosynthesis. ? FINDINGS: ?? There are scattered areas of fibroglandular density (ACR BI-RADS breast ?? composition Category b). ? The patient has bilateral nipple rings. ?? There are no significant masses, abnormal calcifications, or other ?? abnormalities. ? MM/MM tomosynthesis screening BI ?? IMPRESSION: ?? No mammographic evidence of malignancy. ? ASSESSMENT: ? BI-RADS BI-RADS 1 - Negative ? RECOMMENDATION: ?? Routine annual mammography screening. ? 1 year F/U ? This examination should not preclude the clinical evaluation of a ?? suspicious palpable abnormality. ? This patient's information was entered into a reminder system with a ?? target due date for their next mammogram. ? Dictated By: ?Helene Edwards MD ? Signed By: ?<Electronically signed by Helene Edwards MD in OV> ? 04/12/23 1732 ? DD/ 1616 ? TD/TT: ? District Plant Superintendent: ? Procedure Note Celestino, Mari - 04/12/2023 [facility] [address] [place] [address] Mammography Report Signed Patient: Bill No R#: [id number] : 1980Acct:[id number] Age/Sex: 42 / FADM Date: 04/12/23 Loc: [facility] Attending Dr: Litzy Farooq MARINE CARGO SPECIALIST Ordering Physician: Litzy Farooq FNPResults: 1Negat cassandra Date of Service: 04/12/23Follow Up: 1 Year From Orig inal Mammogram Procedure(s): MM tomosynthesis screening BI Accession Number(s): [id number] cc: Litzy Farooq EXAMINATION: MM SCREENING DIGITAL BREAST TOMOSYNTHESIS, BILATERAL CLINICAL INFORMATION: Screening. Asymptomatic. COMPARISON: Mammography: This study is compared with the only prior mammogram for comparison from 2015. TECHNIQUE: Digital breast tomosynthesis is performed in both the craniocaudal and mediolateral oblique views along with computer-aided detection (CAD). Synthesized 2D images are generated from the tomosynthesis. FINDINGS: There are scattered areas of fibroglandular density (ACR BI-RADS breast composition Category b). The patient has bilateral nipple rings. There are no significant masses, abnormal calcifications, or other abnormalities. MM/MM tomosynthesis screening BI IMPRESSION: No mammographic evidence of malignancy. ASSESSMENT: BI-RADS BI-RADS 1 - Negative RECOMMENDATION: Routine annual mammography screening. 1 year F/U This examination should not preclude the clinical evaluation of a suspicious palpable abnormality. This patient's information was entered into a reminder system with a target due date for their next mammogram. Dictated By: Helene Edwards MD Signed By: <Electronically signed by Helene Edwards MD in OV> 04/12/23 1732 DD/ 1616 TD/TT: District Plant Superintendent: Litzy Farooq MARINE CARGO SPECIALIST IMG BI PROCEDURES Final Result from Last 3 Months or Most Recently Relevant to Health Maintenance Insurance [facility] STANDARD MEDICARE Care Teams Engineering Analyst Relationship Specialty Start Date End Date Litzy Farooq FNP [address] [place] [phone] PCP - General Family Medicine 07/19/22 Nile Parkinson MD [address] [place] [address] Nephrology 08/17/24
== END 2024-10-25 15:21 | disposition home or self-care (01) ==
PROVIDERS: PCP Registered Nurse; Visit Provider Advanced Practice Midwife
DX: N93.9 Abnormal uterine and vaginal bleeding, unspecified (principal); R87.810 Cervical high risk human papillomavirus (HPV) DNA test positive; E11.9 Type 2 diabetes mellitus without complications; E66.01 Morbid (severe) obesity due to excess calories; Z01.419 Encounter for gynecological examination (general) (routine) without abnormal findings
CPT/HCPCS: 99214; G0101; Q0091

== ENCOUNTER 2024-10-25 15:02 | Outpatient (REF) | payer MEDICARE, MEDICAID, SELFPAY ==
[2024-10-26 11:37] LABS: Bacterial Vaginosis PCR POSITIVE (Negative); Candida Group PCR NOT DETECTED (Not Detect); Candida glab krusei PCR NOT DETECTED (Not Detect); Trichomonas vaginalis PCR NOT DETECTED (Not Detect)
[2024-10-26 12:05] LABS: CT PCR NOT DETECTED (Not Detect.); NG PCR NOT DETECTED (Not Detect.)
== END 2024-10-25 15:03 | disposition home or self-care (01) ==
LOC: HO.LAB 15:02
PROVIDERS: Visit Provider Advanced Practice Midwife
DX: Z12.4 Encounter for screening for malignant neoplasm of cervix (principal); Z11.51 Encounter for screening for human papillomavirus (HPV); Z20.2 Contact with and (suspected) exposure to infections with a predominantly sexual mode of transmission; N89.8 Other specified noninflammatory disorders of vagina
CPT/HCPCS: 81515; 87491; 87591; 87626; 88175; 99212; G0101; Q0091

== ENCOUNTER 2024-12-04 09:24 | Outpatient (AMB) | payer MEDICARE, MEDICAID, SELFPAY ==
[2024-12-04 09:48] VITALS: BP 108/78; BMI 53.8
--- NOTE | 2024-12-04 09:48 | MHC.OFFVIS ---
Vital Signs 12/04/24 09:48 Height 5 ft 1 in Weight 285 lb BMI 53.8 BP 108/78 Intake Visit Reasons: Mirena insertion Flag Signalman Required: No Information Interpreted: non-clinical & clinical Civil Engineering Director: Civil Engineering Director Present (Rama GALVAN) Accompanied by: Self / Same As Patient Allergies No Known Allergies Allergy (Verified 12/04/24 09:48) HPI Comments Details: Presenting for Mirena IUD insertion PFS Medical History History of kidney stones Anxiety Endometriosis Migraines PCOS (polycystic ovarian syndrome) Gestational diabetes HTN (hypertension) Obese Surgical History Hx of tubal ligation Hx of lithotripsy Hx of section History of carpal tunnel surgery Family History Son History of open heart surgery Social History Alcohol intake: never Patient Tobacco Use Status: Former Tobacco user Female Reproductive History Menstrual Age of Menarche: 13 Review of Systems Const All systems reviewed & are unremarkable except as noted in HPI and below Reports as per HPI and Reports no additional complaints GI Reports no additional complaints Reports no additional complaints Physical Exam Vital Signs: Last Vital Signs BP 108/78 12/04/24 09:48 BMI result Body Mass Index 53.8 Assessment & Plan Assessment & Plan (1) Abnormal uterine bleeding (AUB): Code(s): N93.9 - Abnormal uterine and vaginal bleeding, unspecified Category: Medical Plan: Failed attempt for IUD insertion because of a non visible high cervix. Discussed with the patient the results of the work up done and options of treatment including but not limited to BCP's, cyclic Progesterone, Mirena IUD, endometrial ablation and hysterectomy. All pros, cons, risks and benefits of each option were discussed with the patient and the patient decided to go ahead with cyclic Provera, so a more detailed discussion re: Progesterone treatment including mechanism of action, benefits (regular menses, endometrial protection form unopposed estrogen and reduction in the risk of endometrial hyperplasia and/or cancer ...), risks (Thrombosis, mood changes, weight gain, breast soreness, ? increased breast ca, others). Instructions were given to use a back- up method for contraception since this is not a method control, take the medication 1 tablet daily starting day 15-24 and to schedule a 3 months follow-up appointment; patient verbalized understanding and agreed with the plan. Medications: New medroxyprogesterone (Provera) start Provera 1 tablet daily from day 15-24 cyclically every months, day 1 being 1st day of menses 10 mg PO DAILY 10 days 30 tabs 0RF Coding Level of Care Code Est Pt Level 3 (74199) Diagnoses Abnormal uterine bleeding (AUB) N93.9
== END 2024-12-04 10:14 | disposition home or self-care (01) ==
LOC: HO.HWS 09:24
PROVIDERS: PCP Registered Nurse; Visit Provider Obstetrics & Gynecology
DX: Z32.02 Encounter for pregnancy test, result negative (principal); N93.9 Abnormal uterine and vaginal bleeding, unspecified
CPT/HCPCS: 99213

== ENCOUNTER → 2024-12-04 09:24 | Outpatient (BNVA) | payer MEDICARE, MEDICAID, SELFPAY | PROVIDERS: PCP Registered Nurse; Visit Provider Obstetrics & Gynecology | DX: N93.9 Abnormal uterine and vaginal bleeding, unspecified (principal) | CPT/HCPCS: 81025; 99212 ==

== ENCOUNTER 2025-02-11 13:44 | Outpatient (REF) | payer MEDICARE, MEDICAID, SELFPAY ==
--- OUTSIDE RECORDS SUMMARY | 2025-02-11 15:12 | XMS_ITS | Encounter Summary ---
Author Organization [employer] Address [address] [place] [address] 7 [place] [address] Care Team Providers Care Direct Care Staffer Name Role Phone Litzy Farooq Primary Care Provider [phone] Nile Parkinson MD Unavailable Reason for Visit * Reason Onset Date Comments PT1 06/27/2024 Encounter Details Date Type Department Care Team ([facility] st Contact Info) Description 06/27/2024 Telephone [facility] & PEDS [address] [place], [place] [phone] Litzy Farooq FNP [address] [place], [place] [phone] PT1 Social History Tobacco Use Types Packs/Day [...] Y/N: Yes Provider name or facility name: [facility] [place] Address: [address] [place] [address] Escort needed: Y/N: No Do you have a wheelchair: Y/N: No If yes- Manual or electric: Visits: 4-5 times a month for 12 months documented in this encounter Plan of Treatment Upcoming Encounters Date Type Department Care Team (Late st Contact Info) Description 02/25/2025 11:15 AM EDT Clinical Support [facility] [address] [place] [address] documented as of this encounter Visit Diagnoses Not on filedocumented in this encounter Additional Health Concerns Assessment Noted Time PHQ-9 Depression Total Score: 7 07/18/20 23 1:09 PM EST documented as of this encounter Care Teams Direct Care Staffer Relationship Specialty Start Date End Date Litzy Farooq FNP [address] [place] [address] PCP - General Family Medicine 07/19/22 Nile Parkinson MD [address] [place] [address] Drive [address] [place] [address] Nephrology 08/17/24 documented as of this encounter
[2025-02-11 16:12] LABS: CT PCR NOT DETECTED (Not Detect.); NG PCR NOT DETECTED (Not Detect.)
== END 2025-02-11 13:45 | disposition home or self-care (01) ==
LOC: HO.CHCLNP 13:44
PROVIDERS: Visit Provider Registered Nurse
DX: Z20.2 Contact with and (suspected) exposure to infections with a predominantly sexual mode of transmission (principal)
CPT/HCPCS: 87491; 87591

== ENCOUNTER 2025-02-28 10:18 | Outpatient (AMB) | payer MEDICARE, MEDICAID, SELFPAY ==
--- NOTE | 2025-02-28 10:54 | A.OFFVIS_ITS ---
Vital Signs 02/28/25 10:57 BP 98/72 Intake Visit Reasons: Medication follow up Accompanied by: Self / Same As Patient Allergies No Known Allergies Allergy (Verified 02/28/25 10:58) HPI Comments Details: Presenting for three-month follow-up. The patient has been taking Provera cyclicly, periods are regular [facility] Medical History History of kidney stones Anxiety Endometriosis Migraines PCOS (polycystic ovarian syndrome) Gestational diabetes HTN (hypertension) Obese Surgical History Hx of tubal ligation Hx of lithotripsy Hx of section History of carpal tunnel surgery Family History Son History of open heart surgery Social History Alcohol intake: never Patient Tobacco Use Status: Former Tobacco user Female Reproductive History Menstrual Age of Menarche: 13 Duration of menses: 3-5 days Date of last menstrual period: 02/14/25 Review of Systems Const All systems reviewed & are unremarkable except as noted in HPI and below Reports as per HPI and Reports no additional complaints GI Reports no additional complaints Reports no additional complaints Physical Exam Vital Signs: Last Vital Signs BP 98/72 02/28/25 10:57 Assessment & Plan Assessment & Plan (1) Abnormal uterine bleeding (AUB): Code(s): N93.9 - Abnormal uterine and vaginal bleeding, unspecified Category: Medical Plan: Instructions given the patient to schedule her mammogram that was ordered in 04/14. Provera 10 mg p.o. q.d. day 15- refill sent to the patient's pharmacy. All questions answered, the patient verbalized understanding Medications: Changed From medroxyprogesterone (Provera) start Provera 1 tablet daily from day 15-24 cyclically every months, day 1 being 1st day of menses 10 mg PO DAILY 10 days 30 tabs 0RF To medroxyprogesterone (Provera) start Provera 1 tablet daily from day 15-24 cyclically every months, day 1 being 1st day of menses 10 mg PO DAILY 30 tabs 3RF 90 days Coding Level of Care Code Est Pt Level 3 (41264) Diagnoses Abnormal uterine bleeding (AUB) N93.9
[2025-02-28 10:57] VITALS: BP 98/72
== END 2025-02-28 11:50 | disposition home or self-care (01) ==
LOC: HO.HWS 10:19
PROVIDERS: PCP Registered Nurse; Visit Provider Obstetrics & Gynecology
DX: N93.9 Abnormal uterine and vaginal bleeding, unspecified (principal)
CPT/HCPCS: 99213

== ENCOUNTER → 2025-02-28 10:18 | Outpatient (BNVA) | payer MEDICARE, MEDICAID, SELFPAY | PROVIDERS: PCP Registered Nurse; Visit Provider Obstetrics & Gynecology | DX: N93.9 Abnormal uterine and vaginal bleeding, unspecified (principal); Z79.899 Other long term (current) drug therapy | CPT/HCPCS: 99212 ==

== ENCOUNTER → 2025-03-04 14:00 | Outpatient (BNV) | payer MEDICARE, MEDICAID, SELFPAY | PROVIDERS: PCP Registered Nurse; Visit Provider Radiology Diagnostic Radiology | DX: R07.9 Chest pain, unspecified (principal); R06.02 Shortness of breath | CPT/HCPCS: 71045 ==

== ENCOUNTER 2025-03-04 14:22 | Emergency (ER) | payer MEDICARE, MEDICAID, SELFPAY ==
--- NOTE | ~2025-03-04 | XR_ITS ---
EXAMINATION: XR CHEST CLINICAL INFORMATION: cp/sob COMPARISON: December 23, 2021 TECHNIQUE: Frontal view of the chest was obtained. FINDINGS: No significant abnormality is noted involving the heart, lungs, mediastinum, bony thorax or soft tissues. XR/XR chest 1V IMPRESSION: No acute disease Electronically signed by: Babak Nails MD 03/04/2025 03:03 PM EDT RP
--- NOTE | 2025-03-04 14:24 | ECG_ITS ---
Test Reason : CHEST PAIN Blood Pressure : */* mmHG Vent. Rate : 80 BPM Atrial Rate : 80 BPM P-R Int : 168 ms QRS Dur : 84 ms QT Int : 366 ms P-R-T Axes : 14 4 8 degrees QTcB Int : 422 ms Normal sinus rhythm Normal ECG When compared with ECG of 03-Mar-2022 17:53, No significant change was found Referred By: Generic ED Physician Electronically Signed By: NIKKI HOOKS
[2025-03-04 14:47] VITALS: BP 120/73; PULSE 84; RESP 16; TEMP 36.3; O2SAT 95; BMI 42.9
--- NOTE | 2025-03-04 14:51 | ED.CHESTPAIN ---
HPI - Chest Pain General Chief Complaint: Chest Pain Stated Complaint: chest pain stopped taking hB meds Time Seen by Provider: 03/04/25 19:07 Source: patient Mode of arrival: ambulatory Limitations: no limitations History of Present Illness ED Provider: sidney marie np HPI narrative: Patient is a 44-year-old female who presents emergency department for evaluation. She reports that she awoke at approximately 10:00 this morning with diffuse pain throughout the entire right anterior chest upper lateral neck into her right shoulder the posterior shoulder blade as well as the right upper arm. She admits to a history of chronic right shoulder/posterior back pain for which she uses topical Lidoderm patches she tries to avoid sleeping on this side. She admits that the pain was present when she woke up and has been constant foods. She has not used any of her pain patches more any OTC medications for this pain. Pain in the chest is exacerbated with movement of her arm. She denies having any shortness of breath, although the initial nursing triage and arm knee note endorses shortness of breath and ?feeling as though someone is sitting on her chest?, she adamantly denies this. She does state with deep inspiration that she feels a ?tingling sensation? throughout her chest but again denies shortness of breath. Denies dyspnea on exertion. Denies orthopnea. She reports that she was recently started on olmesartan 5 mg about 1-2 weeks ago, she has been monitoring her blood pressures at home. Yesterday had a systolic blood pressure in the 80s, she called her doctor's office and advised her to stop taking the olmesartan so she has. Related Data Home Medications ?Medication ?Instructions ?Recorded ?Confirmed hydroxyzine HCl 25 mg tablet 25 mg PO TID PRN Anxiety 07/18/23 10/25/24 melatonin 5 mg tablet 5 mg PO BEDTIME PRN insomnia 07/18/23 10/25/24 metformin 500 mg tablet 500 mg PO QPM 03/16/24 10/25/24 topiramate 50 mg tablet 50 mg BEDTIME 03/16/24 10/25/24 fluoxetine 20 mg capsule 30 mg PO DAILY 08/08/24 10/25/24 olmesartan 5 mg tablet 5 mg PO DAILY 02/28/25 rosuvastatin 10 mg tablet 10 mg PO DAILY 02/28/25 Previous Rx's ?Medication ?Instructions ?Recorded ibuprofen 600 mg tablet 600 mg PO Q6H PRN pain #20 tabs 12/24/21 tizanidine 2 mg tablet 2 mg PO TID PRN muscle spasticity 07/25/24 #90 tabs metronidazole 0.75 % (37.5 mg/5 1 appful vaginal BID 5 days #70 10/29/24 gram) vaginal gel grams medroxyprogesterone 10 mg tablet 10 mg PO DAILY 90 days #30 tabs 02/28/25 (Provera) Allergies Allergy/AdvReac Type Severity Reaction Status Date / Time No Known Allergies Allergy Verified 03/04/25 14:49 Review of Systems Review of Systems: Yes all other systems are reviewed and are negative [facility] Past Medical History Attestation statement: The following information was validated with the patient. Source: old records reviewed Medical History History of kidney stones Anxiety Endometriosis Migraines PCOS (polycystic ovarian syndrome) Gestational diabetes HTN (hypertension) Obese Surgical History Hx of tubal ligation Hx of lithotripsy Hx of section History of carpal tunnel surgery Family History Family History Son History of open heart surgery Social History Social History Alcohol intake: never Patient Tobacco Use Status: Former Tobacco user Smoked in Last 30 Days: No Use of substances other than those prescribed or required for medical reasons: No Advance Directives: No Advance Directives Information Provided: No Do you have a plan to hurt others: No Plan Patient : No Physical Exam Vital Signs: Vital Signs: Last Vital Signs Temp 97.8 F 03/04/25 21:34 Pulse 75 03/04/25 21:34 Resp 18 03/04/25 21:34 BP 144/73 H 03/04/25 21:34 Pulse Ox 98 03/04/25 21:34 O2 Del Method Room Air 03/04/25 19:34 BMI result Body Mass Index 42.9 Appearance: Alert.?Oriented to person, place and time. No acute distress.?Normal affect. Eyes: Pupils equal, round and reactive to light.? ENT: Pharynx normal.?? Neck: Normal inspection.? Neck supple.??No JVD. CVS: Heart sounds normal. Normal heart rate and rhythm.? Pulses normal.?? Respiratory: No respiratory distress.? Lung sounds clear to auscultation bilaterally. R anterior chest wall with TTP, and reproducible pain? Abdomen: Soft and non-tender. Normoactive bowel sounds. No pulsatile mass.?? Skin: Skin warm and dry.? Normal skin color.? ?? Extremities: No lower extremity edema.? No calf ttp. Diffuse tenderness over right SCM, trapezius, and shoulder joint on palpation, no erythema, warmth, rashes or lesions Neuro: Moves all extremities spontaneously. Sensation intact bilaterally. No focal neuro deficits. Ambulates with normal steady gait. Course Course Course Narrative: 03/04/25 1451 FABIANO Rapp This is a Rapid Medical Examination (RME) performed by Jasper Lara PA-C in triage. Full HPI, ROS, assessment and treatment plan per primary provider in the Main ED. Hx: 44 yo F hx htn, dm here for eval of right sided cp radiating to neck and jaw since this morning. assoc sob. feels as though someone is sitting on her chest. stopped taking her BP meds d/t recent fluctuations in pressure. Plan: labs, ekg, trop, cxr Medications Administered Discontinued Medications Generic Name Dose Route Start Last Admin Trade Name Freq PRN Reason Stop Dose Admin Ketorolac Tromethamine 15 mg 03/04/25 20:20 03/04/25 20:58 Ketorolac Tromethamine 15 Mg/Ml Vial IM 03/04/25 20:21 15 mg ONCE ONE Administration Medical Decision Making Medical Decision Making [facility] Narrative: Patient is a 44-year-old female with past medical history of obesity, diabetes, hypertension, nephrolithiasis, anxiety, HPV, PCOS, endometriosis, gestational diabetes who presents to the emergency department for evaluation with complaint of right chest/shoulder/scapular/right upper extremity pain onset this morning upon awakening. Has history of recurrent right shoulder/upper back pain for which she manages with topical pain medication. She denies any precipitating injury. As per HPI, there was initial documentation of shortness of breath which she adamantly denies at this time. No evidence of volume overload or shock on exam. EKG without signs of acute ischemia, or STEMI. Initial troponin is negative. She did discontinue her olmesartan yesterday per her primary care doctor, she is normotensive today. Low suspicion for acute PE (PERC negative), pneumothorax, thoracic aortic dissection, cardiac effusion / tamponade. No recent trauma or injury, no tracheal deviation, unlikely tension pneumothorax. Chest x-ray has been obtained and shows no consolidation or infiltrate, no pleural effusions. No recent URI symptoms to suggest viral illness, pneumonia, costochondritis. No abdominal tenderness upon palpation, negative Cat sign, unlikely acute cholecystitis, choledocholithiasis, no fever or jaundice to suggest acute cholangitis, may possibly be biliary colic secondary to cholelithiasis. Denies associated acid reflux, no tenderness upon palpation over the epigastrium or left upper quadrant to suggest gastritis, no recent hematemesis history less likely to suggest PUD. Denies excessive alcohol consumption, history of diabetes, lower suspicion acute pancreatitis. I suspect this is musculoskeletal in nature, she received Toradol in the emergency department, with improvement in pain. Delta troponin negative. Stable for discharge home, outpatient follow-up with primary care provider and given strict return precautions. All questions answered Differential Diagnosis Differential Diagnoses: The differential diagnosis associated with the presentation includes (See narrative above) Admission/Observation Consideration of admission/observation: Escalation of care including admission/observation considered (See narrative above and course narrative for further detail) Lab Data MDM Lab Attestation statement: I reviewed the patient's lab results. 03/04/25 16:35 03/04/25 16:35 Labs: Lab Results 03/04/25 03/04/25 Range/Units 16:35 20:28 WBC 11.0 H (4.8-10.8) X10*3/uL RBC 4.62 (4.20-5.50) X10*6/uL Hgb 12.5 (12.0-16.0) g/dl Hct 38.3 (37.0-47.0) % MCV 82.9 (80.0-98.0) fL MCH 27.1 (27.0-33.0) pg MCHC 32.6 (31.0-35.0) g/dl RDW 13.5 (11.0-16.0) % Plt Count 412 H (160-400) X10*3/uL MPV 10.2 (9.4-12.3) fL Immature Gran % (Auto) 0.3 (0.0-0.4) % Neut % (Auto) 64.1 (45-73) % Lymph % (Auto) 26.0 (20-40) % [place] % (Auto) 6.0 (2-11) % Eos % (Auto) 2.8 (0-4) % Baso % (Auto) 0.8 (0-2) % Lymph # (Auto) 2.9 (1.2-4.9) X10*3/uL [place] # (Auto) 0.7 (0.1-1.2) X10*3/uL Eos # (Auto) 0.3 (0.0-0.4) X10*3/uL Baso # (Auto) 0.1 (0.0-0.2) X10*3/uL Abs Immat Gran (auto) 0.03 (0.00-0.03) X10*3/uL Absolute Neuts (auto) 7.1 (2.0-8.3) x10*3/uL Absolute Nucleated RBC 0.000 (0.0-0.012) X10*3/uL Nucleated RBC % (auto) 0.0 (0.0-0.2) /100WBC Sodium 139 (135-145) mmol/L Potassium 3.9 (3.3-5.1) mmol/L Chloride 106 (96-108) mmol/L Carbon Dioxide 26 (22-29) mmol/L Anion Gap 11 L (12-20) BUN 11 (9-16) mg/dL Creatinine 0.70 (0.5-1.4) mg/dL Estim Creat Clear Calc 127.8 Estimated GFR > 60 Random Glucose 98 (60-115) mg/dL Calcium 8.7 (8.4-10.2) mg/dL Total Bilirubin 0.6 (0.0-1.0) mg/dL AST 32 H (5-31) U/L ALT 30 (0-31) U/L Alkaline Phosphatase 61 (39-117) U/L Troponin I High Sens < 2.7 < 2.7 (<3.5-17.0) ng/L Total Protein 8.2 H (6.5-8.0) g/dL Albumin 4.2 (3.5-5.0) g/dL Influenza Type A (PCR) NEGATIVE (Negative) Influenza Type B (PCR) NEGATIVE (Negative) RSV RNA Qual (PCR) NEGATIVE (Negative) SARS-CoV-2 RNA (RT-PCR) NEGATIVE (Negative) Independent Interpretation I performed an independent interpretation of an: EKG (Normal sinus rhythm with ventricular rate of 80, normal YONIS, QTC of the origin 22) and Plain X-Ray (See narrative above) Radiology Impression Discussion of test interpretation with radiology: I have reviewed the radiologist's reading. Radiologist Impression: XR/XR chest 1V IMPRESSION: No acute disease External Record Review External record reviewed: Outpatient record Tests considered The following testing was considered but not selected: low suspicion for PE, perc negative, would defer CT chest. Prescription Management I considered prescription management with: Pain Medication Chronic Conditions Patient?s care impacted by: Other (See narrative above) Discharge Plan Discharge Clinical Impression: Chest pain Patient Disposition: Home, Self-Care Instructions: Noncardiac Chest Pain (ED) Additional Instructions: As discussed, the pain in your right chest today is most concerning for musculoskeletal pathology given the association of pain to the shoulder arm and back as well that worsens with movement of the arm. Workup today in the emergency department was reassuring. Chest x-ray was normal. EKG did not show concerning findings. Cardiac markers; troponin were normal x2 which is reassuring. Not consistent with a heart attack. Please be sure to rest over the next few days, by ice/heat to areas of pain for 10-15 minutes 4-6 times daily. You can take ibuprofen 200 mg, 3 tablets (600mg) every 6-8 hours as needed for pain, in addition to Tylenol 500 mg, 2 tablets (1,000mg) every 4-6 hours as needed for pain, but not to exceed 3 doses daily (3,000mg).? Contact your primary care doctor to arrange for a follow-up visit within the next 3 days. You may return back to emergency department any new or worsening symptoms or concerns. Prescriptions: No Action metronidazole 0.75 % (37.5mg/5 gram) gel 1 appful vaginal BID 5 Days Qty: 70 0RF ibuprofen 600 mg tablet 600 mg PO Q6H PRN (Reason: pain) Qty: 20 0RF metformin 500 mg tablet 500 mg PO QPM topiramate 50 mg tablet 50 mg BEDTIME tizanidine 2 mg tablet 2 mg PO TID PRN (Reason: muscle spasticity) Qty: 90 1RF Rx Instructions: No driving while taking this medication. May cause drowsiness. Do not take with alcohol or other ROLLOUT MANAGER Depressants. olmesartan 5 mg tablet 5 mg PO DAILY rosuvastatin 10 mg tablet 10 mg PO DAILY medroxyprogesterone [Provera] 10 mg tablet 10 mg PO DAILY 90 Days Qty: 30 3RF Rx Instructions: start Provera 1 tablet daily from day 15-24 cyclically every months, day 1 being 1st day of menses hydroxyzine HCl 25 mg tablet 25 mg PO TID PRN (Reason: Anxiety) melatonin 5 mg tablet 5 mg PO BEDTIME PRN (Reason: insomnia) fluoxetine 20 mg capsule 30 mg PO DAILY Referrals: Litzy Farooq FNP [Primary Care Provider, Family Practice] Interventions: ED Discharge Assessment Last Done: 03/04/25 21:34 Discharge Date/Time: 03/04/25 21:35 Print Language: Chilean
[2025-03-04 16:42] LABS: MANUAL DIFF FLAG NO
[2025-03-04 16:43] LABS: Hematocrit 38.3 % (37.0-47.0); Hemoglobin 12.5 g/dl (12.0-16.0); Imm Gran Abs Auto 0.03 X10*3/uL (0.00-0.03); Imm Gran Pct Auto 0.3 % (0.0-0.4); Lymphocytes Absolute Auto 2.9 X10*3/uL (1.2-4.9); Mean Corpuscular HGB Conc 32.6 g/dl (31.0-35.0); Mean Corpuscular Hemoglobin 27.1 pg (27.0-33.0); Mean Corpuscular Volume 82.9 fL (80.0-98.0); NRBC Abs Auto 0.000 X10*3/uL (0.0-0.012); NRBC Pct Auto 0.0 /100WBC (0.0-0.2); Platelet Count 412 X10*3/uL (160-400); Red Blood Count 4.62 X10*6/uL (4.20-5.50); White Blood Count 11.0 X10*3/uL (4.8-10.8)
[2025-03-04 16:56] LABS: Alanine Aminotransferase 30 U/L (0-31); Albumin Level 4.2 g/dL (3.5-5.0); Alkaline Phosphatase 61 U/L (39-117); Anion Gap 11 (12-20); Aspartate Amino Transferase 32 U/L (5-31); Blood Urea Nitrogen 11 mg/dL (9-16); Calcium 8.7 mg/dL (8.4-10.2); Carbon Dioxide 26 mmol/L (22-29); Chloride 106 mmol/L (96-108); Creatinine Clr Calc Pharmacy 127.8; Estimated Glomerular Filt Rate > 60; Potassium 3.9 mmol/L (3.3-5.1); Sodium 139 mmol/L (135-145); Total Protein 8.2 g/dL (6.5-8.0)
[2025-03-04 17:03] LABS: Troponin-I High Sensitivity < 2.7 ng/L (<3.5-17.0)
[2025-03-04 17:20] LABS: Resp Syncy Virus RNA Qual PCR NEGATIVE (Negative); SARS COV2 PCR INHOUSE NEGATIVE (Negative)
[2025-03-04 19:34] VITALS: BP 127/79; PULSE 74; RESP 17; TEMP 36.6; O2SAT 100
[2025-03-04 20:59] LABS: Troponin-I High Sensitivity < 2.7 ng/L (<3.5-17.0)
[2025-03-04 21:00] VITALS: BP 144/73; PULSE 75; RESP 18; O2SAT 98
[2025-03-04 21:34] VITALS: BP 144/73; PULSE 75; RESP 18; TEMP 36.6; O2SAT 98
== END 2025-03-04 21:35 | disposition home or self-care (01) ==
PROVIDERS: Nurse Practitioner Family; Emergency Provider Emergency Medicine; PCP Registered Nurse
DX: R07.9 Chest pain, unspecified (principal); R06.02 Shortness of breath; M54.2 Cervicalgia; M25.519 Pain in unspecified shoulder
CPT/HCPCS: 36415; 71045; 80053; 84484; 85025; 87637; 93005; 96372; 99284; J1885

== ENCOUNTER → 2025-03-04 14:24 | Outpatient (BNV) | payer MEDICARE, MEDICAID, SELFPAY | PROVIDERS: Emergency Provider Emergency Medicine; PCP Registered Nurse; Visit Provider Internal Medicine | DX: R07.89 Other chest pain (principal) | CPT/HCPCS: 93010 ==

== ENCOUNTER 2025-03-15 13:26 | Outpatient (REF) | payer MEDICARE, MEDICAID, SELFPAY ==
--- OUTSIDE RECORDS SUMMARY | 2025-03-15 13:28 | XMS_ITS | Encounter Summary ---
Author Organization [employer] Address [address] [facility] [address] [place] [address] Care Team Providers Care Blade Groover Name Role Phone Litzy Farooq Primary Care Provider [phone] Nile Parkinson MD Unavailable Encounter Details Date Type Department Care Team ([facility] st Contact Info) Description 02/18/2025 Results Follow-Up [facility] MED & PEDS [address] [place], [place] [phone] Litzy Fraooq FNP [address] [place] [address] Chlamydia/N. Gonorrhoeae RNA, TMA, Urogenitial Social History Tobacco Use Types Packs/Day Years Used Date Smoking Tobacco: Former Passive Smoke Exposure: Never Smokeless Tobacco: Never Alcohol Use Standard Drinks/Week Comments Never 0 (1 standard drink = 0.6 oz pur e alcohol) Depression Answer Date Recorded Patient Health Questionnaire-9 Score 8 02/11/2025 Patient Health Questionnaire-9 Score 8 02/11/2025 Last PHQ-9: Questionnaire Data Not on file 0 02/11/2025 Housing Stability Answer Date Recorded What is [...] Answer Date Recorded Patient Health Questionnaire-2 Score 0 02/11/2025 Internet Access Answer Date Recorded Internet Access [...] Care Team (Late st Contact Info) Description 03/19/2025 8:30 AM EDT Office Visit [facility]ED[facility] [address] [place] [address] Sintia Paz MD [address] [place] [address] documented as of this encounter Visit Diagnoses Not on filedocumented in this encounter Additional Health Concerns Assessment Noted Time PHQ-9 Depression Total Score: 8 02/12/20 25 11:57 AM EDT documented as of this encounter Care Teams Blade Groover Relationship Specialty Start Date End Date Litzy Farooq FNP [address] [place] [address] PCP - General Family Medicine 07/19/22 Nile Parkinson MD [address] [place] [address] Nephrology 08/17/24 documented as of this encounter
== END 2025-03-15 13:27 | disposition home or self-care (01) ==
LOC: HO.MAMMO 13:26
PROVIDERS: PCP Registered Nurse; Visit Provider Obstetrics & Gynecology
DX: Z12.31 Encounter for screening mammogram for malignant neoplasm of breast (principal)
CPT/HCPCS: 77063; 77067

== ENCOUNTER → 2025-03-15 14:00 | Outpatient (BNV) | payer MEDICARE, MEDICAID, SELFPAY | PROVIDERS: PCP Registered Nurse; Visit Provider Internal Medicine | DX: Z12.31 Encounter for screening mammogram for malignant neoplasm of breast (principal) | CPT/HCPCS: 77063; 77067 ==

== ENCOUNTER 2025-04-01 10:56 | Outpatient (REF) | payer MEDICARE, MEDICAID, SELFPAY ==
--- OUTSIDE RECORDS SUMMARY | 2025-04-01 11:40 | XMS_ITS | Encounter Summary ---
Author Organization [employer] Address [address] [facility] 7[address] [place] [address] Care Team Providers Care Finisher Fine Diamond Dies Name Role Phone Litzy Farooq Primary Care Provider [phone] Nile Parkinson MD Unavailable Encounter Details Date Type Department Care Team ([facility] st Contact Info) Description 02/18/2025 Results Follow-Up [facility] MED & PEDS [address] [place], [place] [phone] Litzy Farooq FNP [address] [place] [address] Chlamydia/N. Gonorrhoeae RNA, TMA, Urogenitial Social History [...] as of this encounter Plan of Treatment Not on file documented as of this encounter Visit Diagnoses Not on filedocumented in this encounter Additional Health Concerns Assessment Noted Time PHQ-9 Depression Total Score: 8 02/12/20 25 11:57 AM EDT documented as of this encounter Care Teams Finisher Fine Diamond Dies Relationship Specialty Start Date End Date Litzy Farooq FNP [address] [place] [address] PCP - General Family Medicine 07/19/22 Nile Parkinson MD [address] [place] [address] [address] [place] [address] Nephrology 08/17/24 documented as of this encounter
[2025-04-01 14:23] LABS: MANUAL DIFF FLAG NO
[2025-04-01 14:45] LABS: Hematocrit 40.8 % (37.0-47.0); Hemoglobin 12.6 g/dl (12.0-16.0); Imm Gran Abs Auto 0.05 X10*3/uL (0.00-0.03); Imm Gran Pct Auto 0.5 % (0.0-0.4); Lymphocytes Absolute Auto 2.8 X10*3/uL (1.2-4.9); Mean Corpuscular HGB Conc 30.9 g/dl (31.0-35.0); Mean Corpuscular Hemoglobin 26.3 pg (27.0-33.0); Mean Corpuscular Volume 85.0 fL (80.0-98.0); NRBC Abs Auto 0.000 X10*3/uL (0.0-0.012); NRBC Pct Auto 0.0 /100WBC (0.0-0.2); Platelet Count 481 X10*3/uL (160-400); Red Blood Count 4.80 X10*6/uL (4.20-5.50); White Blood Count 10.3 X10*3/uL (4.8-10.8)
[2025-04-01 15:13] LABS: Anion Gap 10 (12-20); Blood Urea Nitrogen 12 mg/dL (9-16); Calcium 9.0 mg/dL (8.4-10.2); Carbon Dioxide 22 mmol/L (22-29); Chloride 110 mmol/L (96-108); Estimated Glomerular Filt Rate > 60; Potassium 3.8 mmol/L (3.3-5.1); Sodium 138 mmol/L (135-145)
[2025-04-02 08:45] LABS: HIV Num 1 0.05 S/CO (0.00-0.99)
[2025-04-02 16:18] LABS: HCV Log PCR <1.18 NOT DETECTED Log IU/mL (NOT DETECTED); HepC Viral Load <15 NOT DETECTED IU/mL (NOT DETECTED)
[2025-04-04 10:19] LABS: TS Negative Control Passed; TS Panel A 0; TS Panel B 0; TS Positive Control Passed; TSpotTB Negative (Negative)
== END 2025-04-01 10:57 | disposition home or self-care (01) ==
LOC: HO.CHCLDS 10:56
PROVIDERS: Visit Provider Registered Nurse
DX: Z00.00 Encounter for general adult medical examination without abnormal findings (principal); Z11.4 Encounter for screening for human immunodeficiency virus [HIV]; Z11.3 Encounter for screening for infections with a predominantly sexual mode of transmission; Z11.59 Encounter for screening for other viral diseases; Z11.1 Encounter for screening for respiratory tuberculosis; E11.9 Type 2 diabetes mellitus without complications
CPT/HCPCS: 36415; 80048; 85025; 86481; 86592; 87389; 87522